=== PATIENT | female | born 1960 | race Two or more races ===

== ENCOUNTER 2021-04-11 18:38 | Inpatient (IN) | payer MEDICAID ==
[~2021-04-11] VITALS: Ht 30.5 cm; Wt 62.3 kg
[2021-04-11] MEDS: ETOMIDATE (2MG/ML) 20ML VIAL IV ONE ×2 (18:41→19:52)
[2021-04-11] MEDS ORDERED: SUCCINYLCHOLINE CHLORIDE 20 MG/ML 10ML VIAL IV ONE (18:41)
[2021-04-11] MEDS: SUCCINYLCHOLINE CHLORIDE 20 MG/ML 10ML VIAL IV ONE (18:42)
[2021-04-11 18:50] VITALS: BP 73/37
[2021-04-11] MEDS ORDERED: SODIUM CHLORIDE 0.9% 1,000 ML IVB ONE (19:00)
[2021-04-11] MEDS ORDERED: CEFEPIME 2 GM in SODIUM CHL 0.9% 50 ML IV ONE (19:00)
[2021-04-11] MEDS: MIDAZOLAM DRIP 50 mg/50mL 50 ML IV SCH (19:00)
[2021-04-11] MEDS ORDERED: VANCOMYCIN 1GM/250ML 250 ML IV ONE (19:00)
[2021-04-11] MEDS ORDERED: NOREPINEPHRINE 8 MG/250ML KIT 250 ML IV ONE (19:16)
[2021-04-11] MEDS ORDERED: MIDAZOLAM DRIP 50 mg/50mL 50 ML IV ONE (19:24)
[2021-04-11] MEDS ORDERED: HYDROCORTISONE SOD SUCC 100 MG/2ML INJ VIAL IV ONE (19:30)
[2021-04-11] MEDS ORDERED: SODIUM BICARBONATE 8.4% INJ 50ML SYRINGE ONE (19:30)
[2021-04-11 19:57] LABS: Basophils # (auto) 0.1 10 ^3/uL (0-0.2); Eosinophils # (auto) 0 10 ^3/uL (0-0.8); Lymphocytes % (auto) 15.7 % (10.0-50.0); Nucleated Red Blood Cells % 0.1 %
[2021-04-11 19:58] LABS: Basophils % (auto) 0.4 % (0.0-2.0); Eosinophils % (auto) 0.1 % (0.0-7.0); Hematocrit 43.1 % (36.0-46.0); Hemoglobin 11.1 g/dL (12.2-16.2); Lymphocytes # (auto) 2.6 10 ^3/uL (0.4-5.4); Mean Corpuscular Hemoglobin 25.5 pg (28.0-32.0); Mean Corpuscular Hgb Conc. 25.7 g/dL (32.0-36.0); Mean Corpuscular Volume 99.5 fL (80.0-100.0); Monocytes # (auto) 0.5 10 ^3/uL (0-1.3); Monocytes % (auto) 3.3 % (0.0-12.0); Neutrophils # (auto) 13.1 10 ^3/uL (1.6-8.6); Neutrophils % (auto) 80.5 % (37.0-80.0); Red Blood Cells 4.33 10^6/uL (4.0-5.20); White Blood Cell 16.3 10^3/uL (4.4-10.8)
[2021-04-11 20:00] LABS: Red Cell Distribution Width 20.7 % (11.8-14.3)
[2021-04-11] MEDS ORDERED: SODIUM BICARBONATE 8.4 % INJ 50ML VIAL IV ONE (20:00)
[2021-04-11 20:04] LABS: Urine Bacteria NONE SEEN /hpf (None Seen); Urine Blood 1+ /uL (Negative); Urine Specific Gravity 1.015 (1.001-1.035); Urine WBC <1 /hpf (0 - 5)
[2021-04-11 20:09] LABS: Alcohol, Urine < 3.0 mg/dL (0-10); Amphetamine Screen, Urine NEGATIVE (NEGATIVE); Barbiturate Scree,Urine NEGATIVE (NEGATIVE); Benzodiazephine Screen, Urine NEGATIVE (NEGATIVE); Cannabinoid Screen, Urine NEGATIVE (NEGATIVE); Opiate Scree,Urine NEGATIVE (NEGATIVE); Phencyclidine Screen, Urine NEGATIVE (NEGATIVE)
[2021-04-11 20:11] LABS: Chloride 113 mmol/L (98-107); Sodium 139 mmol/L (136-145)
[2021-04-11 20:17] LABS: Cocaine Screen, Urine NEGATIVE (NEGATIVE)
[2021-04-11 20:18] LABS: Alanine Aminotransferase 47 U/L (13-56); Albumin 2.8 g/dL (3.4-5.0); Alkaline Phosphatase 236 U/L (45-117); Anion Gap 22 (5-15); Aspartate Aminotransferase 142 U/L (15-37); BUN/Creatinine Ratio 21.2; Bilirubin, Total 0.5 mg/dL (0.2-1.0); Blood Alcohol < 3.0 mg/dL (0-5); Blood Urea Nitrogen 43 mg/dL (7-18); Calcium 7.4 mg/dL (8.5-10.1); GFR African American 32 mL/min; GFR Non-African American 26 mL/min; Total Protein 6.3 g/dL (6.4-8.2)
[2021-04-11 20:28] LABS: Carbon Dioxide 4 mmol/L (21-32); Glucose 745 mg/dL (74-106); Magnesium 4.1 mg/dL (1.6-2.6); Potassium 5.9 mmol/L (3.5-5.1)
[2021-04-11] MEDS: NOREPINEPHRINE 8 MG/250ML KIT 250 ML IV SCH (21:16)
[2021-04-11 21:45] VITALS: BP 122/73
[2021-04-11] MEDS ORDERED: DEXTROSE (50%) 50ML SYRG IV PRN (21:45)
[2021-04-11] MEDS ORDERED: InsuLIN R (HUMAN) 100 UNITS in SODIUM CHL 0.9% 99 ML IV SCH (21:45)
[2021-04-11 22:27] LABS: BUN/Creatinine Ratio 22.7; Calcium 7.8 mg/dL (8.5-10.1); Potassium 5.5 mmol/L (3.5-5.1)
[2021-04-11] MEDS: ACCU-CHEK COMFORT CURVE STRIP VI SCH (23:00)
[2021-04-11] MEDS ORDERED: InsuLIN REG 1unit/0.01ml Soln (100units/ml) ONE (23:51)
[2021-04-12] MEDS: HEPARIN SODIUM (PORCINE) 5000 UNITS/ML 1ML VIAL SC SCH ×2 (00:07→10:00)
[2021-04-12] MEDS: MIDAZOLAM DRIP 50 mg/50mL 50 ML IV SCH ×2 (01:45→19:30)
[2021-04-12] MEDS: ACCU-CHEK COMFORT CURVE STRIP VI SCH ×23 (01:45→20:29)
[2021-04-12] MEDS ORDERED: SODIUM CHLORIDE 0.9% 1,000 ML IV SCH (01:45)
[2021-04-12 02:09] VITALS: BP 118/77
[2021-04-12] MEDS ORDERED: NITROGLYCERIN 0.4 MG SL TAB SL PRN (04:00)
[2021-04-12] MEDS ORDERED: InsuLIN R (HUMAN) 100 UNITS in SODIUM CHL 0.9% 99 ML IV SCH (04:00)
[2021-04-12] MEDS ORDERED: DEXTROSE (50%) 50ML SYRG IV PRN ×2 (04:00→18:30)
[2021-04-12] MEDS ORDERED: ONDANSETRON HCL 4 MG/2 ML VIAL IV PRN (04:00)
[2021-04-12] MEDS ORDERED: MORPHINE SULFATE INJECTION 2 MG/ML SYRG IV PRN (04:00)
[2021-04-12 04:22] LABS: Calcium 7.4 mg/dL (8.5-10.1); Potassium 4.4 mmol/L (3.5-5.1)
[2021-04-12 04:31] LABS: BUN/Creatinine Ratio 23.6
[2021-04-12] MEDS: SODIUM BICARBONATE 50ML VIAL 150 ML in D5W 5% 1,000 ML IV SCH ×3 (04:45→18:30)
[2021-04-12] MEDS ORDERED: LACTULOSE 10g/15ml SOLN NG SCH (06:00)
[2021-04-12] MEDS ORDERED: LACTULOSE 10g/15ml SOLN PR SCH (06:00)
[2021-04-12] MEDS: PIPERACILLIN-TAZOB 2.25GM 50 ML IV SCH ×3 (06:02→18:30)
[2021-04-12 07:30] VITALS: BP 98/68
[2021-04-12] MEDS: ACETAMINOPHEN 325 MG TAB PO PRN (07:37)
[2021-04-12 08:54] LABS: Basophils # (auto) 0 10 ^3/uL (0-0.2); Eosinophils # (auto) 0 10 ^3/uL (0-0.8); Hemoglobin 11.1 g/dL (12.2-16.2); Lymphocytes # (auto) 0.5 10 ^3/uL (0.4-5.4); Mean Corpuscular Hemoglobin 25.1 pg (28.0-32.0); Monocytes # (auto) 0.3 10 ^3/uL (0-1.3); Red Blood Cells 4.41 10^6/uL (4.0-5.20); White Blood Cell 5.6 10^3/uL (4.4-10.8)
[2021-04-12 08:56] LABS: Basophils % (auto) 0.6 % (0.0-2.0); Eosinophils % (auto) 0.2 % (0.0-7.0); Hematocrit 36.3 % (36.0-46.0); Lymphocytes % (auto) 8.1 % (10.0-50.0); Mean Corpuscular Hgb Conc. 30.5 g/dL (32.0-36.0); Mean Corpuscular Volume 82.2 fL (80.0-100.0); Monocytes % (auto) 5.3 % (0.0-12.0); Neutrophils # (auto) 4.8 10 ^3/uL (1.6-8.6); Neutrophils % (auto) 85.8 % (37.0-80.0); Nucleated Red Blood Cells % 0.3 %; Red Cell Distribution Width 19.8 % (11.8-14.3)
[2021-04-12 09:40] LABS: BUN/Creatinine Ratio 20.5; Calcium 7.6 mg/dL (8.5-10.1); Magnesium 2.8 mg/dL (1.6-2.6)
[2021-04-12 09:43] LABS: Potassium 2.8 mmol/L (3.5-5.1)
[2021-04-12 09:44] LABS: Phosphorus 0.6 mg/dL (2.5-4.90)
[2021-04-12] MEDS ORDERED: LACTULOSE 20Gm/30ML SOLN NG SCH (10:00)
[2021-04-12 10:48] VITALS: BP 98/68
[2021-04-12] MEDS: ASPirin 300 MG RECTAL SUPP PR SCH (11:30)
[2021-04-12 12:27] LABS: BUN/Creatinine Ratio 19.3; Calcium 7.8 mg/dL (8.5-10.1)
[2021-04-12] MEDS ORDERED: POTASSIUM PHOSPHATE 22 MEQ in SODIUM CHL 0.9% 100 ML IV ONE (13:15)
[2021-04-12 13:16] LABS: Potassium 2.5 mmol/L (3.5-5.1)
[2021-04-12 14:09] VITALS: BP 97/66
[2021-04-12] MEDS ORDERED: D5W 5% 1,000 ML IV SCH (14:15)
[2021-04-12 16:58] LABS: Calcium 8.2 mg/dL (8.5-10.1)
[2021-04-12 17:01] LABS: BUN/Creatinine Ratio 20.1
[2021-04-12 17:24] LABS: Potassium 2.8 mmol/L (3.5-5.1)
[2021-04-12 18:29] VITALS: BP 140/79
[2021-04-12] MEDS: INSULIN LANTUS (GLARGINE) 1 /0.01ml (100units/ml) SC SCH (19:05)
[2021-04-12] MEDS: InsuLIN REG 1unit/0.01ml Soln (100units/ml) SC SCH (20:00)
[2021-04-12] MEDS ORDERED: POTASSIUM PHOSPHATE 26.4 MEQ in SODIUM CHL 0.9% 100 ML IV ONE (20:00)
[2021-04-12 21:56] VITALS: BP 143/85
[2021-04-12] MEDS: NOREPINEPHRINE 8 MG/250ML KIT 250 ML IV SCH (22:00)
[2021-04-12 23:19] LABS: Calcium 7.9 mg/dL (8.5-10.1)
[2021-04-12 23:21] LABS: BUN/Creatinine Ratio 20.8; Phosphorus 1.8 mg/dL (2.5-4.90)
[2021-04-12 23:30] LABS: Potassium 2.7 mmol/L (3.5-5.1)
[2021-04-13] VITALS (19 sets, daily range): BP systolic 82–139; BP diastolic 51–88
[2021-04-13] MEDS: ACCU-CHEK COMFORT CURVE STRIP VI SCH ×6 (00:09→20:29)
[2021-04-13] MEDS: InsuLIN REG 1unit/0.01ml Soln (100units/ml) SC SCH ×6 (00:23→20:00)
[2021-04-13] MEDS: PIPERACILLIN-TAZOB 2.25GM 50 ML IV SCH ×3 (00:25→14:04)
[2021-04-13 02:39] LABS: Calcium 7.6 mg/dL (8.5-10.1)
[2021-04-13 02:41] LABS: BUN/Creatinine Ratio 19.3
[2021-04-13 02:59] LABS: Potassium 2.8 mmol/L (3.5-5.1)
[2021-04-13] MEDS ORDERED: POTASSIUM EFFERVESENT TAB 25 MEQ NG ONE (05:00)
[2021-04-13] MEDS: SODIUM BICARBONATE 50ML VIAL 150 ML in D5W 5% 1,000 ML IV SCH ×5 (06:04→19:45)
[2021-04-13] MEDS: LACTULOSE 20Gm/30ML SOLN NG SCH ×3 (10:00→22:40)
[2021-04-13] MEDS: ASPirin 300 MG RECTAL SUPP PR SCH (10:00)
[2021-04-13] MEDS: HEPARIN SODIUM (PORCINE) 5000 UNITS/ML 1ML VIAL SC SCH ×2 (10:33→22:41)
[2021-04-13] MEDS: POTASSIUM CHL 20MEQ/50ML 50 ML IV SCH ×3 (10:54→15:25)
[2021-04-13] MEDS: INSULIN LANTUS (GLARGINE) 1 /0.01ml (100units/ml) SC SCH (18:34)
[2021-04-13] MEDS: NOREPINEPHRINE 8 MG/250ML KIT 250 ML IV SCH (21:00)
[2021-04-13 21:28] LABS: Basophils # (auto) 0 10 ^3/uL (0-0.2); Eosinophils # (auto) 0 10 ^3/uL (0-0.8); Eosinophils % (auto) 0.1 % (0.0-7.0); Hemoglobin 9.4 g/dL (12.2-16.2); Monocytes # (auto) 0.5 10 ^3/uL (0-1.3)
[2021-04-13 21:30] LABS: Basophils % (auto) 0.2 % (0.0-2.0); Hematocrit 29.1 % (36.0-46.0); Lymphocytes # (auto) 0.8 10 ^3/uL (0.4-5.4); Lymphocytes % (auto) 12.5 % (10.0-50.0); Mean Corpuscular Hemoglobin 25.2 pg (28.0-32.0); Mean Corpuscular Hgb Conc. 32.2 g/dL (32.0-36.0); Mean Corpuscular Volume 78.1 fL (80.0-100.0); Monocytes % (auto) 7.9 % (0.0-12.0); Neutrophils # (auto) 4.8 10 ^3/uL (1.6-8.6); Neutrophils % (auto) 79.3 % (37.0-80.0); Red Blood Cells 3.72 10^6/uL (4.0-5.20); White Blood Cell 6.1 10^3/uL (4.4-10.8)
[2021-04-13 21:47] LABS: Red Cell Distribution Width 20.6 % (11.8-14.3)
[2021-04-13 21:54] LABS: BUN/Creatinine Ratio 19.3; Calcium 7.4 mg/dL (8.5-10.1); Magnesium 2.1 mg/dL (1.6-2.6); Potassium 3.1 mmol/L (3.5-5.1)
[2021-04-14] VITALS (29 sets, daily range): BP systolic 87–135; BP diastolic 42–92
[2021-04-14] MEDS: InsuLIN REG 1unit/0.01ml Soln (100units/ml) SC SCH ×5 (00:09→17:27)
[2021-04-14] MEDS: ACCU-CHEK COMFORT CURVE STRIP VI SCH ×5 (00:10→17:27)
[2021-04-14] MEDS: SODIUM BICARBONATE 50ML VIAL 150 ML in D5W 5% 1,000 ML IV SCH ×2 (02:05→08:36)
[2021-04-14 03:28] LABS: Basophils # (auto) 0 10 ^3/uL (0-0.2); Basophils % (auto) 0.3 % (0.0-2.0); Eosinophils # (auto) 0 10 ^3/uL (0-0.8); Lymphocytes # (auto) 1.1 10 ^3/uL (0.4-5.4); Monocytes # (auto) 0.4 10 ^3/uL (0-1.3); Neutrophils # (auto) 5.9 10 ^3/uL (1.6-8.6); White Blood Cell 7.4 10^3/uL (4.4-10.8)
[2021-04-14 03:30] LABS: Eosinophils % (auto) 0.2 % (0.0-7.0); Hematocrit 28.7 % (36.0-46.0); Hemoglobin 9.5 g/dL (12.2-16.2); Lymphocytes % (auto) 14.4 % (10.0-50.0); Mean Corpuscular Hemoglobin 25.7 pg (28.0-32.0); Mean Corpuscular Volume 77.7 fL (80.0-100.0); Monocytes % (auto) 5.7 % (0.0-12.0); Neutrophils % (auto) 79.4 % (37.0-80.0); Nucleated Red Blood Cells % 0.1 %; Red Blood Cells 3.69 10^6/uL (4.0-5.20)
[2021-04-14 03:51] LABS: Red Cell Distribution Width 20.7 % (11.8-14.3)
[2021-04-14 03:59] LABS: Albumin 2.1 g/dL (3.4-5.0); Calcium 7.6 mg/dL (8.5-10.1)
[2021-04-14 04:01] LABS: BUN/Creatinine Ratio 20.3
[2021-04-14 04:03] LABS: Bilirubin, Total 0.2 mg/dL (0.2-1.0); Phosphorus 1.8 mg/dL (2.5-4.90); Total Protein 4.6 g/dL (6.4-8.2)
[2021-04-14 05:09] LABS: CRP High Sensitivity 11.6 mg/dL (< 0.3)
[2021-04-14] MEDS: NOREPINEPHRINE 8 MG/250ML KIT 250 ML IV SCH ×2 (06:07→22:31)
[2021-04-14] MEDS: MIDAZOLAM DRIP 50 mg/50mL 50 ML IV SCH ×3 (08:00→21:46)
[2021-04-14] MEDS: LACTULOSE 20Gm/30ML SOLN NG SCH ×2 (08:36→22:00)
[2021-04-14] MEDS: ASPirin 300 MG RECTAL SUPP PR SCH (08:36)
[2021-04-14] MEDS: HEPARIN SODIUM (PORCINE) 5000 UNITS/ML 1ML VIAL SC SCH ×2 (08:37→21:46)
[2021-04-14] MEDS: SOD CHL 0.45% 1,000 ML IV SCH ×2 (10:30→18:04)
[2021-04-14] MEDS: POTASSIUM CHL 20MEQ/50ML 50 ML IV SCH ×3 (10:30→13:01)
[2021-04-14] MEDS ORDERED: DEXTROSE (50%) 50ML SYRG IV PRN (14:15)
[2021-04-14] MEDS ORDERED: POTASSIUM PHOSPHATE 44 MEQ in D5W 5% 250 ML IV ONE (15:00)
[2021-04-14] MEDS: INSULIN LANTUS (GLARGINE) 1 /0.01ml (100units/ml) SC SCH (17:27)
[2021-04-15] VITALS (30 sets, daily range): BP systolic 89–144; BP diastolic 54–97
[2021-04-15] MEDS: InsuLIN REG 1unit/0.01ml Soln (100units/ml) SC SCH ×5 (00:53→23:09)
[2021-04-15] MEDS: ACCU-CHEK COMFORT CURVE STRIP VI SCH ×5 (00:54→23:10)
[2021-04-15] MEDS: SOD CHL 0.45% 1,000 ML IV SCH ×3 (02:26→17:30)
[2021-04-15 03:30] LABS: Basophils # (auto) 0 10 ^3/uL (0-0.2); Basophils % (auto) 0.4 % (0.0-2.0); Eosinophils # (auto) 0 10 ^3/uL (0-0.8); Eosinophils % (auto) 0.4 % (0.0-7.0); Hematocrit 32.9 % (36.0-46.0); Hemoglobin 10.3 g/dL (12.2-16.2); Lymphocytes # (auto) 1.2 10 ^3/uL (0.4-5.4); Lymphocytes % (auto) 26.8 % (10.0-50.0); Mean Corpuscular Hemoglobin 25.1 pg (28.0-32.0); Mean Corpuscular Hgb Conc. 31.5 g/dL (32.0-36.0); Mean Corpuscular Volume 79.6 fL (80.0-100.0); Monocytes # (auto) 0.3 10 ^3/uL (0-1.3); Monocytes % (auto) 7.9 % (0.0-12.0); Neutrophils # (auto) 2.8 10 ^3/uL (1.6-8.6); Neutrophils % (auto) 64.5 % (37.0-80.0); Nucleated Red Blood Cells % 0.1 %; Red Blood Cells 4.13 10^6/uL (4.0-5.20); Red Cell Distribution Width 20.8 % (11.8-14.3); White Blood Cell 4.3 10^3/uL (4.4-10.8)
[2021-04-15 03:48] LABS: Calcium 7.2 mg/dL (8.5-10.1); Potassium 3.7 mmol/L (3.5-5.1)
[2021-04-15 03:50] LABS: Magnesium 1.6 mg/dL (1.6-2.6)
[2021-04-15 03:53] LABS: Phosphorus 4.1 mg/dL (2.5-4.90)
[2021-04-15 03:57] LABS: BUN/Creatinine Ratio 17.9; CRP High Sensitivity 9.28 mg/dL (< 0.3)
[2021-04-15] MEDS: MIDAZOLAM DRIP 50 mg/50mL 50 ML IV SCH (04:22)
[2021-04-15] MEDS: HEPARIN SODIUM (PORCINE) 5000 UNITS/ML 1ML VIAL SC SCH ×2 (08:30→21:28)
[2021-04-15] MEDS: ASPirin 300 MG RECTAL SUPP PR SCH (09:49)
[2021-04-15] MEDS: LACTULOSE 20Gm/30ML SOLN NG SCH ×2 (09:49→21:25)
[2021-04-15] MEDS: INSULIN LANTUS (GLARGINE) 1 /0.01ml (100units/ml) SC SCH (18:57)
[2021-04-16] VITALS (23 sets, daily range): BP systolic 83–126; BP diastolic 50–76
[2021-04-16] MEDS: SOD CHL 0.45% 1,000 ML IV SCH ×2 (00:33→09:30)
[2021-04-16 03:46] LABS: BUN/Creatinine Ratio 17.8; Calcium 7.1 mg/dL (8.5-10.1); Potassium 3.5 mmol/L (3.5-5.1)
[2021-04-16] MEDS: InsuLIN REG 1unit/0.01ml Soln (100units/ml) SC SCH ×4 (05:44→23:47)
[2021-04-16] MEDS: ACCU-CHEK COMFORT CURVE STRIP VI SCH ×4 (05:44→23:54)
[2021-04-16 06:23] LABS: Basophils # (auto) 0 10 ^3/uL (0-0.2); Basophils % (auto) 0.6 % (0.0-2.0); Eosinophils # (auto) 0.1 10 ^3/uL (0-0.8); Eosinophils % (auto) 1.7 % (0.0-7.0); Hemoglobin 9.3 g/dL (12.2-16.2); Lymphocytes # (auto) 1.1 10 ^3/uL (0.4-5.4); Lymphocytes % (auto) 27.8 % (10.0-50.0); Mean Corpuscular Hemoglobin 24.9 pg (28.0-32.0); Mean Corpuscular Volume 80.4 fL (80.0-100.0); Monocytes # (auto) 0.3 10 ^3/uL (0-1.3); Monocytes % (auto) 7.6 % (0.0-12.0); Neutrophils # (auto) 2.5 10 ^3/uL (1.6-8.6); Neutrophils % (auto) 62.3 % (37.0-80.0); Nucleated Red Blood Cells % 0.3 %; Red Blood Cells 3.74 10^6/uL (4.0-5.20); Red Cell Distribution Width 20.7 % (11.8-14.3); White Blood Cell 4.1 10^3/uL (4.4-10.8)
[2021-04-16 06:57] LABS: CRP High Sensitivity 4.9 mg/dL (< 0.3)
[2021-04-16] MEDS: HEPARIN SODIUM (PORCINE) 5000 UNITS/ML 1ML VIAL SC SCH ×3 (10:00→22:52)
[2021-04-16] MEDS: ASPirin 300 MG RECTAL SUPP PR SCH (10:00)
[2021-04-16] MEDS: LACTULOSE 20Gm/30ML SOLN NG SCH ×2 (10:00→22:29)
[2021-04-16] MEDS: ACETYLCYSTEINE 10 %(100MG/ML) SOL 4ML NEB SCH ×2 (12:45→19:10)
[2021-04-16] MEDS: ALBUTEROL SULF 2.5 MG/0.5ML(0.5%) NEB SOLN NEB PRN ×2 (15:23→19:09)
[2021-04-16] MEDS: INSULIN LANTUS (GLARGINE) 1 /0.01ml (100units/ml) SC SCH (17:57)
[2021-04-17] MEDS: ACETYLCYSTEINE 10 %(100MG/ML) SOL 4ML NEB SCH ×4 (00:08→18:42)
[2021-04-17] MEDS: ALBUTEROL SULF 2.5 MG/0.5ML(0.5%) NEB SOLN NEB PRN ×4 (00:09→18:41)
[2021-04-17] MEDS: SOD CHL 0.45% 1,000 ML IV SCH ×5 (02:13→17:30)
[2021-04-17 05:00] VITALS: BP 132/76
[2021-04-17] MEDS: InsuLIN REG 1unit/0.01ml Soln (100units/ml) SC SCH ×3 (05:36→17:54)
[2021-04-17] MEDS: ACCU-CHEK COMFORT CURVE STRIP VI SCH ×3 (05:36→17:55)
[2021-04-17 06:01] LABS: Hemoglobin 10.2 g/dL (12.2-16.2)
[2021-04-17 06:02] LABS: Hematocrit 32.2 % (36.0-46.0); Mean Corpuscular Hemoglobin 25.3 pg (28.0-32.0); Mean Corpuscular Hgb Conc. 31.6 g/dL (32.0-36.0); Red Blood Cells 4.03 10^6/uL (4.0-5.20)
[2021-04-17 06:22] LABS: Potassium 3.2 mmol/L (3.5-5.1)
[2021-04-17 06:23] LABS: Red Cell Distribution Width 20.9 % (11.8-14.3)
[2021-04-17 06:25] LABS: Basophils % (manual) 0 (0.0-2.0); Blast Cells 0; Eosinophils % (manual) 0 (0-7); Metamyelocytes % 0; Myelocytes % 0; Promyelocytes % 0; Reactive Lymphocytes 0
[2021-04-17 06:37] LABS: BUN/Creatinine Ratio 14.1; CRP High Sensitivity 5.86 mg/dL (< 0.3); Calcium 7.9 mg/dL (8.5-10.1)
[2021-04-17 09:00] VITALS: BP 127/69
[2021-04-17] MEDS: HEPARIN SODIUM (PORCINE) 5000 UNITS/ML 1ML VIAL SC SCH ×2 (09:49→21:18)
[2021-04-17] MEDS: ASPirin 300 MG RECTAL SUPP PR SCH (10:03)
[2021-04-17 10:16] LABS: Band Neutrophils % (manual) 2; Lymphocytes % (manual) 26 (10.0-50.0); Monocytes % (manual) 15 (0-12)
[2021-04-17] MEDS: LACTULOSE 20Gm/30ML SOLN NG SCH ×2 (10:37→21:16)
[2021-04-17] MEDS ORDERED: POTASSIUM CHL 20 Meq TABLET PO ONE (12:45)
[2021-04-17 13:00] VITALS: BP 120/63
[2021-04-17] MEDS: ACETAMINOPHEN 325 MG TAB PO PRN (13:37)
[2021-04-17 17:19] VITALS: BP 123/69
[2021-04-17] MEDS: INSULIN LANTUS (GLARGINE) 1 /0.01ml (100units/ml) SC SCH (17:55)
[2021-04-17] MEDS: HYDROcodone-ACET 5/325MG TAB PO PRN (21:40)
[2021-04-18] MEDS: ALBUTEROL SULF 2.5 MG/0.5ML(0.5%) NEB SOLN NEB PRN ×3 (00:45→13:56)
[2021-04-18] MEDS: ACETYLCYSTEINE 10 %(100MG/ML) SOL 4ML NEB SCH ×4 (00:45→19:30)
[2021-04-18] MEDS: InsuLIN REG 1unit/0.01ml Soln (100units/ml) SC SCH ×4 (00:57→18:00)
[2021-04-18] MEDS: ACCU-CHEK COMFORT CURVE STRIP VI SCH ×4 (00:58→18:00)
[2021-04-18 06:02] LABS: Basophils # (auto) 0 10 ^3/uL (0-0.2); Eosinophils # (auto) 0.1 10 ^3/uL (0-0.8); Eosinophils % (auto) 2.2 % (0.0-7.0)
[2021-04-18 06:04] LABS: Basophils % (auto) 0.3 % (0.0-2.0); Hemoglobin 9.3 g/dL (12.2-16.2); Lymphocytes # (auto) 1.1 10 ^3/uL (0.4-5.4); Lymphocytes % (auto) 26.6 % (10.0-50.0); Mean Corpuscular Hemoglobin 25.7 pg (28.0-32.0); Mean Corpuscular Hgb Conc. 32.2 g/dL (32.0-36.0); Mean Corpuscular Volume 79.8 fL (80.0-100.0); Monocytes # (auto) 0.6 10 ^3/uL (0-1.3); Monocytes % (auto) 15.7 % (0.0-12.0); Neutrophils # (auto) 2.2 10 ^3/uL (1.6-8.6); Neutrophils % (auto) 55.2 % (37.0-80.0); Nucleated Red Blood Cells % 0.2 %; Red Blood Cells 3.63 10^6/uL (4.0-5.20)
[2021-04-18 06:13] LABS: Red Cell Distribution Width 20.5 % (11.8-14.3)
[2021-04-18 06:22] LABS: Calcium 7.9 mg/dL (8.5-10.1); Potassium 3.9 mmol/L (3.5-5.1)
[2021-04-18 06:24] LABS: BUN/Creatinine Ratio 10.9
[2021-04-18] MEDS: SOD CHL 0.45% 1,000 ML IV SCH ×3 (07:09→17:30)
[2021-04-18 09:00] VITALS: BP 119/70
[2021-04-18] MEDS: ACETAMINOPHEN 325 MG TAB PO PRN (09:30)
[2021-04-18] MEDS: HEPARIN SODIUM (PORCINE) 5000 UNITS/ML 1ML VIAL SC SCH ×2 (09:57→22:29)
[2021-04-18] MEDS: LACTULOSE 20Gm/30ML SOLN NG SCH ×2 (09:57→22:27)
[2021-04-18] MEDS: ASPirin 300 MG RECTAL SUPP PR SCH ×2 (09:57→10:00)
[2021-04-18 10:25] LABS: CRP High Sensitivity 3.4 mg/dL (< 0.3)
[2021-04-18 12:36] VITALS: BP 125/58
[2021-04-18 17:04] VITALS: BP 136/77
[2021-04-18] MEDS: INSULIN LANTUS (GLARGINE) 1 /0.01ml (100units/ml) SC SCH (18:30)
[2021-04-18 22:00] VITALS: BP 125/70
[2021-04-19] MEDS: InsuLIN REG 1unit/0.01ml Soln (100units/ml) SC SCH ×4 (01:17→18:07)
[2021-04-19] MEDS: HYDROcodone-ACET 5/325MG TAB PO PRN (01:18)
[2021-04-19] MEDS: ACCU-CHEK COMFORT CURVE STRIP VI SCH ×4 (01:18→18:05)
[2021-04-19] MEDS: ALBUTEROL SULF 2.5 MG/0.5ML(0.5%) NEB SOLN NEB PRN ×4 (01:29→19:23)
[2021-04-19] MEDS: ACETYLCYSTEINE 10 %(100MG/ML) SOL 4ML NEB SCH ×4 (01:29→19:22)
[2021-04-19 05:08] LABS: Basophils # (auto) 0 10 ^3/uL (0-0.2); Basophils % (auto) 0.4 % (0.0-2.0); Eosinophils # (auto) 0.1 10 ^3/uL (0-0.8); Hematocrit 28.4 % (36.0-46.0); Lymphocytes # (auto) 0.9 10 ^3/uL (0.4-5.4); Mean Corpuscular Hemoglobin 25.5 pg (28.0-32.0); Mean Corpuscular Hgb Conc. 31.7 g/dL (32.0-36.0); Mean Corpuscular Volume 80.3 fL (80.0-100.0); Monocytes # (auto) 0.5 10 ^3/uL (0-1.3); Monocytes % (auto) 12.8 % (0.0-12.0); Neutrophils # (auto) 2.4 10 ^3/uL (1.6-8.6); Neutrophils % (auto) 60.8 % (37.0-80.0); Nucleated Red Blood Cells % 0.1 %; Red Blood Cells 3.53 10^6/uL (4.0-5.20); Red Cell Distribution Width 20.4 % (11.8-14.3); White Blood Cell 3.9 10^3/uL (4.4-10.8)
[2021-04-19 05:16] VITALS: BP 102/60
[2021-04-19] MEDS: SOD CHL 0.45% 1,000 ML IV SCH ×3 (05:17→11:55)
[2021-04-19 05:24] LABS: BUN/Creatinine Ratio 9.6; Calcium 8.1 mg/dL (8.5-10.1); Potassium 3.1 mmol/L (3.5-5.1)
[2021-04-19 09:00] VITALS: BP 129/71
[2021-04-19] MEDS: HEPARIN SODIUM (PORCINE) 5000 UNITS/ML 1ML VIAL SC SCH ×2 (09:26→21:47)
[2021-04-19] MEDS: ASPirin 300 MG RECTAL SUPP PR SCH (09:27)
[2021-04-19] MEDS: LACTULOSE 20Gm/30ML SOLN NG SCH ×2 (09:28→21:46)
[2021-04-19 13:00] VITALS: BP 129/76
[2021-04-19] MEDS ORDERED: IOHEXOL 300 MG/ML 100ML BOTTLE IJ ONE ×2 (15:34→16:13)
[2021-04-19 17:00] VITALS: BP 125/73
[2021-04-19] MEDS: INSULIN LANTUS (GLARGINE) 1 /0.01ml (100units/ml) SC SCH (18:07)
[2021-04-19] MEDS: SULFACETAMIDE SOD 10% OPTH(EYE) SOL 15ML RIGHTEYE SCH ×2 (19:17→21:57)
[2021-04-19 22:00] VITALS: BP 116/64
[2021-04-20] MEDS: DOXYCYCLINE 100MG/250ML 250 ML IV SCH ×3 (00:01→21:56)
[2021-04-20] MEDS: SULFACETAMIDE SOD 10% OPTH(EYE) SOL 15ML RIGHTEYE SCH ×9 (00:01→21:57)
[2021-04-20] MEDS: ACCU-CHEK COMFORT CURVE STRIP VI SCH ×5 (00:02→23:32)
[2021-04-20] MEDS: ALBUTEROL SULF 2.5 MG/0.5ML(0.5%) NEB SOLN NEB PRN ×5 (00:07→22:53)
[2021-04-20] MEDS: ACETAMINOPHEN 325 MG TAB PO PRN ×2 (00:07→21:57)
[2021-04-20] MEDS: ACETYLCYSTEINE 10 %(100MG/ML) SOL 4ML NEB SCH ×5 (00:08→22:52)
[2021-04-20] MEDS: InsuLIN REG 1unit/0.01ml Soln (100units/ml) SC SCH ×5 (00:08→23:44)
[2021-04-20 05:00] VITALS: BP 109/69
[2021-04-20 05:10] LABS: Basophils # (auto) 0 10 ^3/uL (0-0.2); Eosinophils # (auto) 0.2 10 ^3/uL (0-0.8); Lymphocytes # (auto) 1.8 10 ^3/uL (0.4-5.4); Lymphocytes % (auto) 31.3 % (10.0-50.0); Monocytes # (auto) 0.7 10 ^3/uL (0-1.3); Neutrophils # (auto) 2.9 10 ^3/uL (1.6-8.6); Nucleated Red Blood Cells % 0.1 %
[2021-04-20 05:13] LABS: Basophils % (auto) 0.8 % (0.0-2.0); Hematocrit 27.2 % (36.0-46.0); Hemoglobin 8.8 g/dL (12.2-16.2); Mean Corpuscular Hemoglobin 25.7 pg (28.0-32.0); Mean Corpuscular Hgb Conc. 32.3 g/dL (32.0-36.0); Mean Corpuscular Volume 79.6 fL (80.0-100.0); Monocytes % (auto) 12.1 % (0.0-12.0); Neutrophils % (auto) 51.8 % (37.0-80.0); Red Blood Cells 3.42 10^6/uL (4.0-5.20); White Blood Cell 5.6 10^3/uL (4.4-10.8)
[2021-04-20 05:15] LABS: Red Cell Distribution Width 20.5 % (11.8-14.3)
[2021-04-20 05:40] LABS: Calcium 8.4 mg/dL (8.5-10.1); Potassium 3.3 mmol/L (3.5-5.1)
[2021-04-20 05:50] LABS: BUN/Creatinine Ratio 11.5; CRP High Sensitivity 1.76 mg/dL (< 0.3)
[2021-04-20 06:36] LABS: CRP High Sensitivity 2.46 mg/dL (< 0.3)
[2021-04-20 08:38] VITALS: BP 127/70
[2021-04-20] MEDS: LACTULOSE 20Gm/30ML SOLN NG SCH ×2 (10:00→21:56)
[2021-04-20] MEDS: HEPARIN SODIUM (PORCINE) 5000 UNITS/ML 1ML VIAL SC SCH ×2 (10:02→21:57)
[2021-04-20] MEDS: ASPirin 300 MG RECTAL SUPP PR SCH (10:05)
[2021-04-20] MEDS: SOD CHL 0.45% 1,000 ML IV SCH ×3 (10:58→18:49)
[2021-04-20 13:00] VITALS: BP 140/74
[2021-04-20 17:00] VITALS: BP 128/72
[2021-04-20] MEDS: INSULIN LANTUS (GLARGINE) 1 /0.01ml (100units/ml) SC SCH (17:47)
[2021-04-20 22:00] VITALS: BP 148/83
[2021-04-21] MEDS: SOD CHL 0.45% 1,000 ML IV SCH ×3 (01:35→17:30)
[2021-04-21] MEDS: SULFACETAMIDE SOD 10% OPTH(EYE) SOL 15ML RIGHTEYE SCH ×6 (02:29→17:43)
[2021-04-21] MEDS: ACCU-CHEK COMFORT CURVE STRIP VI SCH ×3 (04:39→17:44)
[2021-04-21] MEDS: ACETAMINOPHEN 325 MG TAB PO PRN (04:39)
[2021-04-21] MEDS: InsuLIN REG 1unit/0.01ml Soln (100units/ml) SC SCH ×3 (04:48→17:47)
[2021-04-21 05:00] VITALS: BP 125/71
[2021-04-21 05:06] LABS: Basophils # (auto) 0 10 ^3/uL (0-0.2); Eosinophils # (auto) 0.1 10 ^3/uL (0-0.8); Mean Corpuscular Hemoglobin 25.5 pg (28.0-32.0); Monocytes # (auto) 0.4 10 ^3/uL (0-1.3); Monocytes % (auto) 8.5 % (0.0-12.0); Neutrophils # (auto) 3.3 10 ^3/uL (1.6-8.6); Nucleated Red Blood Cells % 0.1 %; Red Blood Cells 3.51 10^6/uL (4.0-5.20); White Blood Cell 5.3 10^3/uL (4.4-10.8)
[2021-04-21 05:09] LABS: Basophils % (auto) 0.8 % (0.0-2.0); Eosinophils % (auto) 2.4 % (0.0-7.0); Lymphocytes # (auto) 1.3 10 ^3/uL (0.4-5.4); Lymphocytes % (auto) 25.1 % (10.0-50.0); Mean Corpuscular Volume 79.7 fL (80.0-100.0); Neutrophils % (auto) 63.2 % (37.0-80.0)
[2021-04-21 05:29] LABS: Calcium 8.6 mg/dL (8.5-10.1); Magnesium 2.3 mg/dL (1.6-2.6); Potassium 3.6 mmol/L (3.5-5.1)
[2021-04-21 06:33] LABS: Red Cell Distribution Width 20.4 % (11.8-14.3)
[2021-04-21] MEDS: ALBUTEROL SULF 2.5 MG/0.5ML(0.5%) NEB SOLN NEB PRN ×3 (07:27→18:15)
[2021-04-21] MEDS: ACETYLCYSTEINE 10 %(100MG/ML) SOL 4ML NEB SCH ×3 (07:27→18:15)
[2021-04-21 09:00] VITALS: BP 125/71
[2021-04-21] MEDS: ASPirin 300 MG RECTAL SUPP PR SCH (09:21)
[2021-04-21] MEDS: HEPARIN SODIUM (PORCINE) 5000 UNITS/ML 1ML VIAL SC SCH (09:22)
[2021-04-21] MEDS: LACTULOSE 20Gm/30ML SOLN NG SCH (09:22)
[2021-04-21] MEDS: DOXYCYCLINE 100MG/250ML 250 ML IV SCH (12:16)
[2021-04-21 13:00] VITALS: BP 135/78
[2021-04-21] MEDS ORDERED: DOXY-286 PO (13:01)
[2021-04-21 17:00] VITALS: BP 156/94
[2021-04-21] MEDS: INSULIN LANTUS (GLARGINE) 1 /0.01ml (100units/ml) SC SCH (17:44)
[2021-04-21 18:36] VITALS: BP 142/82
[2021-04-21] MEDS ORDERED: DOXYCYCLINE 100 MG TAB/CAP PO SCH (22:00)
== END 2021-04-21 19:55 | disposition home health service (06) | DRG 130 ==
LOC: EDBD 18:38 → ER 18:43 → TELE 04-12 03:50 → CATH ICU 04-13 08:13 → TELE-CENTR 04-16 17:45
PROVIDERS: ADMIT Hospitalist; ATTEND Hospitalist
PROC: 5A1955Z Respiratory Ventilation, Greater than 96 Consecutive Hours (ICD-10-PCS; principal; 2021-04-11)
PROC: 0BH17EZ Insertion of Endotracheal Airway into Trachea, Via Natural or Artificial Opening (ICD-10-PCS; 2021-04-11)
PROC: 02HV33Z Insertion of Infusion Device into Superior Vena Cava, Percutaneous Approach (ICD-10-PCS; 2021-04-12)
DX: J96.01 Acute respiratory failure with hypoxia (principal); N17.0 Acute kidney failure with tubular necrosis; I21.4 Non-ST elevation (NSTEMI) myocardial infarction; E11.10 Type 2 diabetes mellitus with ketoacidosis without coma; D61.818 Other pancytopenia; E72.20 Disorder of urea cycle metabolism, unspecified; G93.41 Metabolic encephalopathy; D63.1 Anemia in chronic kidney disease; E03.9 Hypothyroidism, unspecified; E87.6 Hypokalemia; E11.22 Type 2 diabetes mellitus with diabetic chronic kidney disease; E87.0 Hyperosmolality and hypernatremia; E88.09 Other disorders of plasma-protein metabolism, not elsewhere classified; J98.11 Atelectasis; Z60.2 Problems related to living alone; E83.39 Other disorders of phosphorus metabolism; A49.02 Methicillin resistant Staphylococcus aureus infection, unspecified site; N18.9 Chronic kidney disease, unspecified; N28.1 Cyst of kidney, acquired; Z20.822 Contact with and (suspected) exposure to COVID-19; Z79.4 Long term (current) use of insulin
CPT/HCPCS: 31500; 36415; 36556; 36600; 70450; 71045; 74176; 74178; 76705; 76775; 80048; 80053; 80307; 80320; 81001; 82010; 82140; 82306; 82728; 82805; 82962; 83036; 83605; 83735; 83930; 83970; 84100; 84484; 85007; 85025; 85027; 85379; 86141; 87040; 87070; 87077; 87081; 87186; 87205; 87426; 92610; 93005; 93306; 94002; 94003; 94640; 96365; 96367; 96375; 97110; 97116; 97163; 97530; 99152; 99153; 99291; G0378; J0330; J1815; J2250; J2543; J3490; J7060

== ENCOUNTER 2021-10-12 13:26 | Emergency (ER) | payer MEDICAID ==
[~2021-10-12] VITALS: Ht 157.5 cm; Wt 49.9 kg
[~2021-10-12 13:26] MED LIST: DOXY-286 PO
[2021-10-12 13:57] LABS: Basophils # (auto) 0 10 ^3/uL (0-0.2); Basophils % (auto) 0.6 % (0.0-2.0); Eosinophils # (auto) 0.1 10 ^3/uL (0-0.8); Eosinophils % (auto) 1.7 % (0.0-7.0); Hematocrit 41.7 % (36.0-46.0); Hemoglobin 13.8 g/dL (12.2-16.2); Lymphocytes # (auto) 1.7 10 ^3/uL (0.4-5.4); Lymphocytes % (auto) 29.7 % (10.0-50.0); Mean Corpuscular Hemoglobin 28.5 pg (28.0-32.0); Mean Corpuscular Hgb Conc. 33.1 g/dL (32.0-36.0); Mean Corpuscular Volume 86.2 fL (80.0-100.0); Monocytes # (auto) 0.4 10 ^3/uL (0-1.3); Monocytes % (auto) 7.6 % (0.0-12.0); Neutrophils # (auto) 3.4 10 ^3/uL (1.6-8.6); Neutrophils % (auto) 60.4 % (37.0-80.0); Red Blood Cells 4.83 10^6/uL (4.0-5.20); White Blood Cell 5.7 10^3/uL (4.4-10.8)
[2021-10-12 14:11] LABS: Albumin 3.7 g/dL (3.4-5.0); Calcium 9.6 mg/dL (8.5-10.1); Potassium 4.7 mmol/L (3.5-5.1)
[2021-10-12 14:15] LABS: BUN/Creatinine Ratio 18.6; Bilirubin, Total 0.3 mg/dL (0.2-1.0); Total Protein 7.4 g/dL (6.4-8.2)
[2021-10-12] MEDS ORDERED: KETOROLAC TROMETH 60MG/2ML VIAL IM ONE (18:00)
[2021-10-13] MEDS ORDERED: diphenhdrAMINE HCL 25 MG CAP PO ONE (11:30)
[2021-10-13 16:04] VITALS: BP 131/68
[2021-10-13] MEDS ORDERED: HYDROcodone-ACET 10/325MG TAB PO ONE (17:45)
[2021-10-13] MEDS ORDERED: InsuLIN REG 1unit/0.01ml Soln (100units/ml) SC ONE (17:45)
== END 2021-10-13 20:45 | disposition home or self-care (01) ==
LOC: EDBD 13:26 → ER 13:26
DX: M51.36 Other intervertebral disc degeneration, lumbar region (principal); E11.9 Type 2 diabetes mellitus without complications; E03.9 Hypothyroidism, unspecified; Z79.2 Long term (current) use of antibiotics
CPT/HCPCS: 36415; 72131; 80053; 84484; 85025; 93005; 96372; 99285; J1885

== ENCOUNTER 2021-10-14 00:48 | Emergency (ER) | payer MEDICAID ==
[~2021-10-14] VITALS: Ht 167.6 cm; Wt 68.0 kg
[2021-10-14 00:50] VITALS: BP 133/92
[2021-10-14] MEDS ORDERED: HYDROcodone-ACET 5/325MG TAB PO ONE (05:45)
== END 2021-10-14 09:00 | disposition home or self-care (01) ==
LOC: ER 00:48 → EDBD 00:48 → ER 09:00
DX: R10.2 Pelvic and perineal pain (principal); E11.9 Type 2 diabetes mellitus without complications; E03.9 Hypothyroidism, unspecified; Z79.2 Long term (current) use of antibiotics
CPT/HCPCS: 74176

== ENCOUNTER 2022-03-28 03:56 | Inpatient (IN) | payer MEDICAID ==
[~2022-03-28] VITALS: Ht 160 cm; Wt 53.5 kg
[2022-03-28 05:07] LABS: Basophils # (auto) 0 10 ^3/uL (0-0.2); Basophils % (auto) 0.5 % (0.0-2.0); Eosinophils # (auto) 0.1 10 ^3/uL (0-0.8); Eosinophils % (auto) 2.1 % (0.0-7.0); Hematocrit 39.7 % (36.0-46.0); Hemoglobin 12.7 g/dL (12.2-16.2); Lymphocytes # (auto) 1.2 10 ^3/uL (0.4-5.4); Lymphocytes % (auto) 27.8 % (10.0-50.0); Mean Corpuscular Hemoglobin 28.3 pg (28.0-32.0); Mean Corpuscular Hgb Conc. 31.9 g/dL (32.0-36.0); Mean Corpuscular Volume 88.9 fL (80.0-100.0); Monocytes # (auto) 0.5 10 ^3/uL (0-1.3); Monocytes % (auto) 10.9 % (0.0-12.0); Neutrophils # (auto) 2.5 10 ^3/uL (1.6-8.6); Neutrophils % (auto) 58.7 % (37.0-80.0); Nucleated Red Blood Cells % 0.1 %; Red Blood Cells 4.47 10^6/uL (4.0-5.20); Red Cell Distribution Width 15.2 % (11.8-14.3); White Blood Cell 4.3 10^3/uL (4.4-10.8)
[2022-03-28 05:21] LABS: INR 0.92 (0.9-1.15); Partial Thromboplastin Time 24.5 sec (24.6-33.4)
[2022-03-28 05:27] LABS: Magnesium 1.7 mg/dL (1.6-2.6); Potassium 4.5 mmol/L (3.5-5.1)
[2022-03-28 05:29] LABS: BUN/Creatinine Ratio 30.7
[2022-03-28 05:32] LABS: Bilirubin, Total 0.4 mg/dL (0.2-1.0); Total Protein 6.1 g/dL (6.4-8.2)
[2022-03-28 09:30] LABS: Urine Specific Gravity 1.018 (1.001-1.035)
[2022-03-28 09:31] LABS: Urine Blood Normal /uL (Negative)
[2022-03-28] MEDS ORDERED: cefTRIAXone 1GM/50ML D5W 50 ML IV ONE (09:45)
[2022-03-28] MEDS ORDERED: CYCLOBENZAPRINE HCL 10 MG TAB PO ONE (09:45)
[2022-03-28] MEDS ORDERED: KETOROLAC TROMETH 30 MG/ML 1ML VIAL IV ONE (09:45)
[2022-03-28] MEDS ORDERED: SODIUM CHLORIDE 0.9% 1,000 ML IV ONE (12:45)
[2022-03-28] MEDS ORDERED: InsuLIN REG 1unit/0.01ml Soln (100units/ml) IV ONE (12:45)
[2022-03-28] MEDS ORDERED: DEXTROSE (50%) 50ML SYRG IV PRN (14:00)
[2022-03-28] MEDS ORDERED: PANTOPRAZOLE 40 MG/10 ML VIAL INJ IV ONE (14:00)
[2022-03-28] MEDS ORDERED: ACETAMINOPHEN 325 MG TAB PO PRN (14:00)
[2022-03-28] MEDS ORDERED: GABA300C10 PO (14:08)
[2022-03-28] MEDS ORDERED: LEVO100T8 PO (14:08)
[2022-03-28] MEDS ORDERED: ATOR40TA52 PO (14:09)
[2022-03-28] MEDS: SODIUM CHLORIDE 0.9% 1,000 ML IV SCH (15:22)
[2022-03-28] MEDS: GABAPENTIN 300 MG CAP PO SCH ×2 (16:41→23:04)
[2022-03-28] MEDS: ACCU-CHEK COMFORT CURVE STRIP VI SCH ×2 (17:00→23:05)
[2022-03-28] MEDS: InsuLIN REG 1unit/0.01ml Soln (100units/ml) SC SCH ×2 (17:02→23:15)
[2022-03-28] MEDS ORDERED: LORazepam 2MG/ML-1ML VIAL IV PRN (19:45)
[2022-03-28 19:57] LABS: Cholesterol 219 mg/dL (< 200)
[2022-03-28 20:00] LABS: HDL Cholesterol 86 mg/dL (40-59); LDL Cholesterol 109 mg/dL (< 100); Triglycerides 158 mg/dL (< 150)
[2022-03-28 22:00] VITALS: BP 151/84
[2022-03-28] MEDS: BACLOFEN 10 MG TAB PO SCH (23:04)
[2022-03-28] MEDS: ASCORBIC ACID 500 MG TAB PO SCH (23:05)
[2022-03-29] MEDS: SODIUM CHLORIDE 0.9% 1,000 ML IV SCH ×2 (04:18→18:24)
[2022-03-29 05:00] VITALS: BP 149/84
[2022-03-29] MEDS: GABAPENTIN 300 MG CAP PO SCH ×3 (05:51→21:40)
[2022-03-29] MEDS: ACCU-CHEK COMFORT CURVE STRIP VI SCH ×4 (05:51→21:41)
[2022-03-29] MEDS: InsuLIN REG 1unit/0.01ml Soln (100units/ml) SC SCH ×4 (05:52→21:58)
[2022-03-29 06:33] LABS: Albumin 2.6 g/dL (3.4-5.0); Calcium 9.3 mg/dL (8.5-10.1); Potassium 4.4 mmol/L (3.5-5.1)
[2022-03-29 06:36] LABS: Bilirubin, Total 0.4 mg/dL (0.2-1.0); Total Protein 6.1 g/dL (6.4-8.2)
[2022-03-29 06:53] LABS: Basophils # (auto) 0 10 ^3/uL (0-0.2); Eosinophils # (auto) 0.1 10 ^3/uL (0-0.8); Eosinophils % (auto) 2.2 % (0.0-7.0); Hematocrit 38.3 % (36.0-46.0); Hemoglobin 12.1 g/dL (12.2-16.2); Lymphocytes # (auto) 1.7 10 ^3/uL (0.4-5.4); Lymphocytes % (auto) 43.5 % (10.0-50.0); Mean Corpuscular Hgb Conc. 31.6 g/dL (32.0-36.0); Mean Corpuscular Volume 88.6 fL (80.0-100.0); Monocytes # (auto) 0.4 10 ^3/uL (0-1.3); Monocytes % (auto) 10.4 % (0.0-12.0); Neutrophils # (auto) 1.7 10 ^3/uL (1.6-8.6); Neutrophils % (auto) 42.9 % (37.0-80.0); Red Blood Cells 4.32 10^6/uL (4.0-5.20); Red Cell Distribution Width 14.7 % (11.8-14.3); White Blood Cell 3.9 10^3/uL (4.4-10.8)
[2022-03-29 09:00] LABS: Free T4 (Free Thyroxine) 0.77 ng/dL (0.89-1.76)
[2022-03-29] MEDS ORDERED: cefTRIAXone 1GM/50ML D5W 50 ML IV SCH (09:00)
[2022-03-29 09:08] VITALS: BP 145/82
[2022-03-29] MEDS: ASCORBIC ACID 500 MG TAB PO SCH ×2 (09:26→21:40)
[2022-03-29] MEDS: PANTOPRAZOLE 40 MG/10 ML VIAL INJ IV SCH (09:26)
[2022-03-29] MEDS: MAGNESIUM OXIDE 400 MG TAB PO SCH ×2 (09:27→21:40)
[2022-03-29] MEDS: MULTIPLE VITAMIN TAB PO SCH (09:27)
[2022-03-29] MEDS: ZINC SULFATE 220mg CAP or TAB PO SCH (09:27)
[2022-03-29] MEDS: BACLOFEN 10 MG TAB PO SCH ×2 (09:27→21:39)
[2022-03-29] MEDS: ENOXAPARIN SOD 40 MG/0.4 ML SYRINGE SC SCH (09:28)
[2022-03-29] MEDS ORDERED: INSULIN LISPRO (HUMAN) 100 UNITS/ML ML SC ONE (12:15)
[2022-03-29 12:39] VITALS: BP 144/94
[2022-03-29] MEDS ORDERED: LEVO100T8 PO (12:45)
[2022-03-29] MEDS ORDERED: INSU1INJ26 SC (12:45)
[2022-03-29] MEDS ORDERED: CYANOCOBALAMIN (B-12) 1000 MCG/1 ML VIAL IM ONE ×2 (12:45→22:15)
[2022-03-29] MEDS ORDERED: LEVOTHYROXINE SODIUM 88 MCG TAB PO ONE (12:45)
[2022-03-29] MEDS ORDERED: ERGOCALCIFEROL 50,000 UNIT(1.25MG) CAP PO SCH (12:45)
[2022-03-29] MEDS ORDERED: CYAN1TAB14 PO (12:45)
[2022-03-29] MEDS ORDERED: ERGO1CAP23 PO (12:45)
[2022-03-29] MEDS ORDERED: INSULIN LANTUS (GLARGINE) 1 /0.01ml (100units/ml) SC ONE (13:00)
[2022-03-29 16:49] VITALS: BP 113/69
[2022-03-29 22:00] VITALS: BP 137/87
[2022-03-30] MEDS: GABAPENTIN 300 MG CAP PO SCH (06:38)
[2022-03-30] MEDS: ACCU-CHEK COMFORT CURVE STRIP VI SCH ×2 (06:39→11:30)
[2022-03-30] MEDS: InsuLIN REG 1unit/0.01ml Soln (100units/ml) SC SCH ×2 (06:43→11:30)
[2022-03-30] MEDS ORDERED: LEVOTHYROXINE SODIUM 88 MCG TAB PO SCH (07:00)
[2022-03-30 08:39] LABS: BUN/Creatinine Ratio 23.9; Calcium 9.1 mg/dL (8.5-10.1)
[2022-03-30] MEDS: SODIUM CHLORIDE 0.9% 1,000 ML IV SCH (08:54)
[2022-03-30 09:00] VITALS: BP 136/87
[2022-03-30] MEDS: ZINC SULFATE 220mg CAP or TAB PO SCH (09:18)
[2022-03-30] MEDS: MULTIPLE VITAMIN TAB PO SCH (09:18)
[2022-03-30] MEDS: BACLOFEN 10 MG TAB PO SCH (09:19)
[2022-03-30] MEDS: ASCORBIC ACID 500 MG TAB PO SCH (09:19)
[2022-03-30] MEDS: PANTOPRAZOLE 40 MG/10 ML VIAL INJ IV SCH (09:19)
[2022-03-30] MEDS: MAGNESIUM OXIDE 400 MG TAB PO SCH (09:20)
[2022-03-30] MEDS: ENOXAPARIN SOD 40 MG/0.4 ML SYRINGE SC SCH (09:20)
[2022-03-30] MEDS ORDERED: CYANOCOBALAMIN 500 MCG TAB PO SCH (10:00)
[2022-03-30] MEDS ORDERED: INSULIN LANTUS (GLARGINE) 1 /0.01ml (100units/ml) SC SCH (10:00)
[2022-03-30] MEDS ORDERED: INSULIN LISPRO (HUMAN) 100 UNITS/ML ML SC ONE (11:45)
[2022-03-30 12:43] VITALS: BP 113/73
[2022-03-30 12:46] LABS: Folate (Folic Acid) > 24.00 ng/mL (5.38-24)
== END 2022-03-30 15:19 | disposition home health service (06) | DRG 204 ==
LOC: EDUNIT# 03:56 → ER 03:56 → EDBD 03:56 → OVERFLOW 13:50 → WEST WING 21:55
PROVIDERS: ADMIT Nurse Practitioner Family; ATTEND Internal Medicine
DX: R55 Syncope and collapse (principal); E43 Unspecified severe protein-calorie malnutrition; I15.2 Hypertension secondary to endocrine disorders; I10 Essential (primary) hypertension; E11.65 Type 2 diabetes mellitus with hyperglycemia; E03.9 Hypothyroidism, unspecified; E55.9 Vitamin D deficiency, unspecified; G89.29 Other chronic pain; Z20.822 Contact with and (suspected) exposure to COVID-19; Z68.20 Body mass index [BMI] 20.0-20.9, adult; Z79.899 Other long term (current) drug therapy; Z91.119 Patient's noncompliance with dietary regimen due to unspecified reason
CPT/HCPCS: 36415; 70551; 71045; 80048; 80053; 80061; 81003; 82306; 82607; 82746; 82962; 83036; 83090; 83735; 83880; 84439; 84443; 84484; 85025; 85610; 85730; 87040; 87426; 87804; 93005; 93886; 96361; 96365; 96372; 96375; 97116; 97163; 97530; C9113; G0378; J0696; J1815; J1885

== ENCOUNTER 2022-05-25 00:36 | Inpatient (IN) | payer MEDICAID ==
[~2022-05-25] VITALS: Ht 157.5 cm; Wt 57.7 kg
[~2022-05-25 00:36] MED LIST changes: +ATOR40TA52 PO; +CYAN1TAB14 PO; -DOXY-286 PO; +ERGO1CAP23 PO; +GABA300C10 PO; +INSU1INJ26 SC; +LEVO100T8 PO
[2022-05-25] MEDS ORDERED: ACCU-CHEK COMFORT CURVE STRIP VI ONE ×2 (01:00→01:15)
[2022-05-25 01:11] LABS: Eosinophils # (auto) 0 10 ^3/uL (0-0.8); Eosinophils % (auto) 0.1 % (0.0-7.0); Hematocrit 53.8 % (36.0-46.0); Lymphocytes # (auto) 3.3 10 ^3/uL (0.4-5.4); Red Blood Cells 5.14 10^6/uL (4.0-5.20)
[2022-05-25 01:13] LABS: Basophils # (auto) 0.1 10 ^3/uL (0-0.2); Basophils % (auto) 0.3 % (0.0-2.0); Hemoglobin 14.1 g/dL (12.2-16.2); Lymphocytes % (auto) 13.8 % (10.0-50.0); Mean Corpuscular Hemoglobin 27.5 pg (28.0-32.0); Mean Corpuscular Hgb Conc. 26.2 g/dL (32.0-36.0); Mean Corpuscular Volume 104.6 fL (80.0-100.0); Monocytes # (auto) 1.5 10 ^3/uL (0-1.3); Monocytes % (auto) 6.5 % (0.0-12.0); Neutrophils # (auto) 18.7 10 ^3/uL (1.6-8.6); Neutrophils % (auto) 79.3 % (37.0-80.0); Nucleated Red Blood Cells % 0.1 %; Red Cell Distribution Width 17.2 % (11.8-14.3); White Blood Cell 23.6 10^3/uL (4.4-10.8)
[2022-05-25 01:19] LABS: Albumin 3.9 g/dL (3.4-5.0); Anion Gap 31 (5-15); BUN/Creatinine Ratio 21.2; Blood Urea Nitrogen 42 mg/dL (7-18); Calcium 9.6 mg/dL (8.5-10.1); Chloride 92 mmol/L (98-107); GFR African American 33 mL/min; GFR Non-African American 27 mL/min; Potassium 5.2 mmol/L (3.5-5.1); Sodium 129 mmol/L (136-145)
[2022-05-25 01:28] LABS: Alanine Aminotransferase 28 U/L (13-56); Alkaline Phosphatase 290 U/L (45-117); Aspartate Aminotransferase 17 U/L (15-37); Bilirubin, Total 0.4 mg/dL (0.2-1.0)
[2022-05-25] MEDS: SODIUM CHLORIDE 0.9% 1,000 ML IV SCH ×5 (01:30→08:19)
[2022-05-25] MEDS ORDERED: DEXTROSE (50%) 50ML SYRG IV PRN ×2 (01:30→21:15)
[2022-05-25] MEDS ORDERED: SODIUM CHLORIDE 0.9% 1,000 ML IV ONE (01:30)
[2022-05-25] MEDS: ACCU-CHEK COMFORT CURVE STRIP VI SCH ×14 (01:30→22:08)
[2022-05-25] MEDS ORDERED: INSULIN LANTUS (GLARGINE) 1 /0.01ml (100units/ml) SC ONE (01:30)
[2022-05-25 01:33] LABS: Carbon Dioxide 6 mmol/L (21-32); Glucose 908 mg/dL (74-106)
[2022-05-25] MEDS ORDERED: InsuLIN REG 1unit/0.01ml Soln (100units/ml) ONE (02:05)
[2022-05-25] MEDS: InsuLIN R (HUMAN) 100 UNITS in SODIUM CHL 0.9% 99 ML IV SCH ×2 (02:06→08:14)
[2022-05-25] MEDS ORDERED: cefTRIAXone 1GM/50ML D5W 50 ML IV ONE (02:15)
[2022-05-25] MEDS ORDERED: hydrALAZINE HCL 20 MG/ML VL IV PRN (02:15)
[2022-05-25] MEDS ORDERED: ACETAMINOPHEN 325 MG TAB PO PRN ×2 (02:15→03:45)
[2022-05-25] MEDS ORDERED: NITROGLYCERIN 0.4 MG SL TAB SL PRN ×2 (02:15→03:45)
[2022-05-25] MEDS ORDERED: ONDANSETRON HCL 4 MG/2 ML VIAL IV PRN ×2 (02:15→03:45)
[2022-05-25] MEDS ORDERED: HYDROcodone-ACET 5/325MG TAB PO PRN ×3 (02:15→23:00)
[2022-05-25] MEDS ORDERED: MORPHINE SULFATE INJ 2 MG/ml SYRG IV PRN ×3 (02:15→03:45)
[2022-05-25] MEDS ORDERED: SODIUM CHLORIDE 0.9% 1,000 ML IV SCH ×3 (02:15→07:30)
[2022-05-25] MEDS ORDERED: DOCUSATE SOD 100 MG CAP PO PRN ×2 (02:15→03:45)
[2022-05-25] MEDS: PIPERACILLIN-TAZOB 3.375GM 100 ML IV SCH ×3 (06:49→18:23)
[2022-05-25] MEDS ORDERED: LEVOTHYROXINE SODIUM 100 MCG TAB PO SCH (07:00)
[2022-05-25] MEDS: ENOXAPARIN SOD 30 MG/0.3 ML SYRINGE SC SCH (08:19)
[2022-05-25 08:33] LABS: Basophils # (auto) 0 10 ^3/uL (0-0.2); Basophils % (auto) 0.3 % (0.0-2.0); Eosinophils # (auto) 0 10 ^3/uL (0-0.8); Hematocrit 40.9 % (36.0-46.0); Hemoglobin 12.9 g/dL (12.2-16.2); Lymphocytes # (auto) 1.5 10 ^3/uL (0.4-5.4); Mean Corpuscular Hemoglobin 27.4 pg (28.0-32.0); Mean Corpuscular Hgb Conc. 31.4 g/dL (32.0-36.0); Mean Corpuscular Volume 87.4 fL (80.0-100.0); Monocytes % (auto) 6.5 % (0.0-12.0); Neutrophils # (auto) 12.8 10 ^3/uL (1.6-8.6); Neutrophils % (auto) 83.2 % (37.0-80.0); Nucleated Red Blood Cells % 0.1 %; Red Blood Cells 4.68 10^6/uL (4.0-5.20); Red Cell Distribution Width 15.5 % (11.8-14.3); White Blood Cell 15.3 10^3/uL (4.4-10.8)
[2022-05-25 08:44] LABS: Albumin 3.2 g/dL (3.4-5.0); Calcium 8.7 mg/dL (8.5-10.1); Potassium 4.4 mmol/L (3.5-5.1)
[2022-05-25 08:47] LABS: BUN/Creatinine Ratio 21.3; Bilirubin, Total 0.3 mg/dL (0.2-1.0); Total Protein 6.9 g/dL (6.4-8.2)
[2022-05-25] MEDS ORDERED: ASPirin 81 mg TAB PO SCH (10:00)
[2022-05-25] MEDS ORDERED: FAMOTIDINE (10MG/ML) 2ML VL IV SCH (10:00)
[2022-05-25] MEDS ORDERED: ENOXAPARIN SOD 40 MG/0.4 ML SYRINGE SC SCH (10:00)
[2022-05-25] MEDS: D5W/SOD CHL 0.45% 1,000 ML IV SCH ×2 (10:18→20:15)
[2022-05-25 13:08] LABS: Potassium 3.8 mmol/L (3.5-5.1)
[2022-05-25 13:13] LABS: Albumin 2.9 g/dL (3.4-5.0); BUN/Creatinine Ratio 20.6; Bilirubin, Total 1.4 mg/dL (0.2-1.0); Calcium 8.4 mg/dL (8.5-10.1); Total Protein 6.7 g/dL (6.4-8.2)
[2022-05-25 18:02] LABS: Urine Bacteria NONE SEEN /hpf (None Seen); Urine Blood 1+ /uL (Negative); Urine Specific Gravity 1.017 (1.001-1.035); Urine WBC 1 /hpf (0 - 5)
[2022-05-25 18:13] LABS: Protein, Urine 81.3 mg/dL (0.0-11.9)
[2022-05-25] MEDS: CALCIUM ACETATE 667 MG CAP PO SCH (18:22)
[2022-05-25 18:38] LABS: Potassium 3.5 mmol/L (3.5-5.1)
[2022-05-25 18:42] LABS: Magnesium 1.7 mg/dL (1.6-2.6); Phosphorus 2.3 mg/dL (2.5-4.90)
[2022-05-25 18:58] LABS: Bilirubin, Total 0.3 mg/dL (0.2-1.0); Total Protein 6.9 g/dL (6.4-8.2)
[2022-05-25] MEDS ORDERED: cefTRIAXone 1GM/50ML D5W 50 ML IV SCH (22:00)
[2022-05-25] MEDS ORDERED: ATORVASTATIN 20 MG TAB PO SCH (22:00)
[2022-05-26] MEDS: InsuLIN REG 1unit/0.01ml Soln (100units/ml) SC SCH ×6 (00:12→20:00)
[2022-05-26] MEDS: PIPERACILLIN-TAZOB 3.375GM 100 ML IV SCH ×4 (00:23→21:14)
[2022-05-26 00:54] LABS: Albumin 2.7 g/dL (3.4-5.0); Calcium 8.7 mg/dL (8.5-10.1); Potassium 3.3 mmol/L (3.5-5.1)
[2022-05-26 00:57] LABS: Bilirubin, Total 0.3 mg/dL (0.2-1.0); Total Protein 6.1 g/dL (6.4-8.2)
[2022-05-26] MEDS ORDERED: POTASSIUM CHL 20 Meq TABLET PO ONE ×2 (03:30→22:00)
[2022-05-26] MEDS: ACETAMINOPHEN 325 MG TAB PO PRN ×2 (03:45→20:30)
[2022-05-26] MEDS: ACCU-CHEK COMFORT CURVE STRIP VI SCH ×6 (03:57→23:57)
[2022-05-26 05:05] LABS: Basophils # (auto) 0 10 ^3/uL (0-0.2); Basophils % (auto) 0.3 % (0.0-2.0); Eosinophils # (auto) 0 10 ^3/uL (0-0.8); Eosinophils % (auto) 0.7 % (0.0-7.0); Hematocrit 34.5 % (36.0-46.0); Hemoglobin 11.5 g/dL (12.2-16.2); Lymphocytes # (auto) 1.2 10 ^3/uL (0.4-5.4); Lymphocytes % (auto) 18.8 % (10.0-50.0); Mean Corpuscular Hemoglobin 28.1 pg (28.0-32.0); Mean Corpuscular Hgb Conc. 33.3 g/dL (32.0-36.0); Mean Corpuscular Volume 84.4 fL (80.0-100.0); Monocytes # (auto) 0.4 10 ^3/uL (0-1.3); Monocytes % (auto) 6.2 % (0.0-12.0); Neutrophils # (auto) 4.8 10 ^3/uL (1.6-8.6); Nucleated Red Blood Cells % 0.1 %; Red Blood Cells 4.09 10^6/uL (4.0-5.20); Red Cell Distribution Width 15.4 % (11.8-14.3); White Blood Cell 6.5 10^3/uL (4.4-10.8)
[2022-05-26 05:23] LABS: Albumin 2.6 g/dL (3.4-5.0); BUN/Creatinine Ratio 13.8; Calcium 8.7 mg/dL (8.5-10.1); Potassium 3.3 mmol/L (3.5-5.1)
[2022-05-26 05:26] LABS: Bilirubin, Total 0.3 mg/dL (0.2-1.0); Total Protein 6.1 g/dL (6.4-8.2)
[2022-05-26] MEDS: D5W/SOD CHL 0.45% 1,000 ML IV SCH (07:52)
[2022-05-26] MEDS: CALCIUM ACETATE 667 MG CAP PO SCH (09:15)
[2022-05-26] MEDS ORDERED: INSULIN LANTUS (GLARGINE) 1 /0.01ml (100units/ml) SC SCH (10:00)
[2022-05-26] MEDS: ENOXAPARIN SOD 30 MG/0.3 ML SYRINGE SC SCH (10:00)
[2022-05-26] MEDS ORDERED: LEVOTHYROXINE SODIUM 100 MCG TAB PO ONE (11:45)
[2022-05-26 12:40] LABS: Calcium 8.3 mg/dL (8.5-10.1); Potassium 3.3 mmol/L (3.5-5.1)
[2022-05-26 12:47] LABS: Albumin 2.6 g/dL (3.4-5.0); BUN/Creatinine Ratio 10.8; Bilirubin, Total 0.6 mg/dL (0.2-1.0); Total Protein 6.1 g/dL (6.4-8.2)
[2022-05-26] MEDS: POTASSIUM CHL 20MEQ/100ML 100 ML IV SCH ×2 (13:56→20:31)
[2022-05-26 18:32] LABS: Albumin 2.4 g/dL (3.4-5.0); BUN/Creatinine Ratio 11.1; Calcium 8.1 mg/dL (8.5-10.1); Potassium 3.6 mmol/L (3.5-5.1)
[2022-05-26 18:33] VITALS: BP 168/99
[2022-05-26 18:35] LABS: Bilirubin, Total 0.3 mg/dL (0.2-1.0); Total Protein 5.8 g/dL (6.4-8.2)
[2022-05-26] MEDS ORDERED: POTASSIUM CHL 20MEQ/100ML 100 ML IV SCH (20:30)
[2022-05-26 22:00] VITALS: BP 148/38
[2022-05-27] MEDS: InsuLIN REG 1unit/0.01ml Soln (100units/ml) SC SCH ×6 (00:03→21:56)
[2022-05-27] MEDS: D5W/SOD CHL 0.45% 1,000 ML IV SCH ×4 (01:18→22:15)
[2022-05-27] MEDS: PIPERACILLIN-TAZOB 3.375GM 100 ML IV SCH ×4 (03:17→20:36)
[2022-05-27] MEDS: ACCU-CHEK COMFORT CURVE STRIP VI SCH ×4 (04:11→21:46)
[2022-05-27 05:00] VITALS: BP 147/72
[2022-05-27] MEDS: LEVOTHYROXINE SODIUM 100 MCG TAB PO SCH (07:32)
[2022-05-27 08:00] VITALS: BP 149/98
[2022-05-27 09:00] VITALS: BP 149/98
[2022-05-27] MEDS: ACETAMINOPHEN 325 MG TAB PO PRN (09:24)
[2022-05-27] MEDS: ENOXAPARIN SOD 30 MG/0.3 ML SYRINGE SC SCH (09:24)
[2022-05-27] MEDS: ENOXAPARIN SOD 40 MG/0.4 ML SYRINGE SC SCH (09:40)
[2022-05-27] MEDS ORDERED: DEXTROSE (50%) 50ML SYRG IV PRN (12:45)
[2022-05-27 13:00] VITALS: BP 144/90
[2022-05-27] MEDS: GABAPENTIN 300 MG CAP PO SCH ×2 (13:46→21:38)
[2022-05-27] MEDS ORDERED: InsuLIN REG 1unit/0.01ml Soln (100units/ml) SC SCH (16:00)
[2022-05-27] MEDS ORDERED: ACCU-CHEK COMFORT CURVE STRIP VI SCH (16:00)
[2022-05-27 16:52] VITALS: BP 133/78
[2022-05-27 22:00] VITALS: BP 155/98
[2022-05-27] MEDS ORDERED: guaiFENesin-DM 100/10mg/5ml SYR PO PRN (22:00)
[2022-05-28] MEDS: PIPERACILLIN-TAZOB 3.375GM 100 ML IV SCH ×3 (02:06→14:09)
[2022-05-28 05:00] VITALS: BP 120/65
[2022-05-28] MEDS: GABAPENTIN 300 MG CAP PO SCH ×2 (05:06→13:23)
[2022-05-28] MEDS: LEVOTHYROXINE SODIUM 100 MCG TAB PO SCH (06:18)
[2022-05-28] MEDS: InsuLIN REG 1unit/0.01ml Soln (100units/ml) SC SCH ×3 (06:23→18:07)
[2022-05-28] MEDS: ACCU-CHEK COMFORT CURVE STRIP VI SCH ×3 (06:24→18:07)
[2022-05-28 08:45] VITALS: BP 146/86
[2022-05-28] MEDS: D5W/SOD CHL 0.45% 1,000 ML IV SCH ×2 (09:04→11:13)
[2022-05-28] MEDS: ENOXAPARIN SOD 40 MG/0.4 ML SYRINGE SC SCH (09:06)
[2022-05-28 13:05] VITALS: BP 143/80
[2022-05-28 16:10] VITALS: BP 128/75
== END 2022-05-28 20:26 | DRG 420 ==
LOC: ER 00:36 → EDBD 00:36 → OVERFLOW 03:39 → TELE 10:37 → TELE-WESTW 05-26 18:36
PROVIDERS: ADMIT Internal Medicine; ATTEND Internal Medicine
DX: E11.10 Type 2 diabetes mellitus with ketoacidosis without coma (principal); N17.0 Acute kidney failure with tubular necrosis; G93.41 Metabolic encephalopathy; E03.9 Hypothyroidism, unspecified; E83.39 Other disorders of phosphorus metabolism; I12.9 Hypertensive chronic kidney disease with stage 1 through stage 4 chronic kidney disease, or unspecified chronic kidney disease; N18.9 Chronic kidney disease, unspecified; E87.6 Hypokalemia; Z79.899 Other long term (current) drug therapy; Z20.822 Contact with and (suspected) exposure to COVID-19
CPT/HCPCS: 36415; 36600; 76775; 80053; 81001; 82010; 82306; 82570; 82805; 82962; 83735; 83930; 83970; 84100; 84156; 84300; 84443; 85025; 87081; 87426; 93005; 93306; 96361; 96365; 96367; 96372; 96375; 97110; 97116; 97163; 97530; 99291; G0378; J0696; J1815; J2543; J3480

== ENCOUNTER 2022-08-08 18:25 | Inpatient (IN) | payer MEDICAID ==
[~2022-08-08] VITALS: Ht 154.9 cm; Wt 63.0 kg
[2022-08-08 19:53] LABS: Hematocrit 46.1 % (36.0-46.0); Hemoglobin 14.8 g/dL (12.2-16.2); Mean Corpuscular Hemoglobin 27.2 pg (28.0-32.0); Mean Corpuscular Hgb Conc. 32.1 g/dL (32.0-36.0); Mean Corpuscular Volume 84.9 fL (80.0-100.0); Red Blood Cells 5.43 10^6/uL (4.0-5.20); White Blood Cell 8.1 10^3/uL (4.4-10.8)
[2022-08-08 20:01] LABS: Band Neutrophils % (manual) 0; Basophils % (manual) 0 (0.0-2.0); Eosinophils % (manual) 0 (0-7)
[2022-08-08 20:02] LABS: Blast Cells 0; Metamyelocytes % 0; Myelocytes % 0; Promyelocytes % 0; Reactive Lymphocytes 0
[2022-08-08 20:10] LABS: Calcium 9.6 mg/dL (8.5-10.1); Potassium 4.3 mmol/L (3.5-5.1)
[2022-08-08 20:17] LABS: Albumin 3.6 g/dL (3.4-5.0); BUN/Creatinine Ratio 26.7 (10.0-20.0); Bilirubin, Total 0.3 mg/dL (0.2-1.0); Total Protein 7.2 g/dL (6.4-8.2)
[2022-08-08 20:29] LABS: Lymphocytes % (manual) 34 (10.0-50.0); Monocytes % (manual) 4 (0-12)
[2022-08-09] MEDS ORDERED: OXYCODONE W/ ACETAMINOPHEN 5/325MG TABLET PO ONE (05:45)
[2022-08-09] MEDS ORDERED: SODIUM CHLORIDE 0.9% 500 ML IV ONE (08:15)
[2022-08-09] MEDS ORDERED: ASPirin 81 mg TAB PO ONE (08:15)
[2022-08-09] MEDS ORDERED: InsuLIN REG 1unit/0.01ml Soln (100units/ml) IV ONE (08:15)
[2022-08-09] MEDS ORDERED: ALOG1TAB2 PO (09:34)
[2022-08-09] MEDS ORDERED: DAPA1TAB4 PO (09:34)
[2022-08-09] MEDS ORDERED: BACL10TA PO (09:34)
[2022-08-09] MEDS ORDERED: DEXTROSE (50%) 50ML SYRG IV PRN (09:45)
[2022-08-09] MEDS ORDERED: ONDANSETRON HCL 4 MG/2 ML VIAL IV PRN (09:45)
[2022-08-09] MEDS ORDERED: MORPHINE SULFATE 4 MG/ML SYR/VIAL IV PRN (09:45)
[2022-08-09] MEDS ORDERED: ERGOCALCIFEROL 50,000 UNIT(1.25MG) CAP PO SCH (09:45)
[2022-08-09] MEDS ORDERED: NITROGLYCERIN 0.4 MG SL TAB SL PRN (09:45)
[2022-08-09] MEDS: DOCUSATE SOD 100 MG CAP PO SCH (10:00)
[2022-08-09] MEDS: ASPirin 81 mg TAB PO SCH (10:00)
[2022-08-09] MEDS ORDERED: ATORVASTATIN CALCIUM PO SCH (10:00)
[2022-08-09] MEDS: CYANOCOBALAMIN 500 MCG TAB PO SCH (10:21)
[2022-08-09] MEDS: SODIUM CHLORIDE 0.9% 1,000 ML IV SCH ×2 (10:23→19:45)
[2022-08-09] MEDS: LISINOPRIL 5 MG TAB PO SCH (10:23)
[2022-08-09] MEDS: ENOXAPARIN SOD 30 MG/0.3 ML SYRINGE SC SCH (10:24)
[2022-08-09] MEDS ORDERED: LEVOTHYROXINE SODIUM 100 MCG TAB PO ONE (10:30)
[2022-08-09 10:34] LABS: Magnesium 2.2 mg/dL (1.6-2.6)
[2022-08-09] MEDS: InsuLIN REG 1unit/0.01ml Soln (100units/ml) SC SCH ×3 (11:51→23:08)
[2022-08-09] MEDS: ACCU-CHEK COMFORT CURVE STRIP VI SCH ×3 (11:51→22:00)
[2022-08-09] MEDS: GABAPENTIN 300 MG CAP PO SCH ×2 (14:02→22:53)
[2022-08-09] MEDS: ACETAMINOPHEN 325 MG TAB PO PRN ×2 (14:23→22:54)
[2022-08-09] MEDS ORDERED: SODIUM CHLORIDE 0.9% 1,000 ML IV ONE (18:30)
[2022-08-09 22:38] VITALS: BP 109/67
[2022-08-09] MEDS: ATORVASTATIN 20 MG TAB PO SCH (22:53)
[2022-08-10] VITALS (7 sets, daily range): BP systolic 99–150; BP diastolic 72–97
[2022-08-10] MEDS: HYDROcodone-ACET 5/325MG TAB PO PRN ×2 (04:03→20:31)
[2022-08-10] MEDS ORDERED: LEVO100T8 PO (04:36)
[2022-08-10] MEDS ORDERED: SENN1TAB14 PO (04:40)
[2022-08-10] MEDS ORDERED: PERCOT PO (04:40)
[2022-08-10 06:06] LABS: Basophils # (auto) 0 10 ^3/uL (0-0.2); Basophils % (auto) 0.5 % (0.0-2.0); Eosinophils # (auto) 0.1 10 ^3/uL (0-0.8); Eosinophils % (auto) 2.5 % (0.0-7.0); Hematocrit 38.2 % (36.0-46.0); Hemoglobin 12.1 g/dL (12.2-16.2); Lymphocytes # (auto) 1.5 10 ^3/uL (0.4-5.4); Mean Corpuscular Hemoglobin 27.8 pg (28.0-32.0); Mean Corpuscular Hgb Conc. 31.8 g/dL (32.0-36.0); Mean Corpuscular Volume 87.4 fL (80.0-100.0); Monocytes # (auto) 0.4 10 ^3/uL (0-1.3); Monocytes % (auto) 8.3 % (0.0-12.0); Neutrophils # (auto) 2.4 10 ^3/uL (1.6-8.6); Neutrophils % (auto) 54.7 % (37.0-80.0); Nucleated Red Blood Cells % 0.3 %; Red Blood Cells 4.37 10^6/uL (4.0-5.20); Red Cell Distribution Width 16.6 % (11.8-14.3); White Blood Cell 4.4 10^3/uL (4.4-10.8)
[2022-08-10 06:32] LABS: Potassium 4.4 mmol/L (3.5-5.1)
[2022-08-10 06:38] LABS: Albumin 2.6 g/dL (3.4-5.0); BUN/Creatinine Ratio 26.1 (10.0-20.0); Bilirubin, Total 0.3 mg/dL (0.2-1.0); Calcium 8.4 mg/dL (8.5-10.1); Total Protein 5.7 g/dL (6.4-8.2)
[2022-08-10] MEDS: LEVOTHYROXINE SODIUM 100 MCG TAB PO SCH (06:43)
[2022-08-10] MEDS: GABAPENTIN 300 MG CAP PO SCH ×3 (06:43→21:28)
[2022-08-10] MEDS: ACCU-CHEK COMFORT CURVE STRIP VI SCH ×4 (06:44→21:36)
[2022-08-10] MEDS: SODIUM CHLORIDE 0.9% 1,000 ML IV SCH ×2 (06:45→15:45)
[2022-08-10] MEDS: InsuLIN REG 1unit/0.01ml Soln (100units/ml) SC SCH ×4 (06:53→21:36)
[2022-08-10] MEDS ORDERED: ADENOSINE 50 MG in GIVE UN-DILUTED 0 ML IV ONE (08:15)
[2022-08-10] MEDS: ENOXAPARIN SOD 30 MG/0.3 ML SYRINGE SC SCH (10:00)
[2022-08-10] MEDS: DOCUSATE SOD 100 MG CAP PO SCH (10:00)
[2022-08-10] MEDS: ASPirin 81 mg TAB PO SCH (10:00)
[2022-08-10] MEDS: CYANOCOBALAMIN 500 MCG TAB PO SCH (10:00)
[2022-08-10] MEDS: LISINOPRIL 5 MG TAB PO SCH (10:00)
[2022-08-10] MEDS ORDERED: BACLOFEN 10 MG TAB PO ONE (12:00)
[2022-08-10] MEDS ORDERED: DOCUSATE SOD 100 MG CAP PO ONE (20:30)
[2022-08-10] MEDS: ATORVASTATIN 20 MG TAB PO SCH (21:28)
[2022-08-10] MEDS: BACLOFEN 10 MG TAB PO SCH (21:29)
[2022-08-11] MEDS: SODIUM CHLORIDE 0.9% 1,000 ML IV SCH (00:52)
[2022-08-11 05:00] VITALS: BP 130/78
[2022-08-11] MEDS: GABAPENTIN 300 MG CAP PO SCH (05:58)
[2022-08-11] MEDS: LEVOTHYROXINE SODIUM 100 MCG TAB PO SCH (06:00)
[2022-08-11] MEDS: ACCU-CHEK COMFORT CURVE STRIP VI SCH (06:11)
[2022-08-11] MEDS: InsuLIN REG 1unit/0.01ml Soln (100units/ml) SC SCH (06:11)
[2022-08-11] MEDS: HYDROcodone-ACET 5/325MG TAB PO PRN (06:15)
[2022-08-11 08:00] VITALS: BP 140/83
[2022-08-11 08:38] VITALS: BP 140/83
[2022-08-11 09:56] VITALS: BP 126/79
[2022-08-11] MEDS ORDERED: ENOXAPARIN SOD 40 MG/0.4 ML SYRINGE SC SCH (10:00)
[2022-08-11] MEDS: CYANOCOBALAMIN 500 MCG TAB PO SCH (10:00)
[2022-08-11] MEDS: BACLOFEN 10 MG TAB PO SCH (10:00)
[2022-08-11] MEDS: ASPirin 81 mg TAB PO SCH (10:00)
[2022-08-11] MEDS: DOCUSATE SOD 100 MG CAP PO SCH (10:00)
[2022-08-11] MEDS: LISINOPRIL 5 MG TAB PO SCH (10:01)
== END 2022-08-11 11:45 | disposition home or self-care (01) | DRG 203 ==
LOC: ER 18:25 → EDBD 18:25 → TELE 08-09 09:40 → TELE-WESTW 08-09 22:35
PROVIDERS: ADMIT Nurse Practitioner Family; ATTEND Family Medicine
DX: R07.89 Other chest pain (principal); E03.9 Hypothyroidism, unspecified; I10 Essential (primary) hypertension; E11.65 Type 2 diabetes mellitus with hyperglycemia; E78.00 Pure hypercholesterolemia, unspecified; E78.5 Hyperlipidemia, unspecified; Z91.199 Patient's noncompliance with other medical treatment and regimen due to unspecified reason; Z90.710 Acquired absence of both cervix and uterus; Z79.4 Long term (current) use of insulin; Z72.0 Tobacco use; Z71.6 Tobacco abuse counseling
CPT/HCPCS: 36415; 71045; 78452; 80053; 80061; 82010; 82962; 83036; 83735; 84443; 84484; 85007; 85025; 85027; 93017; 93306; 96361; 96372; 96374; G0378; J0153; J1815

== ENCOUNTER 2022-09-10 16:40 | Inpatient (IN) | payer MEDICAID ==
[~2022-09-10] VITALS: Ht 160 cm; Wt 56.8 kg
[~2022-09-10 16:40] MED LIST changes: +ALOG1TAB2 PO; -ATOR40TA52 PO; +BACL10TA PO; -CYAN1TAB14 PO; +DAPA1TAB4 PO; -ERGO1CAP23 PO; +GABA-1250 PO; -GABA300C10 PO; +PERCOT PO; +SENN1TAB14 PO
[2022-09-10] MEDS ORDERED: SODIUM CHLORIDE 0.9% 500 ML IVB ONE (20:00)
[2022-09-10 20:23] LABS: Albumin 3.3 g/dL (3.4-5.0); Calcium 9.1 mg/dL (8.5-10.1); Magnesium 2.5 mg/dL (1.6-2.6); Potassium 4.6 mmol/L (3.5-5.1)
[2022-09-10 20:27] LABS: BUN/Creatinine Ratio 18.1 (10.0-20.0); Bilirubin, Total 0.2 mg/dL (0.2-1.0); Total Protein 7.2 g/dL (6.4-8.2)
[2022-09-10 21:13] LABS: Basophils # (auto) 0 10 ^3/uL (0-0.2); Basophils % (auto) 0.9 % (0.0-2.0); Eosinophils # (auto) 0.1 10 ^3/uL (0-0.8); Eosinophils % (auto) 1.4 % (0.0-7.0); Hematocrit 40.1 % (36.0-46.0); Hemoglobin 13.2 g/dL (12.2-16.2); Lymphocytes # (auto) 1.4 10 ^3/uL (0.4-5.4); Lymphocytes % (auto) 26.8 % (10.0-50.0); Mean Corpuscular Hemoglobin 28.2 pg (28.0-32.0); Mean Corpuscular Volume 85.5 fL (80.0-100.0); Monocytes # (auto) 0.3 10 ^3/uL (0-1.3); Monocytes % (auto) 6.6 % (0.0-12.0); Neutrophils # (auto) 3.4 10 ^3/uL (1.6-8.6); Neutrophils % (auto) 64.3 % (37.0-80.0); Nucleated Red Blood Cells % 0.1 %; Red Blood Cells 4.69 10^6/uL (4.0-5.20); Red Cell Distribution Width 16.5 % (11.8-14.3); White Blood Cell 5.3 10^3/uL (4.4-10.8)
[2022-09-10] MEDS ORDERED: NITR-87 PO (21:37)
[2022-09-11 00:37] LABS: Urine Bacteria NONE SEEN /hpf (None Seen); Urine Blood Negative /uL (Negative); Urine Specific Gravity 1.024 (1.001-1.035); Urine WBC 1 /hpf (0 - 5)
[2022-09-11] MEDS ORDERED: TEMAZEPAM 15 MG CAP PO ONE (02:15)
[2022-09-11] MEDS ORDERED: BACLOFEN 10 MG TAB PO ONE (10:15)
[2022-09-11] MEDS ORDERED: LORazepam 2MG/ML-1ML VIAL IV ONE (12:30)
[2022-09-11] MEDS ORDERED: DEXTROSE (50%) 50ML SYRG IV ONE (12:30)
[2022-09-11] MEDS ORDERED: KETOROLAC TROMETH 30 MG/ML 1ML VIAL IV ONE (12:30)
[2022-09-11] MEDS ORDERED: InsuLIN REG 1unit/0.01ml Soln (100units/ml) SC ONE (17:00)
[2022-09-11] MEDS ORDERED: ACCU-CHEK COMFORT CURVE STRIP VI ONE (17:00)
[2022-09-12] MEDS ORDERED: MORPHINE SULFATE 4 MG/ML SYR/VIAL IV ONE (02:00)
[2022-09-12] MEDS ORDERED: LORazepam 2MG/ML-1ML VIAL IV ONE (02:00)
[2022-09-12] MEDS ORDERED: diphenhdrAMINE HCL 50 MG/1 ML VL IV ONE ×2 (04:30→17:45)
[2022-09-12] MEDS ORDERED: HALOPERIDOL LACTATE 5 MG/ML INJ VIAL IM ONE (08:00)
[2022-09-12] MEDS: FLEET ENEMA(ADULT) 135 ML PR ONE ×2 (10:00→22:22)
[2022-09-12] MEDS ORDERED: CARISOPRODOL 350 MG TAB PO ONE (11:30)
[2022-09-12] MEDS ORDERED: SODIUM CHLORIDE 0.9% 1,000 ML IV ONE ×2 (11:45→17:00)
[2022-09-12 12:18] LABS: Basophils # (auto) 0 10 ^3/uL (0-0.2); Eosinophils # (auto) 0 10 ^3/uL (0-0.8)
[2022-09-12 12:21] LABS: Basophils % (auto) 0.2 % (0.0-2.0); Hematocrit 39.2 % (36.0-46.0); Hemoglobin 12.3 g/dL (12.2-16.2); Lymphocytes # (auto) 1.1 10 ^3/uL (0.4-5.4); Lymphocytes % (auto) 9.7 % (10.0-50.0); Mean Corpuscular Hemoglobin 27.5 pg (28.0-32.0); Mean Corpuscular Hgb Conc. 31.3 g/dL (32.0-36.0); Mean Corpuscular Volume 87.8 fL (80.0-100.0); Monocytes # (auto) 0.9 10 ^3/uL (0-1.3); Monocytes % (auto) 8.2 % (0.0-12.0); Neutrophils # (auto) 9.4 10 ^3/uL (1.6-8.6); Neutrophils % (auto) 81.9 % (37.0-80.0); Nucleated Red Blood Cells % 0.1 %; Red Blood Cells 4.47 10^6/uL (4.0-5.20); Red Cell Distribution Width 17.1 % (11.8-14.3); White Blood Cell 11.4 10^3/uL (4.4-10.8)
[2022-09-12 12:34] LABS: Albumin 3.8 g/dL (3.4-5.0); Calcium 9.7 mg/dL (8.5-10.1); Potassium 5.2 mmol/L (3.5-5.1)
[2022-09-12 12:37] LABS: Bilirubin, Total 0.8 mg/dL (0.2-1.0); Total Protein 7.1 g/dL (6.4-8.2)
[2022-09-12] MEDS ORDERED: SODIUM CHLORIDE 0.9% 1,000 ML IV SCH ×2 (12:45→19:00)
[2022-09-12] MEDS ORDERED: MORPHINE SULFATE INJ 2 MG/ml SYRG IV PRN ×2 (12:45→13:00)
[2022-09-12] MEDS ORDERED: NITROGLYCERIN 0.4 MG SL TAB SL PRN ×2 (12:45→13:00)
[2022-09-12] MEDS ORDERED: DEXTROSE (50%) 50ML SYRG IV PRN ×3 (12:45→22:00)
[2022-09-12] MEDS ORDERED: LACTULOSE 20Gm/30ML SOLN PO ONE (12:45)
[2022-09-12] MEDS ORDERED: PANTOPRAZOLE 40 MG/10 ML VIAL INJ IV ONE (13:00)
[2022-09-12] MEDS ORDERED: InsuLIN R (HUMAN) 100 UNITS in SODIUM CHL 0.9% 99 ML IV SCH (13:00)
[2022-09-12 13:21] LABS: Magnesium 2.4 mg/dL (1.6-2.6); Phosphorus 5.3 mg/dL (2.5-4.90)
[2022-09-12] MEDS ORDERED: ACCU-CHEK COMFORT CURVE STRIP VI SCH ×2 (13:30→17:00)
[2022-09-12] MEDS: GABAPENTIN 300 MG CAP PO SCH ×3 (14:00→22:21)
[2022-09-12 14:57] LABS: BUN/Creatinine Ratio 25.4 (10.0-20.0); Calcium 8.2 mg/dL (8.5-10.1)
[2022-09-12] MEDS ORDERED: SODIUM CHLORIDE 0.9% 2,000 ML IV ONE (15:45)
[2022-09-12] MEDS: ACCU-CHEK COMFORT CURVE STRIP VI SCH ×4 (16:06→21:16)
[2022-09-12] MEDS ORDERED: InsuLIN REG 1unit/0.01ml Soln (100units/ml) SC SCH (17:00)
[2022-09-12] MEDS ORDERED: D5W/SOD CHLO 0.9% 1,000 ML IV ONE (17:45)
[2022-09-12] MEDS ORDERED: D5W/SOD CHL 0.45% 1,000 ML IV ONE (17:45)
[2022-09-12 19:14] LABS: Albumin 3.1 g/dL (3.4-5.0); Calcium 7.3 mg/dL (8.5-10.1); Potassium 4.6 mmol/L (3.5-5.1)
[2022-09-12 19:17] LABS: BUN/Creatinine Ratio 25.2 (10.0-20.0); Bilirubin, Total 0.5 mg/dL (0.2-1.0); Total Protein 6.2 g/dL (6.4-8.2)
[2022-09-12] MEDS: BACLOFEN 10 MG TAB PO SCH ×2 (22:00→22:21)
[2022-09-12] MEDS ORDERED: SODIUM BICARBONATE 50ML VIAL 100 ML in SOD CHL 0.45% 1,000 ML IV SCH (22:00)
[2022-09-12] MEDS ORDERED: SODIUM BICARBONATE 8.4 % INJ 50ML VIAL IV ONE (22:00)
[2022-09-12] MEDS ORDERED: CALCIUM GLUC 1,000mg/50ml-NS 50 ML IV ONE (22:00)
[2022-09-12] MEDS: LACTULOSE 20Gm/30ML SOLN PO SCH ×2 (22:21→22:39)
[2022-09-12] MEDS ORDERED: ETOMIDATE (2MG/ML) 20ML VIAL IV ONE ×2 (23:14→23:15)
[2022-09-12] MEDS ORDERED: SUCCINYLCHOLINE CHLORIDE 20 MG/ML 10ML VIAL IV ONE ×2 (23:14→23:15)
[2022-09-12 23:32] VITALS: BP 103/52
[2022-09-12 23:37] VITALS: BP 103/52
[2022-09-12] MEDS ORDERED: MIDAZOLAM DRIP 50 mg/50mL 50 ML IV ONE (23:38)
[2022-09-12] MEDS: MIDAZOLAM DRIP 50 mg/50mL 50 ML IV SCH (23:55)
[2022-09-13] VITALS (98 sets, daily range): BP systolic 74–146; BP diastolic 33–69
[2022-09-13 00:16] LABS: Alcohol, Urine < 3.0 mg/dL (0-10); Amphetamine Screen, Urine NEGATIVE (NEGATIVE); Barbiturate Scree,Urine NEGATIVE (NEGATIVE); Benzodiazephine Screen, Urine NEGATIVE (NEGATIVE); Cannabinoid Screen, Urine NEGATIVE (NEGATIVE); Cocaine Screen, Urine NEGATIVE (NEGATIVE); Opiate Scree,Urine NEGATIVE (NEGATIVE); Phencyclidine Screen, Urine NEGATIVE (NEGATIVE)
[2022-09-13 00:23] LABS: Urine Bacteria NONE SEEN /hpf (None Seen); Urine Blood 3+ /uL (Negative); Urine Mucus FEW (None Seen); Urine Specific Gravity 1.014 (1.001-1.035); Urine WBC 14 /hpf (0 - 5)
[2022-09-13] MEDS: InsuLIN REG 1unit/0.01ml Soln (100units/ml) SC SCH ×3 (01:47→09:02)
[2022-09-13] MEDS: ACCU-CHEK COMFORT CURVE STRIP VI SCH ×11 (01:48→22:38)
[2022-09-13 02:34] LABS: Anion Gap 22 (5-15); BUN/Creatinine Ratio 25.2 (10.0-20.0); Blood Urea Nitrogen 32 mg/dL (7-18); Calcium 7.8 mg/dL (8.5-10.1); Carbon Dioxide 10 mmol/L (21-32); Chloride 113 mmol/L (98-107); GFR African American 55 mL/min; GFR Non-African American 45 mL/min; Glucose 269 mg/dL (74-106); Potassium 4.9 mmol/L (3.5-5.1); Sodium 145 mmol/L (136-145)
[2022-09-13] MEDS: MIDAZOLAM DRIP 50 mg/50mL 50 ML IV SCH ×3 (02:45→17:14)
[2022-09-13] MEDS ORDERED: fentaNYL Drip 2500mCg/250mlNS 250 ML IV ONE (02:58)
[2022-09-13] MEDS: fentaNYL Drip 2500mCg/250mlNS 250 ML IV SCH (03:19)
[2022-09-13 04:25] LABS: Basophils # (auto) 0 10 ^3/uL (0-0.2); Basophils % (auto) 0.2 % (0.0-2.0); Eosinophils # (auto) 0 10 ^3/uL (0-0.8); Hemoglobin 10.9 g/dL (12.2-16.2); Monocytes # (auto) 0.8 10 ^3/uL (0-1.3)
[2022-09-13 04:27] LABS: Hematocrit 36.5 % (36.0-46.0); Lymphocytes # (auto) 1.1 10 ^3/uL (0.4-5.4); Lymphocytes % (auto) 9.4 % (10.0-50.0); Mean Corpuscular Hgb Conc. 29.9 g/dL (32.0-36.0); Mean Corpuscular Volume 93.6 fL (80.0-100.0); Monocytes % (auto) 6.8 % (0.0-12.0); Neutrophils % (auto) 83.6 % (37.0-80.0); Red Blood Cells 3.89 10^6/uL (4.0-5.20); Red Cell Distribution Width 17.5 % (11.8-14.3); White Blood Cell 11.9 10^3/uL (4.4-10.8)
[2022-09-13 04:39] LABS: BUN/Creatinine Ratio 24.2 (10.0-20.0); Calcium 7.8 mg/dL (8.5-10.1); Potassium 4.6 mmol/L (3.5-5.1)
[2022-09-13] MEDS: PHENYLEPHRINE IV 250 ML IV SCH ×5 (05:58→23:32)
[2022-09-13] MEDS: GABAPENTIN 300 MG CAP PO SCH (06:00)
[2022-09-13] MEDS: LEVOTHYROXINE SODIUM 100 MCG TAB PO SCH (09:06)
[2022-09-13] MEDS ORDERED: INSULIN LANTUS (GLARGINE) 1 /0.01ml (100units/ml) SC ONE (10:30)
[2022-09-13] MEDS ORDERED: InsuLIN R (HUMAN) 100 UNITS in SODIUM CHL 0.9% 99 ML IV SCH (10:30)
[2022-09-13] MEDS ORDERED: DEXTROSE (50%) 50ML SYRG IV PRN (10:30)
[2022-09-13] MEDS: BACLOFEN 10 MG TAB PO SCH ×2 (10:35→22:16)
[2022-09-13] MEDS: PANTOPRAZOLE 40 MG/10 ML VIAL INJ IV SCH (10:35)
[2022-09-13] MEDS: LACTULOSE 20Gm/30ML SOLN PO SCH (10:35)
[2022-09-13] MEDS: ENOXAPARIN SOD 40 MG/0.4 ML SYRINGE SC SCH (10:36)
[2022-09-13 11:08] LABS: Magnesium 2.6 mg/dL (1.6-2.6); Phosphorus 4.6 mg/dL (2.5-4.90)
[2022-09-13] MEDS: D5W/SOD CHLO 0.9% 1,000 ML IV SCH ×3 (12:39→22:34)
[2022-09-13 14:21] LABS: INR 0.97 (0.9-1.15)
[2022-09-13] MEDS ORDERED: LIDOCAINE 1% (LOCAL ANESTH.) PF 5ml SDV ID ONE (17:00)
[2022-09-13] MEDS: SODIUM CHLOR 0.9% PF (SALINE LOCK) 10ML VIAL/SYR IV SCH (22:16)
[2022-09-14] VITALS (108 sets, daily range): BP systolic 85–187; BP diastolic 52–111
[2022-09-14] MEDS: ACCU-CHEK COMFORT CURVE STRIP VI SCH ×11 (00:10→23:31)
[2022-09-14] MEDS: fentaNYL Drip 2500mCg/250mlNS 250 ML IV SCH ×2 (03:00→09:19)
[2022-09-14] MEDS: PHENYLEPHRINE IV 250 ML IV SCH (03:38)
[2022-09-14 04:31] LABS: Albumin 2.4 g/dL (3.4-5.0); BUN/Creatinine Ratio 16.8 (10.0-20.0); Bilirubin, Total 0.3 mg/dL (0.2-1.0); Calcium 7.4 mg/dL (8.5-10.1); Total Protein 5.2 g/dL (6.4-8.2)
[2022-09-14 04:44] LABS: Basophils # (auto) 0 10 ^3/uL (0-0.2); Basophils % (auto) 0.2 % (0.0-2.0); Eosinophils # (auto) 0.1 10 ^3/uL (0-0.8); Eosinophils % (auto) 1.1 % (0.0-7.0); Hematocrit 30.8 % (36.0-46.0); Hemoglobin 9.9 g/dL (12.2-16.2); Lymphocytes # (auto) 1.3 10 ^3/uL (0.4-5.4); Lymphocytes % (auto) 16.1 % (10.0-50.0); Mean Corpuscular Hemoglobin 27.8 pg (28.0-32.0); Mean Corpuscular Hgb Conc. 32.1 g/dL (32.0-36.0); Mean Corpuscular Volume 86.5 fL (80.0-100.0); Monocytes # (auto) 0.8 10 ^3/uL (0-1.3); Monocytes % (auto) 9.9 % (0.0-12.0); Neutrophils # (auto) 5.9 10 ^3/uL (1.6-8.6); Neutrophils % (auto) 72.7 % (37.0-80.0); Red Blood Cells 3.56 10^6/uL (4.0-5.20); Red Cell Distribution Width 16.9 % (11.8-14.3); White Blood Cell 8.1 10^3/uL (4.4-10.8)
[2022-09-14] MEDS: LEVOTHYROXINE SODIUM 100 MCG TAB PO SCH (06:30)
[2022-09-14] MEDS: cefTRIAXone 1GM/50ML D5W 50 ML IV SCH (09:05)
[2022-09-14] MEDS: D5W/SOD CHLO 0.9% 1,000 ML IV SCH (09:06)
[2022-09-14] MEDS ORDERED: DEXTROSE (50%) 50ML SYRG IV PRN (09:15)
[2022-09-14] MEDS ORDERED: POTASSIUM EFFERVESENT TAB 25 MEQ PO ONE (09:15)
[2022-09-14] MEDS: NOREPINEPHRINE 8 MG/250ML KIT 250 ML IV SCH (10:01)
[2022-09-14] MEDS: POTASSIUM CHL 20MEQ/100ML 100 ML IV SCH ×4 (10:01→23:03)
[2022-09-14] MEDS: SOD CHL 0.45% 1,000 ML IV SCH ×2 (10:02→20:16)
[2022-09-14] MEDS: ENOXAPARIN SOD 40 MG/0.4 ML SYRINGE SC SCH (10:03)
[2022-09-14] MEDS: PANTOPRAZOLE 40 MG/10 ML VIAL INJ IV SCH (10:10)
[2022-09-14] MEDS: BACLOFEN 10 MG TAB PO SCH ×2 (10:10→21:10)
[2022-09-14] MEDS: SODIUM CHLOR 0.9% PF (SALINE LOCK) 10ML VIAL/SYR IV SCH ×2 (10:28→21:10)
[2022-09-14] MEDS: FREE WATER GT SCH ×4 (10:28→21:10)
[2022-09-14] MEDS: INSULIN LANTUS (GLARGINE) 1 /0.01ml (100units/ml) SC SCH (10:39)
[2022-09-14] MEDS: InsuLIN REG 1unit/0.01ml Soln (100units/ml) SC SCH ×4 (13:08→23:31)
[2022-09-14 15:59] LABS: BUN/Creatinine Ratio 13.4 (10.0-20.0); Calcium 6.2 mg/dL (8.5-10.1); Potassium 3.3 mmol/L (3.5-5.1)
[2022-09-14] MEDS: MIDAZOLAM DRIP 50 mg/50mL 50 ML IV SCH (18:34)
[2022-09-15] VITALS (100 sets, daily range): BP systolic 79–189; BP diastolic 40–90
[2022-09-15] MEDS: FREE WATER GT SCH ×4 (02:02→21:44)
[2022-09-15] MEDS: MIDAZOLAM DRIP 50 mg/50mL 50 ML IV SCH ×3 (02:25→21:58)
[2022-09-15] MEDS: InsuLIN REG 1unit/0.01ml Soln (100units/ml) SC SCH ×4 (03:20→23:39)
[2022-09-15] MEDS: ACCU-CHEK COMFORT CURVE STRIP VI SCH ×5 (03:20→23:37)
[2022-09-15 03:39] LABS: Basophils # (auto) 0 10 ^3/uL (0-0.2); Basophils % (auto) 0.7 % (0.0-2.0); Eosinophils # (auto) 0.1 10 ^3/uL (0-0.8); Eosinophils % (auto) 2.8 % (0.0-7.0); Hematocrit 29.4 % (36.0-46.0); Hemoglobin 9.4 g/dL (12.2-16.2); Lymphocytes # (auto) 1.6 10 ^3/uL (0.4-5.4); Lymphocytes % (auto) 30.3 % (10.0-50.0); Mean Corpuscular Hemoglobin 27.4 pg (28.0-32.0); Mean Corpuscular Hgb Conc. 31.9 g/dL (32.0-36.0); Mean Corpuscular Volume 85.8 fL (80.0-100.0); Monocytes # (auto) 0.4 10 ^3/uL (0-1.3); Monocytes % (auto) 8.3 % (0.0-12.0); Neutrophils # (auto) 3.1 10 ^3/uL (1.6-8.6); Neutrophils % (auto) 57.9 % (37.0-80.0); Red Blood Cells 3.43 10^6/uL (4.0-5.20); Red Cell Distribution Width 16.5 % (11.8-14.3); White Blood Cell 5.3 10^3/uL (4.4-10.8)
[2022-09-15 03:47] LABS: BUN/Creatinine Ratio 12.1 (10.0-20.0); Calcium 7.6 mg/dL (8.5-10.1); Potassium 3.5 mmol/L (3.5-5.1)
[2022-09-15] MEDS: SOD CHL 0.45% 1,000 ML IV SCH ×2 (05:15→06:09)
[2022-09-15] MEDS: LEVOTHYROXINE SODIUM 100 MCG TAB PO SCH (05:50)
[2022-09-15] MEDS: ENOXAPARIN SOD 40 MG/0.4 ML SYRINGE SC SCH (10:27)
[2022-09-15] MEDS: PANTOPRAZOLE 40 MG/10 ML VIAL INJ IV SCH (10:27)
[2022-09-15] MEDS: cefTRIAXone 1GM/50ML D5W 50 ML IV SCH (10:27)
[2022-09-15] MEDS: fentaNYL Drip 2500mCg/250mlNS 250 ML IV SCH (10:31)
[2022-09-15] MEDS: BACLOFEN 10 MG TAB PO SCH ×2 (10:32→21:43)
[2022-09-15] MEDS: SODIUM CHLOR 0.9% PF (SALINE LOCK) 10ML VIAL/SYR IV SCH ×2 (10:32→21:44)
[2022-09-15] MEDS: INSULIN LANTUS (GLARGINE) 1 /0.01ml (100units/ml) SC SCH (10:43)
[2022-09-15] MEDS ORDERED: HYDROCORTISONE SOD SUCC 100 MG/2ML INJ VIAL IV ONE (11:00)
[2022-09-15] MEDS: NOREPINEPHRINE 8 MG/250ML KIT 250 ML IV SCH (20:33)
[2022-09-15] MEDS: HYDROCORTISONE SOD SUCC 100 MG/2ML INJ VIAL IV SCH (21:44)
[2022-09-16] VITALS (101 sets, daily range): BP systolic 31–211; BP diastolic 13–128
[2022-09-16] MEDS: MIDAZOLAM DRIP 50 mg/50mL 50 ML IV SCH ×3 (02:18→21:26)
[2022-09-16] MEDS: FREE WATER GT SCH ×5 (02:20→21:20)
[2022-09-16] MEDS: SOD CHL 0.45% 1,000 ML IV SCH ×3 (02:21→22:53)
[2022-09-16 04:14] LABS: Basophils # (auto) 0 10 ^3/uL (0-0.2); Basophils % (auto) 0.2 % (0.0-2.0); Eosinophils # (auto) 0 10 ^3/uL (0-0.8); Eosinophils % (auto) 0.1 % (0.0-7.0); Hematocrit 32.6 % (36.0-46.0); Hemoglobin 10.5 g/dL (12.2-16.2); Lymphocytes # (auto) 0.3 10 ^3/uL (0.4-5.4); Lymphocytes % (auto) 10.7 % (10.0-50.0); Mean Corpuscular Hemoglobin 27.6 pg (28.0-32.0); Mean Corpuscular Hgb Conc. 32.2 g/dL (32.0-36.0); Mean Corpuscular Volume 85.6 fL (80.0-100.0); Monocytes # (auto) 0.1 10 ^3/uL (0-1.3); Monocytes % (auto) 2.2 % (0.0-12.0); Neutrophils # (auto) 2.7 10 ^3/uL (1.6-8.6); Neutrophils % (auto) 86.8 % (37.0-80.0); Nucleated Red Blood Cells % 0.1 %; Red Blood Cells 3.81 10^6/uL (4.0-5.20); Red Cell Distribution Width 16.6 % (11.8-14.3); White Blood Cell 3.1 10^3/uL (4.4-10.8)
[2022-09-16 04:27] LABS: Potassium 3.8 mmol/L (3.5-5.1)
[2022-09-16 04:30] LABS: BUN/Creatinine Ratio 11.8 (10.0-20.0); Calcium 7.9 mg/dL (8.5-10.1); Magnesium 1.9 mg/dL (1.6-2.6)
[2022-09-16] MEDS: ACCU-CHEK COMFORT CURVE STRIP VI SCH ×3 (05:48→23:47)
[2022-09-16] MEDS: InsuLIN REG 1unit/0.01ml Soln (100units/ml) SC SCH ×2 (05:54→12:45)
[2022-09-16] MEDS: LEVOTHYROXINE SODIUM 100 MCG TAB PO SCH (05:55)
[2022-09-16] MEDS: HYDROCORTISONE SOD SUCC 100 MG/2ML INJ VIAL IV SCH ×3 (05:55→21:18)
[2022-09-16] MEDS: fentaNYL Drip 2500mCg/250mlNS 250 ML IV SCH (07:25)
[2022-09-16] MEDS: cefTRIAXone 1GM/50ML D5W 50 ML IV SCH (08:26)
[2022-09-16] MEDS: NOREPINEPHRINE 8 MG/250ML KIT 250 ML IV SCH (09:15)
[2022-09-16] MEDS: PANTOPRAZOLE 40 MG/10 ML VIAL INJ IV SCH (10:11)
[2022-09-16] MEDS: BACLOFEN 10 MG TAB PO SCH ×2 (10:11→21:19)
[2022-09-16] MEDS: SODIUM CHLOR 0.9% PF (SALINE LOCK) 10ML VIAL/SYR IV SCH ×2 (10:11→21:19)
[2022-09-16] MEDS: INSULIN LANTUS (GLARGINE) 1 /0.01ml (100units/ml) SC SCH (10:12)
[2022-09-16] MEDS: ENOXAPARIN SOD 40 MG/0.4 ML SYRINGE SC SCH (10:12)
[2022-09-16] MEDS ORDERED: Glucerna 1.2 Cal 1Liter BOTTLE GT SCH (12:45)
[2022-09-16] MEDS ORDERED: PROPOFOL 100 ML IV SCH (13:00)
[2022-09-16] MEDS ORDERED: PROPOFOL 100 ML IV ONE (13:06)
[2022-09-16] MEDS: PROPOFOL 100 ML IV SCH (19:45)
[2022-09-17] VITALS (107 sets, daily range): BP systolic 78–205; BP diastolic 36–114
[2022-09-17] MEDS: InsuLIN REG 1unit/0.01ml Soln (100units/ml) SC SCH ×5 (00:01→23:47)
[2022-09-17] MEDS: fentaNYL Drip 2500mCg/250mlNS 250 ML IV SCH (00:02)
[2022-09-17] MEDS: PROPOFOL 100 ML IV SCH ×3 (01:24→23:48)
[2022-09-17] MEDS: FREE WATER GT SCH ×6 (04:17→21:20)
[2022-09-17 04:37] LABS: Basophils # (auto) 0 10 ^3/uL (0-0.2); Basophils % (auto) 0.1 % (0.0-2.0); Eosinophils # (auto) 0 10 ^3/uL (0-0.8); Eosinophils % (auto) 0.1 % (0.0-7.0); Hematocrit 33.6 % (36.0-46.0); Hemoglobin 10.7 g/dL (12.2-16.2); Lymphocytes # (auto) 0.6 10 ^3/uL (0.4-5.4); Lymphocytes % (auto) 10.6 % (10.0-50.0); Mean Corpuscular Hemoglobin 27.9 pg (28.0-32.0); Mean Corpuscular Volume 87.1 fL (80.0-100.0); Monocytes # (auto) 0.3 10 ^3/uL (0-1.3); Monocytes % (auto) 5.3 % (0.0-12.0); Neutrophils # (auto) 4.8 10 ^3/uL (1.6-8.6); Neutrophils % (auto) 83.9 % (37.0-80.0); Nucleated Red Blood Cells % 0.1 %; Red Blood Cells 3.86 10^6/uL (4.0-5.20); Red Cell Distribution Width 16.9 % (11.8-14.3); White Blood Cell 5.7 10^3/uL (4.4-10.8)
[2022-09-17 04:44] LABS: Calcium 7.8 mg/dL (8.5-10.1); Potassium 3.9 mmol/L (3.5-5.1)
[2022-09-17 04:48] LABS: BUN/Creatinine Ratio 14.1 (10.0-20.0); Bilirubin, Total 0.2 mg/dL (0.2-1.0)
[2022-09-17] MEDS: ACCU-CHEK COMFORT CURVE STRIP VI SCH ×4 (05:34→23:43)
[2022-09-17] MEDS: LEVOTHYROXINE SODIUM 100 MCG TAB PO SCH (05:38)
[2022-09-17] MEDS: MIDAZOLAM DRIP 50 mg/50mL 50 ML IV SCH (06:16)
[2022-09-17] MEDS: HYDROCORTISONE SOD SUCC 100 MG/2ML INJ VIAL IV SCH (06:51)
[2022-09-17] MEDS: cefTRIAXone 1GM/50ML D5W 50 ML IV SCH (08:57)
[2022-09-17] MEDS ORDERED: FUROSEMIDE 20 MG/2 ML VIAL IV ONE (09:00)
[2022-09-17] MEDS: NOREPINEPHRINE 8 MG/250ML KIT 250 ML IV SCH (09:15)
[2022-09-17] MEDS: PANTOPRAZOLE 40 MG/10 ML VIAL INJ IV SCH (09:29)
[2022-09-17] MEDS: ENOXAPARIN SOD 40 MG/0.4 ML SYRINGE SC SCH (09:30)
[2022-09-17] MEDS: BACLOFEN 10 MG TAB PO SCH ×2 (09:30→21:20)
[2022-09-17] MEDS: INSULIN LANTUS (GLARGINE) 1 /0.01ml (100units/ml) SC SCH (09:34)
[2022-09-17] MEDS: SODIUM CHLOR 0.9% PF (SALINE LOCK) 10ML VIAL/SYR IV SCH ×2 (09:35→21:19)
[2022-09-18] VITALS (105 sets, daily range): BP systolic 99–174; BP diastolic 44–123
[2022-09-18] MEDS: FREE WATER GT SCH ×6 (02:30→22:24)
[2022-09-18] MEDS: fentaNYL Drip 2500mCg/250mlNS 250 ML IV SCH ×2 (02:34→20:42)
[2022-09-18 04:27] LABS: Basophils # (auto) 0 10 ^3/uL (0-0.2); Basophils % (auto) 0.4 % (0.0-2.0); Eosinophils # (auto) 0 10 ^3/uL (0-0.8); Eosinophils % (auto) 0.7 % (0.0-7.0); Hematocrit 30.8 % (36.0-46.0); Hemoglobin 10.2 g/dL (12.2-16.2); Lymphocytes # (auto) 1.5 10 ^3/uL (0.4-5.4); Lymphocytes % (auto) 31.1 % (10.0-50.0); Mean Corpuscular Hemoglobin 28.1 pg (28.0-32.0); Mean Corpuscular Volume 84.9 fL (80.0-100.0); Monocytes # (auto) 0.5 10 ^3/uL (0-1.3); Monocytes % (auto) 9.2 % (0.0-12.0); Neutrophils # (auto) 2.9 10 ^3/uL (1.6-8.6); Neutrophils % (auto) 58.6 % (37.0-80.0); Nucleated Red Blood Cells % 0.1 %; Red Blood Cells 3.63 10^6/uL (4.0-5.20); Red Cell Distribution Width 16.4 % (11.8-14.3); White Blood Cell 4.9 10^3/uL (4.4-10.8)
[2022-09-18] MEDS: PROPOFOL 100 ML IV SCH ×4 (04:32→23:33)
[2022-09-18 04:36] LABS: Albumin 1.9 g/dL (3.4-5.0); BUN/Creatinine Ratio 11.9 (10.0-20.0); Calcium 7.8 mg/dL (8.5-10.1)
[2022-09-18 04:39] LABS: Bilirubin, Total 0.2 mg/dL (0.2-1.0); Total Protein 4.8 g/dL (6.4-8.2)
[2022-09-18 05:14] LABS: Potassium 2.6 mmol/L (3.5-5.1)
[2022-09-18] MEDS: ACCU-CHEK COMFORT CURVE STRIP VI SCH ×3 (05:28→17:11)
[2022-09-18] MEDS: LEVOTHYROXINE SODIUM 100 MCG TAB PO SCH (05:28)
[2022-09-18] MEDS: InsuLIN REG 1unit/0.01ml Soln (100units/ml) SC SCH ×3 (05:45→17:16)
[2022-09-18] MEDS: POTASSIUM CHL 20MEQ/100ML 100 ML IV SCH ×2 (06:09→08:12)
[2022-09-18] MEDS: ACETAMINOPHEN 325 MG TAB PO PRN (08:11)
[2022-09-18] MEDS: NOREPINEPHRINE 8 MG/250ML KIT 250 ML IV SCH (09:15)
[2022-09-18] MEDS: cefTRIAXone 1GM/50ML D5W 50 ML IV SCH (09:15)
[2022-09-18] MEDS: BACLOFEN 10 MG TAB PO SCH ×2 (10:12→23:36)
[2022-09-18] MEDS: PANTOPRAZOLE 40 MG/10 ML VIAL INJ IV SCH (10:13)
[2022-09-18] MEDS: SODIUM CHLOR 0.9% PF (SALINE LOCK) 10ML VIAL/SYR IV SCH ×2 (10:13→22:24)
[2022-09-18] MEDS ORDERED: POTASSIUM EFFERVESENT TAB 25 MEQ PO ONE (10:15)
[2022-09-18] MEDS ORDERED: MAGNESIUM SULFATE 1GM/100ML 100 ML IV ONE (10:15)
[2022-09-18] MEDS: INSULIN LANTUS (GLARGINE) 1 /0.01ml (100units/ml) SC SCH (10:19)
[2022-09-18] MEDS: ENOXAPARIN SOD 40 MG/0.4 ML SYRINGE SC SCH (10:20)
[2022-09-18] MEDS: methylPREDNISolone SOD SUCC 40 MG/ML VL IV SCH ×2 (10:38→22:28)
[2022-09-18] MEDS: DOXYCYCLINE 100 MG TAB/CAP PO SCH ×2 (10:38→22:28)
[2022-09-18] MEDS: PIPERACILLIN-TAZOB 3.375GM 100 ML IV SCH ×2 (14:01→22:28)
[2022-09-18 20:27] LABS: Magnesium 2.1 mg/dL (1.6-2.6); Potassium 3.5 mmol/L (3.5-5.1)
[2022-09-19] VITALS (86 sets, daily range): BP systolic 105–185; BP diastolic 59–114
[2022-09-19] MEDS: ACCU-CHEK COMFORT CURVE STRIP VI SCH ×5 (00:15→23:37)
[2022-09-19] MEDS: InsuLIN REG 1unit/0.01ml Soln (100units/ml) SC SCH ×5 (00:17→23:38)
[2022-09-19] MEDS: FREE WATER GT SCH ×6 (01:30→22:09)
[2022-09-19] MEDS: PROPOFOL 100 ML IV SCH ×3 (04:50→20:27)
[2022-09-19] MEDS: PIPERACILLIN-TAZOB 3.375GM 100 ML IV SCH ×3 (05:39→22:12)
[2022-09-19] MEDS: LEVOTHYROXINE SODIUM 100 MCG TAB PO SCH (05:55)
[2022-09-19 05:56] LABS: Basophils # (auto) 0 10 ^3/uL (0-0.2); Basophils % (auto) 0.1 % (0.0-2.0); Eosinophils # (auto) 0 10 ^3/uL (0-0.8); Hematocrit 32.6 % (36.0-46.0); Hemoglobin 10.8 g/dL (12.2-16.2); Lymphocytes # (auto) 0.7 10 ^3/uL (0.4-5.4); Lymphocytes % (auto) 13.6 % (10.0-50.0); Mean Corpuscular Hemoglobin 27.8 pg (28.0-32.0); Mean Corpuscular Hgb Conc. 33.1 g/dL (32.0-36.0); Mean Corpuscular Volume 84.1 fL (80.0-100.0); Monocytes # (auto) 0.3 10 ^3/uL (0-1.3); Monocytes % (auto) 5.6 % (0.0-12.0); Neutrophils # (auto) 4.4 10 ^3/uL (1.6-8.6); Neutrophils % (auto) 80.7 % (37.0-80.0); Red Blood Cells 3.88 10^6/uL (4.0-5.20); Red Cell Distribution Width 16.3 % (11.8-14.3); White Blood Cell 5.5 10^3/uL (4.4-10.8)
[2022-09-19 06:10] LABS: Potassium 3.4 mmol/L (3.5-5.1)
[2022-09-19 06:28] LABS: Albumin 2.6 g/dL (3.4-5.0); BUN/Creatinine Ratio 10.9 (10.0-20.0); Bilirubin, Total 0.4 mg/dL (0.2-1.0); Phosphorus 2.4 mg/dL (2.5-4.90); Total Protein 5.7 g/dL (6.4-8.2)
[2022-09-19] MEDS: NOREPINEPHRINE 8 MG/250ML KIT 250 ML IV SCH (09:15)
[2022-09-19] MEDS: PANTOPRAZOLE 40 MG/10 ML VIAL INJ IV SCH (09:22)
[2022-09-19] MEDS: DOXYCYCLINE 100 MG TAB/CAP PO SCH ×2 (09:22→22:14)
[2022-09-19] MEDS: BACLOFEN 10 MG TAB PO SCH ×2 (09:22→22:14)
[2022-09-19] MEDS: methylPREDNISolone SOD SUCC 40 MG/ML VL IV SCH ×2 (09:23→22:10)
[2022-09-19] MEDS: SODIUM CHLOR 0.9% PF (SALINE LOCK) 10ML VIAL/SYR IV SCH ×2 (09:23→22:10)
[2022-09-19] MEDS: ENOXAPARIN SOD 40 MG/0.4 ML SYRINGE SC SCH (09:24)
[2022-09-19] MEDS: FUROSEMIDE 20 MG/2 ML VIAL IV SCH (09:26)
[2022-09-19] MEDS: POTASSIUM CHL 20MEQ/100ML 100 ML IV SCH ×2 (09:27→11:21)
[2022-09-19] MEDS: INSULIN LANTUS (GLARGINE) 1 /0.01ml (100units/ml) SC SCH (09:33)
[2022-09-19] MEDS: hydrALAZINE HCL 20 MG/ML VL IV PRN ×2 (11:21→22:21)
[2022-09-20] VITALS (100 sets, daily range): BP systolic 114–172; BP diastolic 61–102
[2022-09-20] MEDS: PROPOFOL 100 ML IV SCH ×2 (01:59→06:11)
[2022-09-20] MEDS: FREE WATER GT SCH ×6 (02:00→21:54)
[2022-09-20] MEDS: ACCU-CHEK COMFORT CURVE STRIP VI SCH ×4 (05:25→23:53)
[2022-09-20] MEDS: PIPERACILLIN-TAZOB 3.375GM 100 ML IV SCH ×3 (05:26→21:53)
[2022-09-20] MEDS: InsuLIN REG 1unit/0.01ml Soln (100units/ml) SC SCH ×4 (05:26→23:56)
[2022-09-20] MEDS: fentaNYL Drip 2500mCg/250mlNS 250 ML IV SCH (05:32)
[2022-09-20 05:53] LABS: BUN/Creatinine Ratio 13.3 (10.0-20.0); Basophils # (auto) 0 10 ^3/uL (0-0.2); Basophils % (auto) 0.1 % (0.0-2.0); Calcium 8.7 mg/dL (8.5-10.1); Eosinophils # (auto) 0 10 ^3/uL (0-0.8); Eosinophils % (auto) 0.1 % (0.0-7.0); Hematocrit 35.2 % (36.0-46.0); Hemoglobin 11.4 g/dL (12.2-16.2); Lymphocytes # (auto) 0.9 10 ^3/uL (0.4-5.4); Lymphocytes % (auto) 12.7 % (10.0-50.0); Mean Corpuscular Hemoglobin 27.4 pg (28.0-32.0); Mean Corpuscular Hgb Conc. 32.5 g/dL (32.0-36.0); Mean Corpuscular Volume 84.2 fL (80.0-100.0); Monocytes # (auto) 0.4 10 ^3/uL (0-1.3); Monocytes % (auto) 5.2 % (0.0-12.0); Neutrophils # (auto) 5.7 10 ^3/uL (1.6-8.6); Neutrophils % (auto) 81.9 % (37.0-80.0); Nucleated Red Blood Cells % 0.1 %; Potassium 3.4 mmol/L (3.5-5.1); Red Blood Cells 4.18 10^6/uL (4.0-5.20); Red Cell Distribution Width 17.2 % (11.8-14.3)
[2022-09-20] MEDS: LEVOTHYROXINE SODIUM 100 MCG TAB PO SCH (06:22)
[2022-09-20] MEDS ORDERED: POTASSIUM CHL 20MEQ/100ML 100 ML IV ONE ×2 (06:45→08:45)
[2022-09-20] MEDS ORDERED: FUROSEMIDE 20 MG/2 ML VIAL IV ONE (08:45)
[2022-09-20] MEDS: DOXYCYCLINE 100 MG TAB/CAP PO SCH ×2 (08:49→21:54)
[2022-09-20] MEDS: BACLOFEN 10 MG TAB PO SCH ×2 (08:49→21:54)
[2022-09-20] MEDS: PANTOPRAZOLE 40 MG/10 ML VIAL INJ IV SCH (08:50)
[2022-09-20] MEDS: SODIUM CHLOR 0.9% PF (SALINE LOCK) 10ML VIAL/SYR IV SCH ×2 (08:50→21:53)
[2022-09-20] MEDS: FUROSEMIDE 20 MG/2 ML VIAL IV SCH (08:54)
[2022-09-20] MEDS: hydrALAZINE HCL 20 MG/ML VL IV PRN ×2 (08:54→17:43)
[2022-09-20] MEDS: ENOXAPARIN SOD 40 MG/0.4 ML SYRINGE SC SCH (08:55)
[2022-09-20] MEDS: INSULIN LANTUS (GLARGINE) 1 /0.01ml (100units/ml) SC SCH (09:15)
[2022-09-20] MEDS: NOREPINEPHRINE 8 MG/250ML KIT 250 ML IV SCH (09:15)
[2022-09-20] MEDS ORDERED: methylPREDNISolone SOD SUCC 40 MG/ML VL IV SCH (10:00)
[2022-09-20] MEDS ORDERED: HALOPERIDOL LACTATE 5 MG/ML INJ VIAL IM PRN (21:30)
[2022-09-21] VITALS (49 sets, daily range): BP systolic 92–169; BP diastolic 51–102
[2022-09-21] MEDS: ACETAMINOPHEN 325 MG TAB PO PRN (01:30)
[2022-09-21] MEDS: FREE WATER GT SCH ×2 (01:46→05:32)
[2022-09-21] MEDS: fentaNYL Drip 2500mCg/250mlNS 250 ML IV SCH (02:37)
[2022-09-21 03:51] LABS: Basophils # (auto) 0.1 10 ^3/uL (0-0.2); Basophils % (auto) 0.9 % (0.0-2.0); Eosinophils # (auto) 0.1 10 ^3/uL (0-0.8); Hematocrit 39.9 % (36.0-46.0); Hemoglobin 12.9 g/dL (12.2-16.2); Lymphocytes # (auto) 1.7 10 ^3/uL (0.4-5.4); Lymphocytes % (auto) 25.2 % (10.0-50.0); Mean Corpuscular Hemoglobin 27.5 pg (28.0-32.0); Mean Corpuscular Hgb Conc. 32.5 g/dL (32.0-36.0); Mean Corpuscular Volume 84.7 fL (80.0-100.0); Monocytes % (auto) 14.6 % (0.0-12.0); Neutrophils % (auto) 58.3 % (37.0-80.0); Red Blood Cells 4.71 10^6/uL (4.0-5.20); Red Cell Distribution Width 17.1 % (11.8-14.3); White Blood Cell 6.9 10^3/uL (4.4-10.8)
[2022-09-21] MEDS: PIPERACILLIN-TAZOB 3.375GM 100 ML IV SCH (05:32)
[2022-09-21] MEDS: ACCU-CHEK COMFORT CURVE STRIP VI SCH ×3 (05:32→17:38)
[2022-09-21] MEDS: InsuLIN REG 1unit/0.01ml Soln (100units/ml) SC SCH ×3 (05:38→17:40)
[2022-09-21] MEDS: hydrALAZINE HCL 20 MG/ML VL IV PRN (06:06)
[2022-09-21] MEDS: LEVOTHYROXINE SODIUM 100 MCG TAB PO SCH (06:46)
[2022-09-21] MEDS: POTASSIUM CHL 20MEQ/100ML 100 ML IV SCH ×2 (07:31→08:58)
[2022-09-21] MEDS: ENOXAPARIN SOD 40 MG/0.4 ML SYRINGE SC SCH (08:56)
[2022-09-21] MEDS: amLODIPine BESYLATE 5 MG TAB PO SCH (08:56)
[2022-09-21] MEDS: HYDROcodone-ACET 5/325MG TAB PO PRN (08:56)
[2022-09-21] MEDS: PANTOPRAZOLE 40 MG/10 ML VIAL INJ IV SCH (08:56)
[2022-09-21] MEDS: DOXYCYCLINE 100 MG TAB/CAP PO SCH ×2 (08:57→21:39)
[2022-09-21] MEDS: FUROSEMIDE 20 MG/2 ML VIAL IV SCH (08:57)
[2022-09-21] MEDS: SODIUM CHLOR 0.9% PF (SALINE LOCK) 10ML VIAL/SYR IV SCH ×2 (08:58→21:39)
[2022-09-21] MEDS: INSULIN LANTUS (GLARGINE) 1 /0.01ml (100units/ml) SC SCH (09:22)
[2022-09-21] MEDS: BACLOFEN 10 MG TAB PO SCH ×2 (09:39→21:40)
[2022-09-22] MEDS: ACCU-CHEK COMFORT CURVE STRIP VI SCH ×4 (00:08→18:00)
[2022-09-22] MEDS: InsuLIN REG 1unit/0.01ml Soln (100units/ml) SC SCH ×4 (00:09→18:00)
[2022-09-22 05:13] VITALS: BP 122/72
[2022-09-22 06:26] LABS: Potassium 3.1 mmol/L (3.5-5.1)
[2022-09-22 06:30] LABS: BUN/Creatinine Ratio 18.1 (10.0-20.0); Calcium 8.8 mg/dL (8.5-10.1)
[2022-09-22] MEDS: LEVOTHYROXINE SODIUM 100 MCG TAB PO SCH (06:31)
[2022-09-22] MEDS: EMPAGLIFLOZIN 10 MG TAB PO SCH (06:32)
[2022-09-22 06:47] LABS: Basophils # (auto) 0.1 10 ^3/uL (0-0.2); Basophils % (auto) 0.7 % (0.0-2.0); Eosinophils # (auto) 0.2 10 ^3/uL (0-0.8); Eosinophils % (auto) 2.3 % (0.0-7.0); Hematocrit 43.5 % (36.0-46.0); Hemoglobin 13.9 g/dL (12.2-16.2); Lymphocytes # (auto) 2.2 10 ^3/uL (0.4-5.4); Lymphocytes % (auto) 28.2 % (10.0-50.0); Mean Corpuscular Hemoglobin 27.4 pg (28.0-32.0); Mean Corpuscular Volume 85.7 fL (80.0-100.0); Monocytes # (auto) 0.9 10 ^3/uL (0-1.3); Monocytes % (auto) 12.2 % (0.0-12.0); Neutrophils # (auto) 4.4 10 ^3/uL (1.6-8.6); Neutrophils % (auto) 56.6 % (37.0-80.0); Red Blood Cells 5.08 10^6/uL (4.0-5.20); Red Cell Distribution Width 17.1 % (11.8-14.3); White Blood Cell 7.7 10^3/uL (4.4-10.8)
[2022-09-22 09:00] VITALS: BP 106/78
[2022-09-22] MEDS: DOXYCYCLINE 100 MG TAB/CAP PO SCH (10:00)
[2022-09-22] MEDS: FUROSEMIDE 20 MG/2 ML VIAL IV SCH (10:00)
[2022-09-22] MEDS: PANTOPRAZOLE 40 MG/10 ML VIAL INJ IV SCH (10:00)
[2022-09-22] MEDS: SODIUM CHLOR 0.9% PF (SALINE LOCK) 10ML VIAL/SYR IV SCH ×2 (10:00→21:32)
[2022-09-22] MEDS: ENOXAPARIN SOD 40 MG/0.4 ML SYRINGE SC SCH (10:00)
[2022-09-22] MEDS: amLODIPine BESYLATE 5 MG TAB PO SCH (10:01)
[2022-09-22] MEDS: BACLOFEN 10 MG TAB PO SCH ×2 (10:05→21:31)
[2022-09-22] MEDS: INSULIN LANTUS (GLARGINE) 1 /0.01ml (100units/ml) SC SCH (10:09)
[2022-09-22] MEDS ORDERED: POTASSIUM EFFERVESENT TAB 25 MEQ PO ONE (10:15)
[2022-09-22 13:00] VITALS: BP 99/64
[2022-09-22 17:00] VITALS: BP 117/68
[2022-09-22 22:00] VITALS: BP 121/77
[2022-09-23] MEDS: InsuLIN REG 1unit/0.01ml Soln (100units/ml) SC SCH ×5 (01:01→22:39)
[2022-09-23 05:00] VITALS: BP 120/73
[2022-09-23] MEDS: ACCU-CHEK COMFORT CURVE STRIP VI SCH ×4 (06:10→17:52)
[2022-09-23 06:31] LABS: Potassium 3.2 mmol/L (3.5-5.1)
[2022-09-23 06:46] LABS: BUN/Creatinine Ratio 21.3 (10.0-20.0); Calcium 9.1 mg/dL (8.5-10.1); Magnesium 2.2 mg/dL (1.6-2.6)
[2022-09-23 07:08] LABS: Basophils # (auto) 0.1 10 ^3/uL (0-0.2); Eosinophils # (auto) 0.1 10 ^3/uL (0-0.8); Hemoglobin 13.7 g/dL (12.2-16.2); Lymphocytes # (auto) 2.3 10 ^3/uL (0.4-5.4); Monocytes # (auto) 0.8 10 ^3/uL (0-1.3); Neutrophils # (auto) 4.2 10 ^3/uL (1.6-8.6); Neutrophils % (auto) 56.7 % (37.0-80.0)
[2022-09-23] MEDS: LEVOTHYROXINE SODIUM 100 MCG TAB PO SCH (07:11)
[2022-09-23] MEDS: EMPAGLIFLOZIN 10 MG TAB PO SCH (07:11)
[2022-09-23 07:14] LABS: Basophils % (auto) 0.8 % (0.0-2.0); Eosinophils % (auto) 1.8 % (0.0-7.0); Hematocrit 42.9 % (36.0-46.0); Mean Corpuscular Hemoglobin 27.1 pg (28.0-32.0); Mean Corpuscular Hgb Conc. 31.9 g/dL (32.0-36.0); Mean Corpuscular Volume 84.8 fL (80.0-100.0); Monocytes % (auto) 10.7 % (0.0-12.0); Nucleated Red Blood Cells % 0.1 %; Red Blood Cells 5.06 10^6/uL (4.0-5.20); Red Cell Distribution Width 16.9 % (11.8-14.3); White Blood Cell 7.5 10^3/uL (4.4-10.8)
[2022-09-23] MEDS: ENOXAPARIN SOD 40 MG/0.4 ML SYRINGE SC SCH (09:22)
[2022-09-23] MEDS: PANTOPRAZOLE 40 MG/10 ML VIAL INJ IV SCH (09:22)
[2022-09-23] MEDS: SODIUM CHLOR 0.9% PF (SALINE LOCK) 10ML VIAL/SYR IV SCH ×2 (09:23→22:52)
[2022-09-23] MEDS: FUROSEMIDE 20 MG/2 ML VIAL IV SCH (09:23)
[2022-09-23] MEDS: BACLOFEN 10 MG TAB PO SCH ×2 (09:23→22:43)
[2022-09-23] MEDS: amLODIPine BESYLATE 5 MG TAB PO SCH (09:23)
[2022-09-23 09:28] VITALS: BP 121/83
[2022-09-23] MEDS: INSULIN LANTUS (GLARGINE) 1 /0.01ml (100units/ml) SC SCH (09:34)
[2022-09-23] MEDS ORDERED: DIPHENOXYLATE W/ATROPINE 2.5 MG TAB PO PRN (11:30)
[2022-09-23] MEDS: POTASSIUM EFFERVESENT TAB 25 MEQ PO SCH (12:02)
[2022-09-23 12:30] VITALS: BP 96/65
[2022-09-23 17:00] VITALS: BP 123/81
[2022-09-23 22:00] VITALS: BP 130/74
[2022-09-24] MEDS: ACCU-CHEK COMFORT CURVE STRIP VI SCH ×4 (03:19→17:48)
[2022-09-24 05:00] VITALS: BP 110/68
[2022-09-24] MEDS: EMPAGLIFLOZIN 10 MG TAB PO SCH (06:34)
[2022-09-24] MEDS: LEVOTHYROXINE SODIUM 100 MCG TAB PO SCH (06:34)
[2022-09-24] MEDS: InsuLIN REG 1unit/0.01ml Soln (100units/ml) SC SCH ×4 (07:05→22:14)
[2022-09-24 09:00] VITALS: BP 116/67
[2022-09-24] MEDS ORDERED: INSULIN LANTUS (GLARGINE) 1 /0.01ml (100units/ml) SC SCH (10:00)
[2022-09-24] MEDS: POTASSIUM EFFERVESENT TAB 25 MEQ PO SCH (10:19)
[2022-09-24] MEDS: FUROSEMIDE 20 MG/2 ML VIAL IV SCH (10:19)
[2022-09-24] MEDS: SODIUM CHLOR 0.9% PF (SALINE LOCK) 10ML VIAL/SYR IV SCH ×2 (10:19→23:41)
[2022-09-24] MEDS: PANTOPRAZOLE 40 MG/10 ML VIAL INJ IV SCH (10:19)
[2022-09-24] MEDS: amLODIPine BESYLATE 5 MG TAB PO SCH (10:20)
[2022-09-24] MEDS: ENOXAPARIN SOD 40 MG/0.4 ML SYRINGE SC SCH (10:20)
[2022-09-24] MEDS ORDERED: POTASSIUM EFFERVESENT TAB 25 MEQ PO ONE (11:45)
[2022-09-24] MEDS: BACLOFEN 10 MG TAB PO SCH ×2 (12:28→22:17)
[2022-09-24 12:30] VITALS: BP 113/63
[2022-09-24 16:51] VITALS: BP 99/72
[2022-09-24] MEDS: HYDROcodone-ACET 5/325MG TAB PO PRN (20:24)
[2022-09-25] MEDS: InsuLIN REG 1unit/0.01ml Soln (100units/ml) SC SCH ×3 (06:33→18:11)
[2022-09-25] MEDS: LEVOTHYROXINE SODIUM 100 MCG TAB PO SCH (06:36)
[2022-09-25] MEDS: EMPAGLIFLOZIN 10 MG TAB PO SCH (06:36)
[2022-09-25] MEDS: ACCU-CHEK COMFORT CURVE STRIP VI SCH ×4 (06:39→17:27)
[2022-09-25 09:00] VITALS: BP 146/96
[2022-09-25] MEDS: POTASSIUM EFFERVESENT TAB 25 MEQ PO SCH (10:23)
[2022-09-25] MEDS: SODIUM CHLOR 0.9% PF (SALINE LOCK) 10ML VIAL/SYR IV SCH ×2 (10:24→21:59)
[2022-09-25] MEDS: ENOXAPARIN SOD 40 MG/0.4 ML SYRINGE SC SCH (10:24)
[2022-09-25] MEDS: amLODIPine BESYLATE 5 MG TAB PO SCH (10:24)
[2022-09-25] MEDS: FUROSEMIDE 20 MG/2 ML VIAL IV SCH (10:24)
[2022-09-25] MEDS: PANTOPRAZOLE 40 MG/10 ML VIAL INJ IV SCH (10:25)
[2022-09-25] MEDS: HYDROcodone-ACET 5/325MG TAB PO PRN ×2 (10:28→20:19)
[2022-09-25] MEDS: BACLOFEN 10 MG TAB PO SCH ×2 (10:29→21:57)
[2022-09-25] MEDS: INSULIN LANTUS (GLARGINE) 1 /0.01ml (100units/ml) SC SCH (10:36)
[2022-09-25 13:00] VITALS: BP 115/84
[2022-09-25 17:00] VITALS: BP 121/69
[2022-09-25] MEDS: QUEtiapine FUMARATE 25 MG TAB PO SCH (21:57)
[2022-09-25 22:00] VITALS: BP 117/71
[2022-09-26] MEDS: InsuLIN REG 1unit/0.01ml Soln (100units/ml) SC SCH ×5 (00:21→23:54)
[2022-09-26] MEDS: ACCU-CHEK COMFORT CURVE STRIP VI SCH ×5 (00:21→23:54)
[2022-09-26 05:00] VITALS: BP 116/69
[2022-09-26] MEDS: EMPAGLIFLOZIN 10 MG TAB PO SCH (06:33)
[2022-09-26] MEDS: HYDROcodone-ACET 5/325MG TAB PO PRN ×2 (06:33→17:39)
[2022-09-26] MEDS: LEVOTHYROXINE SODIUM 100 MCG TAB PO SCH (06:33)
[2022-09-26 06:45] LABS: BUN/Creatinine Ratio 15.4 (10.0-20.0); Calcium 9.3 mg/dL (8.5-10.1)
[2022-09-26 09:00] VITALS: BP 112/76
[2022-09-26] MEDS: POTASSIUM EFFERVESENT TAB 25 MEQ PO SCH (09:57)
[2022-09-26] MEDS: PANTOPRAZOLE 40 MG/10 ML VIAL INJ IV SCH (09:57)
[2022-09-26] MEDS: amLODIPine BESYLATE 5 MG TAB PO SCH (09:57)
[2022-09-26] MEDS: SODIUM CHLOR 0.9% PF (SALINE LOCK) 10ML VIAL/SYR IV SCH ×2 (09:57→21:24)
[2022-09-26] MEDS: QUEtiapine FUMARATE 25 MG TAB PO SCH ×2 (09:57→21:24)
[2022-09-26] MEDS: BACLOFEN 10 MG TAB PO SCH ×2 (09:57→21:24)
[2022-09-26] MEDS: FUROSEMIDE 20 MG/2 ML VIAL IV SCH (09:58)
[2022-09-26] MEDS: INSULIN LANTUS (GLARGINE) 1 /0.01ml (100units/ml) SC SCH (10:00)
[2022-09-26] MEDS: ENOXAPARIN SOD 40 MG/0.4 ML SYRINGE SC SCH (10:01)
[2022-09-26 13:00] VITALS: BP 108/71
[2022-09-26 22:00] VITALS: BP 104/65
[2022-09-27] MEDS: HYDROcodone-ACET 5/325MG TAB PO PRN ×2 (02:49→20:08)
[2022-09-27] MEDS: InsuLIN REG 1unit/0.01ml Soln (100units/ml) SC SCH ×3 (05:45→18:00)
[2022-09-27] MEDS: ACCU-CHEK COMFORT CURVE STRIP VI SCH ×3 (05:45→18:16)
[2022-09-27] MEDS: LEVOTHYROXINE SODIUM 100 MCG TAB PO SCH (06:21)
[2022-09-27] MEDS: EMPAGLIFLOZIN 10 MG TAB PO SCH (06:21)
[2022-09-27 09:00] VITALS: BP 122/67
[2022-09-27] MEDS: SODIUM CHLOR 0.9% PF (SALINE LOCK) 10ML VIAL/SYR IV SCH ×2 (10:00→21:47)
[2022-09-27] MEDS: ENOXAPARIN SOD 40 MG/0.4 ML SYRINGE SC SCH (10:02)
[2022-09-27] MEDS: PANTOPRAZOLE 40 MG/10 ML VIAL INJ IV SCH (10:02)
[2022-09-27] MEDS: POTASSIUM EFFERVESENT TAB 25 MEQ PO SCH (10:02)
[2022-09-27] MEDS: BACLOFEN 10 MG TAB PO SCH ×2 (10:02→21:42)
[2022-09-27] MEDS: QUEtiapine FUMARATE 25 MG TAB PO SCH ×2 (10:03→21:40)
[2022-09-27] MEDS: amLODIPine BESYLATE 5 MG TAB PO SCH (10:03)
[2022-09-27] MEDS: FUROSEMIDE 20 MG/2 ML VIAL IV SCH (10:07)
[2022-09-27] MEDS: INSULIN LANTUS (GLARGINE) 1 /0.01ml (100units/ml) SC SCH (10:14)
[2022-09-27 13:00] VITALS: BP 99/59
[2022-09-27 20:00] VITALS: BP 110/62
[2022-09-28] MEDS: ACCU-CHEK COMFORT CURVE STRIP VI SCH ×4 (00:13→17:43)
[2022-09-28] MEDS: HYDROcodone-ACET 5/325MG TAB PO PRN ×3 (03:19→21:22)
[2022-09-28 05:00] VITALS: BP 91/55
[2022-09-28] MEDS: LEVOTHYROXINE SODIUM 100 MCG TAB PO SCH (06:22)
[2022-09-28] MEDS: EMPAGLIFLOZIN 10 MG TAB PO SCH (06:22)
[2022-09-28] MEDS: ACETAMINOPHEN 325 MG TAB PO PRN (06:28)
[2022-09-28] MEDS: InsuLIN REG 1unit/0.01ml Soln (100units/ml) SC SCH ×4 (06:35→17:43)
[2022-09-28] MEDS: QUEtiapine FUMARATE 25 MG TAB PO SCH ×2 (09:18→21:22)
[2022-09-28] MEDS: BACLOFEN 10 MG TAB PO SCH ×2 (09:18→21:21)
[2022-09-28] MEDS: PANTOPRAZOLE 40 MG/10 ML VIAL INJ IV SCH (09:18)
[2022-09-28] MEDS: ENOXAPARIN SOD 40 MG/0.4 ML SYRINGE SC SCH (09:19)
[2022-09-28] MEDS: SODIUM CHLOR 0.9% PF (SALINE LOCK) 10ML VIAL/SYR IV SCH ×2 (09:20→21:33)
[2022-09-28] MEDS: FUROSEMIDE 20 MG/2 ML VIAL IV SCH (09:20)
[2022-09-28] MEDS: POTASSIUM EFFERVESENT TAB 25 MEQ PO SCH (09:21)
[2022-09-28] MEDS: amLODIPine BESYLATE 5 MG TAB PO SCH (09:21)
[2022-09-28] MEDS: INSULIN LANTUS (GLARGINE) 1 /0.01ml (100units/ml) SC SCH (09:32)
[2022-09-28 13:00] VITALS: BP_SYST 121; BP_SYST 95; BP_DIAS 50; BP_DIAS 81
[2022-09-28 17:00] VITALS: BP 121/71
[2022-09-28 22:00] VITALS: BP 107/62
[2022-09-29] MEDS: ACCU-CHEK COMFORT CURVE STRIP VI SCH ×4 (01:42→17:28)
[2022-09-29] MEDS: InsuLIN REG 1unit/0.01ml Soln (100units/ml) SC SCH ×4 (01:45→17:27)
[2022-09-29 05:00] VITALS: BP 95/70
[2022-09-29] MEDS: EMPAGLIFLOZIN 10 MG TAB PO SCH (06:07)
[2022-09-29] MEDS: HYDROcodone-ACET 5/325MG TAB PO PRN ×2 (06:07→15:49)
[2022-09-29] MEDS: LEVOTHYROXINE SODIUM 100 MCG TAB PO SCH (06:08)
[2022-09-29 07:52] LABS: Basophils # (auto) 0.1 10 ^3/uL (0-0.2); Basophils % (auto) 1.8 % (0.0-2.0); Eosinophils # (auto) 0.1 10 ^3/uL (0-0.8); Hematocrit 38.7 % (36.0-46.0); Hemoglobin 12.7 g/dL (12.2-16.2); Lymphocytes # (auto) 1.7 10 ^3/uL (0.4-5.4); Lymphocytes % (auto) 35.9 % (10.0-50.0); Mean Corpuscular Hemoglobin 27.5 pg (28.0-32.0); Mean Corpuscular Hgb Conc. 32.8 g/dL (32.0-36.0); Mean Corpuscular Volume 83.9 fL (80.0-100.0); Monocytes # (auto) 0.4 10 ^3/uL (0-1.3); Monocytes % (auto) 8.7 % (0.0-12.0); Neutrophils # (auto) 2.5 10 ^3/uL (1.6-8.6); Neutrophils % (auto) 51.6 % (37.0-80.0); Red Blood Cells 4.61 10^6/uL (4.0-5.20); Red Cell Distribution Width 16.8 % (11.8-14.3); White Blood Cell 4.9 10^3/uL (4.4-10.8)
[2022-09-29 08:21] LABS: Potassium 3.4 mmol/L (3.5-5.1)
[2022-09-29 09:00] VITALS: BP 125/54
[2022-09-29] MEDS: POTASSIUM EFFERVESENT TAB 25 MEQ PO SCH (10:34)
[2022-09-29] MEDS: PANTOPRAZOLE 40 MG/10 ML VIAL INJ IV SCH (10:34)
[2022-09-29] MEDS: SODIUM CHLOR 0.9% PF (SALINE LOCK) 10ML VIAL/SYR IV SCH ×2 (10:35→21:08)
[2022-09-29] MEDS: BACLOFEN 10 MG TAB PO SCH ×2 (10:35→21:06)
[2022-09-29] MEDS: FUROSEMIDE 20 MG/2 ML VIAL IV SCH (10:35)
[2022-09-29] MEDS: amLODIPine BESYLATE 5 MG TAB PO SCH (10:37)
[2022-09-29] MEDS: QUEtiapine FUMARATE 25 MG TAB PO SCH ×2 (10:37→21:06)
[2022-09-29] MEDS: ENOXAPARIN SOD 40 MG/0.4 ML SYRINGE SC SCH (10:38)
[2022-09-29] MEDS: INSULIN LANTUS (GLARGINE) 1 /0.01ml (100units/ml) SC SCH (10:48)
[2022-09-29] MEDS: ACETAMINOPHEN 325 MG TAB PO PRN (11:04)
[2022-09-29 13:00] VITALS: BP 85/55
[2022-09-29 17:00] VITALS: BP 112/68
[2022-09-29 22:00] VITALS: BP 137/72
[2022-09-30 05:00] VITALS: BP 124/75
[2022-09-30] MEDS: InsuLIN REG 1unit/0.01ml Soln (100units/ml) SC SCH ×4 (06:24→17:39)
[2022-09-30] MEDS: LEVOTHYROXINE SODIUM 100 MCG TAB PO SCH (06:31)
[2022-09-30] MEDS: EMPAGLIFLOZIN 10 MG TAB PO SCH (06:31)
[2022-09-30] MEDS: ACCU-CHEK COMFORT CURVE STRIP VI SCH ×4 (06:31→17:39)
[2022-09-30] MEDS: HYDROcodone-ACET 5/325MG TAB PO PRN ×2 (06:34→20:17)
[2022-09-30] MEDS: POTASSIUM EFFERVESENT TAB 25 MEQ PO SCH (10:48)
[2022-09-30] MEDS: PANTOPRAZOLE 40 MG/10 ML VIAL INJ IV SCH (10:52)
[2022-09-30] MEDS: BACLOFEN 10 MG TAB PO SCH ×2 (10:52→21:54)
[2022-09-30] MEDS: QUEtiapine FUMARATE 25 MG TAB PO SCH ×2 (10:52→21:54)
[2022-09-30] MEDS: SODIUM CHLOR 0.9% PF (SALINE LOCK) 10ML VIAL/SYR IV SCH ×2 (10:53→21:54)
[2022-09-30] MEDS: amLODIPine BESYLATE 5 MG TAB PO SCH (10:54)
[2022-09-30] MEDS: FUROSEMIDE 20 MG/2 ML VIAL IV SCH (10:55)
[2022-09-30] MEDS: ENOXAPARIN SOD 40 MG/0.4 ML SYRINGE SC SCH (10:56)
[2022-09-30] MEDS: INSULIN LANTUS (GLARGINE) 1 /0.01ml (100units/ml) SC SCH (11:38)
[2022-09-30 17:07] VITALS: BP 115/67
[2022-09-30 22:00] VITALS: BP 121/70
[2022-10-01] MEDS: ACCU-CHEK COMFORT CURVE STRIP VI SCH ×5 (00:19→21:18)
[2022-10-01] MEDS: InsuLIN REG 1unit/0.01ml Soln (100units/ml) SC SCH ×3 (00:19→11:49)
[2022-10-01 05:00] VITALS: BP 106/64
[2022-10-01] MEDS: EMPAGLIFLOZIN 10 MG TAB PO SCH (06:27)
[2022-10-01] MEDS: LEVOTHYROXINE SODIUM 100 MCG TAB PO SCH (06:27)
[2022-10-01 09:00] VITALS: BP 165/123
[2022-10-01] MEDS: HYDROcodone-ACET 5/325MG TAB PO PRN ×2 (09:35→15:53)
[2022-10-01] MEDS: FUROSEMIDE 20 MG/2 ML VIAL IV SCH (09:37)
[2022-10-01] MEDS: SODIUM CHLOR 0.9% PF (SALINE LOCK) 10ML VIAL/SYR IV SCH ×2 (09:38→21:19)
[2022-10-01] MEDS: POTASSIUM EFFERVESENT TAB 25 MEQ PO SCH (09:39)
[2022-10-01] MEDS: BACLOFEN 10 MG TAB PO SCH ×2 (09:39→21:17)
[2022-10-01] MEDS: amLODIPine BESYLATE 5 MG TAB PO SCH (09:39)
[2022-10-01] MEDS: QUEtiapine FUMARATE 25 MG TAB PO SCH ×2 (09:40→21:17)
[2022-10-01] MEDS: ENOXAPARIN SOD 40 MG/0.4 ML SYRINGE SC SCH (09:41)
[2022-10-01] MEDS: PANTOPRAZOLE 40 MG/10 ML VIAL INJ IV SCH (10:02)
[2022-10-01] MEDS: INSULIN LANTUS (GLARGINE) 1 /0.01ml (100units/ml) SC SCH (10:22)
[2022-10-01] MEDS ORDERED: InsuLIN REG 1unit/0.01ml Soln (100units/ml) IV ONE (10:30)
[2022-10-01 13:00] VITALS: BP 101/70
[2022-10-01] MEDS ORDERED: DEXTROSE 10% 250 ML IV ONE ×2 (16:57→18:10)
[2022-10-01 17:00] VITALS: BP 109/86
[2022-10-01] MEDS ORDERED: InsuLIN REG 1unit/0.01ml Soln (100units/ml) SC SCH ×3 (17:00→22:00)
[2022-10-01] MEDS: DEXTROSE (50%) 50ML SYRG IV PRN ×2 (17:01→17:58)
[2022-10-01] MEDS ORDERED: DEXTROSE 10% 1,000 ML IV SCH (18:00)
[2022-10-01] MEDS ORDERED: D5W/SOD CHLO 0.9% 1,000 ML IV ONE (18:30)
[2022-10-01 19:00] VITALS: BP 124/50
[2022-10-01 19:35] LABS: Basophils # (auto) 0.1 10 ^3/uL (0-0.2); Eosinophils # (auto) 0 10 ^3/uL (0-0.8); Hemoglobin 11.7 g/dL (12.2-16.2)
[2022-10-01 19:37] LABS: Basophils % (auto) 0.5 % (0.0-2.0); Hematocrit 37.5 % (36.0-46.0); Lymphocytes % (auto) 5.6 % (10.0-50.0); Mean Corpuscular Hemoglobin 26.7 pg (28.0-32.0); Mean Corpuscular Hgb Conc. 31.2 g/dL (32.0-36.0); Mean Corpuscular Volume 85.6 fL (80.0-100.0); Neutrophils % (auto) 87.9 % (37.0-80.0); Nucleated Red Blood Cells % 0.1 %; Red Blood Cells 4.38 10^6/uL (4.0-5.20); Red Cell Distribution Width 17.4 % (11.8-14.3); White Blood Cell 17.1 10^3/uL (4.4-10.8)
[2022-10-01 19:55] LABS: Albumin 3.2 g/dL (3.4-5.0); Calcium 8.6 mg/dL (8.5-10.1); Potassium 4.6 mmol/L (3.5-5.1)
[2022-10-01 19:58] LABS: Bilirubin, Total 0.3 mg/dL (0.2-1.0); Total Protein 6.7 g/dL (6.4-8.2)
[2022-10-01 20:13] LABS: Lactic Acid w/Reflex 6.6 mmol/L (0.4-2.0)
[2022-10-01 20:43] LABS: BUN/Creatinine Ratio 16.4 (10.0-20.0)
[2022-10-01] MEDS ORDERED: SODIUM CHLORIDE 0.9% 1,000 ML IV ONE (21:00)
[2022-10-02 05:09] VITALS: BP 107/54
[2022-10-02 05:14] VITALS: BP 108/43
[2022-10-02] MEDS: EMPAGLIFLOZIN 10 MG TAB PO SCH (06:26)
[2022-10-02] MEDS: LEVOTHYROXINE SODIUM 100 MCG TAB PO SCH (06:30)
[2022-10-02] MEDS: ACCU-CHEK COMFORT CURVE STRIP VI SCH ×5 (06:30→21:46)
[2022-10-02 08:49] VITALS: BP 122/66
[2022-10-02] MEDS: ENOXAPARIN SOD 40 MG/0.4 ML SYRINGE SC SCH (09:03)
[2022-10-02] MEDS: QUEtiapine FUMARATE 25 MG TAB PO SCH ×2 (09:03→21:43)
[2022-10-02] MEDS: POTASSIUM EFFERVESENT TAB 25 MEQ PO SCH (09:04)
[2022-10-02] MEDS: BACLOFEN 10 MG TAB PO SCH ×2 (09:04→21:43)
[2022-10-02] MEDS: PANTOPRAZOLE 40 MG/10 ML VIAL INJ IV SCH (09:04)
[2022-10-02] MEDS: amLODIPine BESYLATE 5 MG TAB PO SCH (09:05)
[2022-10-02] MEDS: FUROSEMIDE 20 MG/2 ML VIAL IV SCH (09:05)
[2022-10-02] MEDS: SODIUM CHLOR 0.9% PF (SALINE LOCK) 10ML VIAL/SYR IV SCH ×2 (09:05→21:46)
[2022-10-02 12:31] VITALS: BP 97/57
[2022-10-02] MEDS: HYDROcodone-ACET 5/325MG TAB PO PRN ×2 (13:36→21:43)
[2022-10-02 15:55] VITALS: BP 90/68
[2022-10-02] MEDS ORDERED: DEXTROSE (50%) 50ML SYRG IV PRN (16:00)
[2022-10-02] MEDS: ACETAMINOPHEN 325 MG TAB PO PRN (17:55)
[2022-10-02] MEDS: InsuLIN REG 1unit/0.01ml Soln (100units/ml) SC SCH ×2 (17:58→21:46)
[2022-10-02 22:00] VITALS: BP 122/71
[2022-10-03 05:00] VITALS: BP 113/69
[2022-10-03] MEDS: LEVOTHYROXINE SODIUM 100 MCG TAB PO SCH (06:09)
[2022-10-03] MEDS: ACCU-CHEK COMFORT CURVE STRIP VI SCH ×4 (06:09→22:00)
[2022-10-03] MEDS: HYDROcodone-ACET 5/325MG TAB PO PRN (06:09)
[2022-10-03] MEDS: InsuLIN REG 1unit/0.01ml Soln (100units/ml) SC SCH ×4 (06:36→23:33)
[2022-10-03 08:06] LABS: RPR Non Reactive (Non Reactive)
[2022-10-03 08:41] LABS: Basophils # (auto) 0.1 10 ^3/uL (0-0.2); Basophils % (auto) 2.1 % (0.0-2.0); Eosinophils # (auto) 0.2 10 ^3/uL (0-0.8); Eosinophils % (auto) 4.1 % (0.0-7.0); Hematocrit 36.3 % (36.0-46.0); Hemoglobin 11.5 g/dL (12.2-16.2); Lymphocytes # (auto) 1.6 10 ^3/uL (0.4-5.4); Lymphocytes % (auto) 37.1 % (10.0-50.0); Mean Corpuscular Hemoglobin 27.2 pg (28.0-32.0); Mean Corpuscular Hgb Conc. 31.7 g/dL (32.0-36.0); Mean Corpuscular Volume 85.7 fL (80.0-100.0); Monocytes # (auto) 0.4 10 ^3/uL (0-1.3); Monocytes % (auto) 8.6 % (0.0-12.0); Neutrophils # (auto) 2.1 10 ^3/uL (1.6-8.6); Neutrophils % (auto) 48.1 % (37.0-80.0); Red Blood Cells 4.24 10^6/uL (4.0-5.20); Red Cell Distribution Width 17.1 % (11.8-14.3); White Blood Cell 4.3 10^3/uL (4.4-10.8)
[2022-10-03 09:00] VITALS: BP 130/83
[2022-10-03] MEDS: PANTOPRAZOLE 40 MG/10 ML VIAL INJ IV SCH (09:05)
[2022-10-03] MEDS: BACLOFEN 10 MG TAB PO SCH ×2 (09:06→22:41)
[2022-10-03] MEDS: amLODIPine BESYLATE 5 MG TAB PO SCH (09:07)
[2022-10-03] MEDS: QUEtiapine FUMARATE 25 MG TAB PO SCH (09:07)
[2022-10-03] MEDS: ENOXAPARIN SOD 40 MG/0.4 ML SYRINGE SC SCH (09:08)
[2022-10-03] MEDS: FUROSEMIDE 20 MG/2 ML VIAL IV SCH (09:09)
[2022-10-03] MEDS: SODIUM CHLOR 0.9% PF (SALINE LOCK) 10ML VIAL/SYR IV SCH ×2 (09:09→22:42)
[2022-10-03] MEDS: POTASSIUM EFFERVESENT TAB 25 MEQ PO SCH (09:09)
[2022-10-03 09:11] LABS: Potassium 4.2 mmol/L (3.5-5.1)
[2022-10-03 09:14] LABS: Calcium 8.8 mg/dL (8.5-10.1)
[2022-10-03 13:00] VITALS: BP 130/74
[2022-10-03 17:00] VITALS: BP 124/75
[2022-10-03 22:00] VITALS: BP 142/74
[2022-10-03] MEDS: QUEtiapine FUMARATE 100 MG TAB PO SCH (22:42)
[2022-10-04 05:00] VITALS: BP 107/62
[2022-10-04] MEDS: ACCU-CHEK COMFORT CURVE STRIP VI SCH ×4 (06:36→21:56)
[2022-10-04] MEDS: ACETAMINOPHEN 325 MG TAB PO PRN (06:36)
[2022-10-04] MEDS: LEVOTHYROXINE SODIUM 100 MCG TAB PO SCH (06:36)
[2022-10-04] MEDS: InsuLIN REG 1unit/0.01ml Soln (100units/ml) SC SCH ×4 (06:44→22:16)
[2022-10-04 09:00] VITALS: BP 125/74
[2022-10-04] MEDS: amLODIPine BESYLATE 5 MG TAB PO SCH (09:26)
[2022-10-04] MEDS: QUEtiapine FUMARATE 100 MG TAB PO SCH ×2 (09:26→21:52)
[2022-10-04] MEDS: PANTOPRAZOLE 40 MG/10 ML VIAL INJ IV SCH (09:27)
[2022-10-04] MEDS: ENOXAPARIN SOD 40 MG/0.4 ML SYRINGE SC SCH (09:27)
[2022-10-04] MEDS: BACLOFEN 10 MG TAB PO SCH ×3 (09:32→21:52)
[2022-10-04] MEDS: SODIUM CHLOR 0.9% PF (SALINE LOCK) 10ML VIAL/SYR IV SCH ×2 (10:00→21:52)
[2022-10-04] MEDS ORDERED: OLANZapine 5 MG TAB PO SCH (10:45)
[2022-10-04 17:00] VITALS: BP 138/85
[2022-10-04] MEDS: HYDROcodone-ACET 5/325MG TAB PO PRN (17:07)
[2022-10-04 22:00] VITALS: BP 114/62
[2022-10-04] MEDS: INSULIN LANTUS (GLARGINE) 1 /0.01ml (100units/ml) SC SCH (22:17)
[2022-10-05 05:00] VITALS: BP 138/75
[2022-10-05] MEDS: LEVOTHYROXINE SODIUM 100 MCG TAB PO SCH (06:34)
[2022-10-05] MEDS: ACCU-CHEK COMFORT CURVE STRIP VI SCH ×4 (06:34→21:54)
[2022-10-05] MEDS: BACLOFEN 10 MG TAB PO SCH ×3 (06:34→21:49)
[2022-10-05] MEDS: InsuLIN REG 1unit/0.01ml Soln (100units/ml) SC SCH ×4 (06:40→22:04)
[2022-10-05] MEDS: QUEtiapine FUMARATE 100 MG TAB PO SCH (10:00)
[2022-10-05] MEDS: PANTOPRAZOLE 40 MG/10 ML VIAL INJ IV SCH (10:01)
[2022-10-05] MEDS: ENOXAPARIN SOD 40 MG/0.4 ML SYRINGE SC SCH (10:01)
[2022-10-05] MEDS: amLODIPine BESYLATE 5 MG TAB PO SCH (10:01)
[2022-10-05] MEDS: HYDROcodone-ACET 5/325MG TAB PO PRN ×2 (10:02→22:46)
[2022-10-05] MEDS: SODIUM CHLOR 0.9% PF (SALINE LOCK) 10ML VIAL/SYR IV SCH ×2 (10:05→21:50)
[2022-10-05 13:32] VITALS: BP 101/58
[2022-10-05 16:34] VITALS: BP 131/87
[2022-10-05] MEDS: risperiDONE 1 MG TAB PO SCH (21:49)
[2022-10-05 22:00] VITALS: BP 142/87
[2022-10-05] MEDS: INSULIN LANTUS (GLARGINE) 1 /0.01ml (100units/ml) SC SCH (22:05)
[2022-10-06 05:00] VITALS: BP 113/61
[2022-10-06] MEDS: ACCU-CHEK COMFORT CURVE STRIP VI SCH ×4 (06:07→21:34)
[2022-10-06] MEDS: BACLOFEN 10 MG TAB PO SCH ×3 (06:07→21:34)
[2022-10-06] MEDS: LEVOTHYROXINE SODIUM 100 MCG TAB PO SCH (06:07)
[2022-10-06] MEDS: HYDROcodone-ACET 5/325MG TAB PO PRN ×2 (06:18→17:13)
[2022-10-06] MEDS: InsuLIN REG 1unit/0.01ml Soln (100units/ml) SC SCH ×4 (06:19→21:39)
[2022-10-06] MEDS: PANTOPRAZOLE 40 MG/10 ML VIAL INJ IV SCH (08:32)
[2022-10-06] MEDS: amLODIPine BESYLATE 5 MG TAB PO SCH (08:32)
[2022-10-06] MEDS: ENOXAPARIN SOD 40 MG/0.4 ML SYRINGE SC SCH (08:32)
[2022-10-06] MEDS: risperiDONE 1 MG TAB PO SCH (08:32)
[2022-10-06 08:33] VITALS: BP 103/68
[2022-10-06] MEDS: SODIUM CHLOR 0.9% PF (SALINE LOCK) 10ML VIAL/SYR IV SCH ×2 (10:19→22:00)
[2022-10-06 13:00] VITALS: BP 104/67
[2022-10-06 17:00] VITALS: BP 119/70
[2022-10-06] MEDS: INSULIN LANTUS (GLARGINE) 1 /0.01ml (100units/ml) SC SCH (21:38)
[2022-10-06 22:00] VITALS: BP 121/75
[2022-10-07] MEDS: HYDROcodone-ACET 5/325MG TAB PO PRN ×3 (01:00→20:36)
[2022-10-07] MEDS: ACETAMINOPHEN 325 MG TAB PO PRN (03:56)
[2022-10-07 05:00] VITALS: BP 117/71
[2022-10-07] MEDS: BACLOFEN 10 MG TAB PO SCH ×3 (05:51→21:25)
[2022-10-07] MEDS: LEVOTHYROXINE SODIUM 100 MCG TAB PO SCH (05:51)
[2022-10-07] MEDS: ACCU-CHEK COMFORT CURVE STRIP VI SCH ×4 (06:40→21:26)
[2022-10-07] MEDS: InsuLIN REG 1unit/0.01ml Soln (100units/ml) SC SCH ×4 (06:41→21:30)
[2022-10-07 06:47] LABS: Calcium 8.9 mg/dL (8.5-10.1); Potassium 4.2 mmol/L (3.5-5.1)
[2022-10-07 06:50] LABS: BUN/Creatinine Ratio 19.2 (10.0-20.0)
[2022-10-07 07:36] LABS: Basophils # (auto) 0 10 ^3/uL (0-0.2); Basophils % (auto) 1.1 % (0.0-2.0); Eosinophils # (auto) 0.2 10 ^3/uL (0-0.8); Eosinophils % (auto) 6.6 % (0.0-7.0); Hematocrit 37.8 % (36.0-46.0); Lymphocytes % (auto) 26.1 % (10.0-50.0); Mean Corpuscular Hgb Conc. 31.7 g/dL (32.0-36.0); Mean Corpuscular Volume 85.2 fL (80.0-100.0); Monocytes # (auto) 0.3 10 ^3/uL (0-1.3); Monocytes % (auto) 8.5 % (0.0-12.0); Neutrophils # (auto) 2.1 10 ^3/uL (1.6-8.6); Neutrophils % (auto) 57.7 % (37.0-80.0); Nucleated Red Blood Cells % 0.2 %; Red Blood Cells 4.44 10^6/uL (4.0-5.20); Red Cell Distribution Width 16.6 % (11.8-14.3); White Blood Cell 3.7 10^3/uL (4.4-10.8)
[2022-10-07 09:00] VITALS: BP 124/74
[2022-10-07] MEDS: PANTOPRAZOLE 40 MG/10 ML VIAL INJ IV SCH (10:29)
[2022-10-07] MEDS: SODIUM CHLOR 0.9% PF (SALINE LOCK) 10ML VIAL/SYR IV SCH ×2 (10:29→21:24)
[2022-10-07] MEDS: amLODIPine BESYLATE 5 MG TAB PO SCH (10:32)
[2022-10-07] MEDS: risperiDONE 1 MG TAB PO SCH (10:33)
[2022-10-07] MEDS: ENOXAPARIN SOD 40 MG/0.4 ML SYRINGE SC SCH (10:34)
[2022-10-07 13:00] VITALS: BP 128/77
[2022-10-07 16:53] VITALS: BP 105/67
[2022-10-07] MEDS: INSULIN LANTUS (GLARGINE) 1 /0.01ml (100units/ml) SC SCH (21:30)
[2022-10-07 22:00] VITALS: BP 104/74
[2022-10-08] MEDS: HYDROcodone-ACET 5/325MG TAB PO PRN ×3 (03:15→21:56)
[2022-10-08 05:00] VITALS: BP 120/77
[2022-10-08] MEDS: BACLOFEN 10 MG TAB PO SCH ×3 (06:21→21:50)
[2022-10-08] MEDS: LEVOTHYROXINE SODIUM 100 MCG TAB PO SCH (06:21)
[2022-10-08] MEDS: ACCU-CHEK COMFORT CURVE STRIP VI SCH ×4 (06:22→21:50)
[2022-10-08] MEDS: InsuLIN REG 1unit/0.01ml Soln (100units/ml) SC SCH ×4 (06:24→21:49)
[2022-10-08 09:00] VITALS: BP 137/81
[2022-10-08] MEDS: PANTOPRAZOLE 40 MG/10 ML VIAL INJ IV SCH (10:19)
[2022-10-08] MEDS: ENOXAPARIN SOD 40 MG/0.4 ML SYRINGE SC SCH (10:19)
[2022-10-08] MEDS: risperiDONE 1 MG TAB PO SCH (10:23)
[2022-10-08] MEDS: amLODIPine BESYLATE 5 MG TAB PO SCH (10:23)
[2022-10-08] MEDS: SODIUM CHLOR 0.9% PF (SALINE LOCK) 10ML VIAL/SYR IV SCH ×2 (10:24→21:50)
[2022-10-08 13:00] VITALS: BP 117/66
[2022-10-08 17:00] VITALS: BP 99/62
[2022-10-08 22:00] VITALS: BP 121/75
[2022-10-08] MEDS ORDERED: AMITRIPTYLINE HCL 10 MG TAB PO SCH (22:00)
[2022-10-08] MEDS ORDERED: INSULIN LANTUS (GLARGINE) 1 /0.01ml (100units/ml) SC SCH (22:00)
[2022-10-09 05:00] VITALS: BP 120/78
[2022-10-09] MEDS: BACLOFEN 10 MG TAB PO SCH ×2 (06:02→14:00)
[2022-10-09] MEDS: HYDROcodone-ACET 5/325MG TAB PO PRN (06:03)
[2022-10-09] MEDS: LEVOTHYROXINE SODIUM 100 MCG TAB PO SCH (06:03)
[2022-10-09] MEDS: InsuLIN REG 1unit/0.01ml Soln (100units/ml) SC SCH ×2 (06:07→11:30)
[2022-10-09] MEDS: ACCU-CHEK COMFORT CURVE STRIP VI SCH ×3 (06:09→11:58)
[2022-10-09 08:40] VITALS: BP 127/71
[2022-10-09] MEDS: PANTOPRAZOLE 40 MG/10 ML VIAL INJ IV SCH (11:00)
[2022-10-09] MEDS: ENOXAPARIN SOD 40 MG/0.4 ML SYRINGE SC SCH (11:00)
[2022-10-09] MEDS: SODIUM CHLOR 0.9% PF (SALINE LOCK) 10ML VIAL/SYR IV SCH (11:02)
[2022-10-09] MEDS: amLODIPine BESYLATE 5 MG TAB PO SCH (11:03)
[2022-10-09] MEDS: risperiDONE 1 MG TAB PO SCH (11:04)
[2022-10-09 12:45] VITALS: BP 102/69
== END 2022-10-09 15:30 | disposition home health service (06) | DRG 130 ==
LOC: EDBD 16:40 → ER 16:40 → TELE 09-12 12:47 → ICU WEST 09-12 23:48 → TELE-EAST 09-21 14:39 → EAST 09-24 11:47 → TELE-EAST 10-02 08:47 → EAST 10-03 17:35 → TELE-EAST 10-03 19:03 → EAST 10-05 16:23
PROVIDERS: ADMIT Nurse Practitioner Family; ATTEND Nurse Practitioner Acute Care
PROC: 5A1955Z Respiratory Ventilation, Greater than 96 Consecutive Hours (ICD-10-PCS; principal; 2022-09-13)
PROC: 0BH17EZ Insertion of Endotracheal Airway into Trachea, Via Natural or Artificial Opening (ICD-10-PCS; 2022-09-13)
PROC: 02H633Z Insertion of Infusion Device into Right Atrium, Percutaneous Approach (ICD-10-PCS; 2022-09-13)
PROC: B548ZZA Ultrasonography of Superior Vena Cava, Guidance (ICD-10-PCS; 2022-09-13)
DX: J96.00 Acute respiratory failure, unspecified whether with hypoxia or hypercapnia (principal); R57.1 Hypovolemic shock; G93.41 Metabolic encephalopathy; E11.10 Type 2 diabetes mellitus with ketoacidosis without coma; E46 Unspecified protein-calorie malnutrition; D64.9 Anemia, unspecified; N39.0 Urinary tract infection, site not specified; K56.41 Fecal impaction; I10 Essential (primary) hypertension; M62.82 Rhabdomyolysis; F17.210 Nicotine dependence, cigarettes, uncomplicated; R79.89 Other specified abnormal findings of blood chemistry; M62.838 Other muscle spasm; Z90.710 Acquired absence of both cervix and uterus; Z68.24 Body mass index [BMI] 24.0-24.9, adult
CPT/HCPCS: 36415; 36569; 36600; 70450; 71045; 74176; 80048; 80053; 80307; 81001; 82010; 82024; 82140; 82533; 82550; 82805; 82962; 83036; 83605; 83690; 83735; 83930; 83970; 84100; 84132; 85025; 85610; 86592; 87040; 87070; 87077; 87081; 87186; 87205; 94002; 94003; 94640; 95819; 96361; 96372; 96374; 96375; 97110; 97116; 97163; 97530; C9113; G0378; J0330; J0696; J1815; J1885; J2250; J2543; J2704; J3480; J7042; J7060

== ENCOUNTER 2022-11-11 19:18 | Emergency (ER) | payer MEDICAID ==
[~2022-11-11] VITALS: Ht 154.9 cm; Wt 50.0 kg
[2022-11-11] MEDS ORDERED: ACETAMINOPHEN 325 MG TAB PO ONE (20:00)
[2022-11-11] MEDS ORDERED: SODIUM CHLORIDE 0.9% 1,500 ML IV ONE (20:00)
[2022-11-11] MEDS ORDERED: LORazepam 2MG/ML-1ML VIAL IV PRN (20:00)
[2022-11-11] MEDS ORDERED: ONDANSETRON HCL 4 MG/2 ML VIAL IV ONE (20:00)
[2022-11-11] MEDS ORDERED: HYDROmorphone HCL 2 MG/ML VL/or syr IV ONE (20:00)
[2022-11-11] MEDS ORDERED: InsuLIN REG 1unit/0.01ml Soln (100units/ml) IV ONE (20:00)
[2022-11-11] MEDS ORDERED: SODIUM CHLORIDE 0.9% 1,000 ML IV ONE (20:00)
[2022-11-11 20:26] LABS: Basophils # (auto) 0 10 ^3/uL (0-0.2); Basophils % (auto) 0.9 % (0.0-2.0); Eosinophils # (auto) 0.1 10 ^3/uL (0-0.8); Eosinophils % (auto) 2.4 % (0.0-7.0); Monocytes # (auto) 0.3 10 ^3/uL (0-1.3); Neutrophils # (auto) 2.7 10 ^3/uL (1.6-8.6); White Blood Cell 5.1 10^3/uL (4.4-10.8)
[2022-11-11 20:28] LABS: Hematocrit 39.6 % (36.0-46.0); Hemoglobin 12.4 g/dL (12.2-16.2); Lymphocytes % (auto) 38.6 % (10.0-50.0); Mean Corpuscular Hemoglobin 25.9 pg (28.0-32.0); Mean Corpuscular Hgb Conc. 31.3 g/dL (32.0-36.0); Mean Corpuscular Volume 82.7 fL (80.0-100.0); Monocytes % (auto) 6.3 % (0.0-12.0); Neutrophils % (auto) 51.8 % (37.0-80.0); Nucleated Red Blood Cells % 0.1 %; Red Blood Cells 4.78 10^6/uL (4.0-5.20); Red Cell Distribution Width 17.1 % (11.8-14.3)
[2022-11-11 20:41] LABS: INR 0.93 (0.9-1.15); Partial Thromboplastin Time 24.9 SEC (24.5-34.5); Prothrombin Time 9.8 sec (9.3-11.8)
[2022-11-11 20:44] LABS: Alanine Aminotransferase 39 U/L (13-56); Albumin 3.3 g/dL (3.4-5.0); Anion Gap 9 (5-15); Aspartate Aminotransferase 25 U/L (15-37); Blood Urea Nitrogen 21 mg/dL (7-18); Calcium 8.6 mg/dL (8.5-10.1); Carbon Dioxide 20 mmol/L (21-32); Chloride 109 mmol/L (98-107); GFR African American 88 mL/min; GFR Non-African American 73 mL/min; Glucose 344 mg/dL (74-106); Lactic Acid w/Reflex 2.3 mmol/L (0.4-2.0); Magnesium 2.3 mg/dL (1.6-2.6); Potassium 4.3 mmol/L (3.5-5.1); Sodium 138 mmol/L (136-145)
[2022-11-11 20:47] LABS: Alkaline Phosphatase 157 U/L (45-117); Bilirubin, Total < 0.1 mg/dL (0.2-1.0)
[2022-11-11 20:49] LABS: Blood Alcohol < 3.0 mg/dL (<10)
[2022-11-11] MEDS ORDERED: IBUPROFEN 600 MG TAB PO ONE ×2 (23:15)
[2022-11-11 23:16] VITALS: BP 99/65; PULSE 67; RESP 16; TEMP 97.4; O2SAT 94
[2022-11-12 10:52] LABS: Base Excess -5.4 mmol/L (-2.0-2.0)
[2022-11-13] MEDS ORDERED: GABA600T PO (04:24)
[2022-11-13] MEDS ORDERED: ACET-6 PO (04:24)
[2022-11-13] MEDS ORDERED: TOPI100T29 PO (04:24)
[2022-11-13] MEDS ORDERED: IBUP-1456 PO (04:24)
== END 2022-11-12 01:33 | disposition home or self-care (01) ==
LOC: ER 19:18 → EDBD 19:18 → ER 11-12 01:15
DX: E11.65 Type 2 diabetes mellitus with hyperglycemia (principal); E11.40 Type 2 diabetes mellitus with diabetic neuropathy, unspecified; M79.605 Pain in left leg; M79.604 Pain in right leg; M54.50 Low back pain, unspecified; E03.9 Hypothyroidism, unspecified; I10 Essential (primary) hypertension; Z79.4 Long term (current) use of insulin; Z79.1 Long term (current) use of non-steroidal anti-inflammatories (NSAID); Z79.899 Other long term (current) drug therapy
CPT/HCPCS: 36415; 36600; 70450; 71045; 74176; 80053; 80320; 82010; 82553; 82805; 82962; 83605; 83735; 83880; 84484; 85025; 85610; 85730; 86850; 86900; 86901; 87040; 93005; 96360; 99285; J7030

== ENCOUNTER 2022-11-12 10:50 | Inpatient (IN) | payer MEDICAID ==
[~2022-11-12] VITALS: Ht 157.5 cm; Wt 55.3 kg
[2022-11-12 12:08] LABS: Basophils # (auto) 0 10 ^3/uL (0-0.2); Eosinophils # (auto) 0.1 10 ^3/uL (0-0.8); Hemoglobin 12.7 g/dL (12.2-16.2); Lymphocytes # (auto) 1.7 10 ^3/uL (0.4-5.4); Monocytes # (auto) 0.4 10 ^3/uL (0-1.3); Nucleated Red Blood Cells % 0.1 %
[2022-11-12 12:10] LABS: Basophils % (auto) 0.8 % (0.0-2.0); Eosinophils % (auto) 1.3 % (0.0-7.0); Hematocrit 39.9 % (36.0-46.0); Lymphocytes % (auto) 28.5 % (10.0-50.0); Mean Corpuscular Hemoglobin 26.2 pg (28.0-32.0); Mean Corpuscular Hgb Conc. 31.8 g/dL (32.0-36.0); Mean Corpuscular Volume 82.6 fL (80.0-100.0); Monocytes % (auto) 6.7 % (0.0-12.0); Neutrophils # (auto) 3.7 10 ^3/uL (1.6-8.6); Neutrophils % (auto) 62.7 % (37.0-80.0); Red Blood Cells 4.83 10^6/uL (4.0-5.20)
[2022-11-12 12:23] LABS: Albumin 3.4 g/dL (3.4-5.0); Magnesium 2.4 mg/dL (1.6-2.6); Potassium 4.4 mmol/L (3.5-5.1)
[2022-11-12 12:27] LABS: BUN/Creatinine Ratio 23.2 (10.0-20.0); Bilirubin, Total 0.2 mg/dL (0.2-1.0); Total Protein 6.9 g/dL (6.4-8.2)
[2022-11-12] MEDS ORDERED: SODIUM CHLORIDE 0.9% 1,000 ML IV ONE ×2 (14:00→15:00)
[2022-11-12] MEDS ORDERED: DEXTROSE (50%) 50ML SYRG IV PRN (15:00)
[2022-11-12] MEDS ORDERED: ACETAMINOPHEN 325 MG TAB PO PRN (15:00)
[2022-11-12] MEDS ORDERED: SENNA 8.6 MG TAB PO PRN (15:00)
[2022-11-12] MEDS ORDERED: MORPHINE SULFATE INJ 2 MG/ml SYRG IV PRN (15:00)
[2022-11-12 17:01] VITALS: RESP 24; O2SAT 99
[2022-11-12] MEDS: ACCU-CHEK COMFORT CURVE STRIP VI SCH ×2 (20:10→22:00)
[2022-11-12] MEDS: InsuLIN REG 1unit/0.01ml Soln (100units/ml) SC SCH ×2 (20:15→22:47)
[2022-11-12] MEDS: INSULIN ASPART PROTAMINE SC SCH (22:00)
[2022-11-12] MEDS: ASP SC SCH (22:00)
[2022-11-12] MEDS: GABAPENTIN 300 MG CAP PO SCH (22:45)
[2022-11-12] MEDS: BACLOFEN 10 MG TAB PO SCH (22:45)
[2022-11-13] VITALS (8 sets, daily range): BP systolic 119–157; BP diastolic 71–95; PULSE 67–83; RESP 16–20; TEMP 97.6–98; O2SAT 94–100
[2022-11-13] MEDS ORDERED: IBUP-1456 PO (04:24)
[2022-11-13] MEDS ORDERED: ACET-6 PO (04:24)
[2022-11-13] MEDS ORDERED: TOPI100T29 PO (04:24)
[2022-11-13] MEDS ORDERED: GABA600T PO (04:24)
[2022-11-13 06:10] LABS: Basophils # (auto) 0 10 ^3/uL (0-0.2); Eosinophils # (auto) 0.1 10 ^3/uL (0-0.8); Hematocrit 35.9 % (36.0-46.0); Lymphocytes # (auto) 1.9 10 ^3/uL (0.4-5.4); Monocytes # (auto) 0.3 10 ^3/uL (0-1.3); Red Blood Cells 4.09 10^6/uL (4.0-5.20)
[2022-11-13 06:13] LABS: Basophils % (auto) 0.6 % (0.0-2.0); Eosinophils % (auto) 2.1 % (0.0-7.0); Hemoglobin 11.1 g/dL (12.2-16.2); Mean Corpuscular Hemoglobin 27.1 pg (28.0-32.0); Mean Corpuscular Hgb Conc. 30.8 g/dL (32.0-36.0); Mean Corpuscular Volume 87.8 fL (80.0-100.0); Monocytes % (auto) 6.4 % (0.0-12.0); Neutrophils % (auto) 55.9 % (37.0-80.0); Nucleated Red Blood Cells % 0.3 %; Red Cell Distribution Width 17.6 % (11.8-14.3); White Blood Cell 5.4 10^3/uL (4.4-10.8)
[2022-11-13] MEDS: GABAPENTIN 300 MG CAP PO SCH ×3 (06:23→21:16)
[2022-11-13] MEDS: LEVOTHYROXINE SODIUM 100 MCG TAB PO SCH (06:23)
[2022-11-13] MEDS: EMPAGLIFLOZIN 10 MG TAB PO SCH (06:23)
[2022-11-13] MEDS: ACCU-CHEK COMFORT CURVE STRIP VI SCH ×4 (06:26→21:16)
[2022-11-13] MEDS: InsuLIN REG 1unit/0.01ml Soln (100units/ml) SC SCH ×5 (06:47→21:34)
[2022-11-13 09:22] LABS: Albumin 3.1 g/dL (3.4-5.0); BUN/Creatinine Ratio 18.8 (10.0-20.0); Calcium 9.1 mg/dL (8.5-10.1); Potassium 3.9 mmol/L (3.5-5.1)
[2022-11-13 09:25] LABS: Bilirubin, Total 0.2 mg/dL (0.2-1.0); Total Protein 6.8 g/dL (6.4-8.2)
[2022-11-13] MEDS: PANTOPRAZOLE 40 MG TAB PO SCH (09:47)
[2022-11-13] MEDS: BACLOFEN 10 MG TAB PO SCH ×2 (09:47→21:16)
[2022-11-13] MEDS: ENOXAPARIN SOD 40 MG/0.4 ML SYRINGE SC SCH (09:50)
[2022-11-13] MEDS: INSULIN ASPART PROTAMINE SC SCH (10:00)
[2022-11-13] MEDS: ASP SC SCH (10:00)
[2022-11-13] MEDS: ALOGLIPTIN BENZOATE 25 MG PO SCH (10:00)
[2022-11-13] MEDS: HYDROcodone-ACET 5/325MG TAB PO PRN (15:10)
[2022-11-13 18:07] LABS: Urine Bacteria NONE SEEN /hpf (None Seen); Urine Blood Negative /uL (Negative); Urine Clarity Clear (Clear); Urine Color Colorless (Yellow); Urine Protein, UAD Negative (Negative); Urine Specific Gravity 1.018 (1.001-1.035); Urine Urobilinogen Normal (Negative); Urine WBC <1 /hpf (0 - 5); Urine pH 5.5 (5.0-8.0)
[2022-11-13] MEDS: INSULIN LANTUS (GLARGINE) 1 /0.01ml (100units/ml) SC SCH (22:00)
[2022-11-14] VITALS (7 sets, daily range): BP systolic 100–156; BP diastolic 50–82; PULSE 72–109; RESP 16–22; TEMP 97.6–98.3; O2SAT 94–97
[2022-11-14] MEDS: HYDROcodone-ACET 5/325MG TAB PO PRN ×3 (00:25→17:16)
[2022-11-14] MEDS: GABAPENTIN 300 MG CAP PO SCH ×3 (05:58→22:47)
[2022-11-14] MEDS: EMPAGLIFLOZIN 10 MG TAB PO SCH (05:59)
[2022-11-14] MEDS: LEVOTHYROXINE SODIUM 100 MCG TAB PO SCH (05:59)
[2022-11-14 06:21] LABS: Eosinophils # (auto) 0.1 10 ^3/uL (0-0.8); Hemoglobin 12.6 g/dL (12.2-16.2); Monocytes # (auto) 0.4 10 ^3/uL (0-1.3); White Blood Cell 5.8 10^3/uL (4.4-10.8)
[2022-11-14 06:23] LABS: Basophils # (auto) 0.1 10 ^3/uL (0-0.2); Basophils % (auto) 1.5 % (0.0-2.0); Eosinophils % (auto) 2.2 % (0.0-7.0); Hematocrit 40.9 % (36.0-46.0); Lymphocytes # (auto) 2.2 10 ^3/uL (0.4-5.4); Lymphocytes % (auto) 36.9 % (10.0-50.0); Mean Corpuscular Hemoglobin 26.5 pg (28.0-32.0); Mean Corpuscular Hgb Conc. 30.8 g/dL (32.0-36.0); Mean Corpuscular Volume 86.1 fL (80.0-100.0); Neutrophils # (auto) 3.1 10 ^3/uL (1.6-8.6); Neutrophils % (auto) 52.4 % (37.0-80.0); Nucleated Red Blood Cells % 0.4 %; Red Blood Cells 4.75 10^6/uL (4.0-5.20); Red Cell Distribution Width 17.9 % (11.8-14.3)
[2022-11-14 06:34] LABS: Albumin 3.3 g/dL (3.4-5.0); Anion Gap 13 (5-15); Blood Urea Nitrogen 24 mg/dL (7-18); Calcium 9.2 mg/dL (8.5-10.1); Carbon Dioxide 18 mmol/L (21-32); Chloride 102 mmol/L (98-107); Potassium 4.5 mmol/L (3.5-5.1); Sodium 133 mmol/L (136-145)
[2022-11-14] MEDS: InsuLIN REG 1unit/0.01ml Soln (100units/ml) SC SCH ×7 (06:34→22:00)
[2022-11-14 06:35] LABS: Alanine Aminotransferase 22 U/L (13-56); Aspartate Aminotransferase 18 U/L (15-37); BUN/Creatinine Ratio 25.5 (10.0-20.0); GFR African American 78 mL/min; GFR Non-African American 64 mL/min
[2022-11-14] MEDS: ACCU-CHEK COMFORT CURVE STRIP VI SCH ×4 (06:35→22:51)
[2022-11-14 06:57] LABS: Alkaline Phosphatase 125 U/L (45-117); Bilirubin, Total 0.3 mg/dL (0.2-1.0); Total Protein 7.2 g/dL (6.4-8.2)
[2022-11-14 07:01] LABS: Glucose 412 mg/dL (74-106)
[2022-11-14] MEDS: PANTOPRAZOLE 40 MG TAB PO SCH (08:09)
[2022-11-14] MEDS: ENOXAPARIN SOD 40 MG/0.4 ML SYRINGE SC SCH (08:09)
[2022-11-14] MEDS: BACLOFEN 10 MG TAB PO SCH ×2 (08:10→22:47)
[2022-11-14] MEDS: LOSARTAN POTASSIUM 50 MG TAB PO SCH (08:10)
[2022-11-14] MEDS: ALOGLIPTIN BENZOATE 25 MG PO SCH (10:00)
[2022-11-14] MEDS: CARBIDOPA W LEVODOPA 25/100mg TABLET PO SCH (22:46)
[2022-11-14] MEDS: INSULIN LANTUS (GLARGINE) 1 /0.01ml (100units/ml) SC SCH (22:59)
[2022-11-15] VITALS (7 sets, daily range): BP systolic 90–144; BP diastolic 59–93; PULSE 69–93; RESP 14–20; TEMP 97.7–98.1; O2SAT 90–96
[2022-11-15] MEDS: HYDROcodone-ACET 5/325MG TAB PO PRN ×4 (00:41→18:28)
[2022-11-15] MEDS: GABAPENTIN 300 MG CAP PO SCH ×3 (06:24→23:00)
[2022-11-15] MEDS: LEVOTHYROXINE SODIUM 100 MCG TAB PO SCH (06:24)
[2022-11-15] MEDS: EMPAGLIFLOZIN 10 MG TAB PO SCH (06:24)
[2022-11-15] MEDS: CARBIDOPA W LEVODOPA 25/100mg TABLET PO SCH ×3 (06:24→23:00)
[2022-11-15] MEDS: ACCU-CHEK COMFORT CURVE STRIP VI SCH ×4 (06:27→22:40)
[2022-11-15] MEDS: InsuLIN REG 1unit/0.01ml Soln (100units/ml) SC SCH ×7 (06:37→23:00)
[2022-11-15 07:21] LABS: Eosinophils # (auto) 0.1 10 ^3/uL (0-0.8); Hematocrit 40.9 % (36.0-46.0); Mean Corpuscular Volume 83.2 fL (80.0-100.0); Monocytes # (auto) 0.5 10 ^3/uL (0-1.3); Nucleated Red Blood Cells % 0.1 %; Red Cell Distribution Width 17.8 % (11.8-14.3)
[2022-11-15 07:23] LABS: Basophils # (auto) 0 10 ^3/uL (0-0.2); Basophils % (auto) 0.8 % (0.0-2.0); Eosinophils % (auto) 1.3 % (0.0-7.0); Hemoglobin 12.9 g/dL (12.2-16.2); Lymphocytes % (auto) 33.2 % (10.0-50.0); Mean Corpuscular Hemoglobin 26.2 pg (28.0-32.0); Mean Corpuscular Hgb Conc. 31.5 g/dL (32.0-36.0); Monocytes % (auto) 7.8 % (0.0-12.0); Neutrophils # (auto) 3.5 10 ^3/uL (1.6-8.6); Neutrophils % (auto) 56.9 % (37.0-80.0); Red Blood Cells 4.92 10^6/uL (4.0-5.20); White Blood Cell 6.1 10^3/uL (4.4-10.8)
[2022-11-15 07:27] LABS: Albumin 3.6 g/dL (3.4-5.0); Potassium 4.8 mmol/L (3.5-5.1)
[2022-11-15 07:33] LABS: BUN/Creatinine Ratio 27.6 (10.0-20.0); Bilirubin, Total 0.5 mg/dL (0.2-1.0); Total Protein 7.6 g/dL (6.4-8.2)
[2022-11-15] MEDS ORDERED: INSU1INJ26 SC (09:27)
[2022-11-15] MEDS ORDERED: CAR25T PO (09:27)
[2022-11-15] MEDS: LOSARTAN POTASSIUM 50 MG TAB PO SCH (10:00)
[2022-11-15] MEDS: ALOGLIPTIN BENZOATE 25 MG PO SCH (10:00)
[2022-11-15] MEDS: BACLOFEN 10 MG TAB PO SCH ×2 (10:04→23:00)
[2022-11-15] MEDS: ENOXAPARIN SOD 40 MG/0.4 ML SYRINGE SC SCH (10:04)
[2022-11-15] MEDS: PANTOPRAZOLE 40 MG TAB PO SCH (10:05)
[2022-11-15] MEDS: INSULIN LANTUS (GLARGINE) 1 /0.01ml (100units/ml) SC SCH (23:00)
[2022-11-16] MEDS: HYDROcodone-ACET 5/325MG TAB PO PRN ×2 (01:08→09:22)
[2022-11-16 05:00] VITALS: BP 108/74; PULSE 77; RESP 14; TEMP 98.1; O2SAT 94
[2022-11-16] MEDS: EMPAGLIFLOZIN 10 MG TAB PO SCH (06:46)
[2022-11-16] MEDS: LEVOTHYROXINE SODIUM 100 MCG TAB PO SCH (06:46)
[2022-11-16] MEDS: ACCU-CHEK COMFORT CURVE STRIP VI SCH ×3 (06:47→17:00)
[2022-11-16] MEDS: CARBIDOPA W LEVODOPA 25/100mg TABLET PO SCH ×2 (06:47→14:45)
[2022-11-16] MEDS: GABAPENTIN 300 MG CAP PO SCH ×2 (06:47→14:44)
[2022-11-16] MEDS: InsuLIN REG 1unit/0.01ml Soln (100units/ml) SC SCH ×6 (06:48→17:00)
[2022-11-16 08:00] VITALS: BP_SYST 101; BP_SYST 145; BP_DIAS 59; BP_DIAS 85; PULSE 79; PULSE 89; RESP 16; RESP 17; TEMP 98; TEMP 98.3; O2SAT 92; O2SAT 96
[2022-11-16] MEDS: PANTOPRAZOLE 40 MG TAB PO SCH (09:28)
[2022-11-16] MEDS: BACLOFEN 10 MG TAB PO SCH (09:28)
[2022-11-16] MEDS: ENOXAPARIN SOD 40 MG/0.4 ML SYRINGE SC SCH (09:28)
[2022-11-16] MEDS: LOSARTAN POTASSIUM 50 MG TAB PO SCH (09:29)
[2022-11-16] MEDS: ALOGLIPTIN BENZOATE 25 MG PO SCH (09:31)
[2022-11-16 10:39] LABS: Basophils # (auto) 0.1 10 ^3/uL (0-0.2); Basophils % (auto) 1.1 % (0.0-2.0); Eosinophils # (auto) 0.1 10 ^3/uL (0-0.8); Eosinophils % (auto) 1.4 % (0.0-7.0); Monocytes # (auto) 0.5 10 ^3/uL (0-1.3); Nucleated Red Blood Cells % 0.1 %
[2022-11-16 10:42] LABS: Hematocrit 41.4 % (36.0-46.0); Lymphocytes # (auto) 2.7 10 ^3/uL (0.4-5.4); Lymphocytes % (auto) 37.1 % (10.0-50.0); Mean Corpuscular Hemoglobin 26.4 pg (28.0-32.0); Mean Corpuscular Hgb Conc. 31.4 g/dL (32.0-36.0); Monocytes % (auto) 7.3 % (0.0-12.0); Neutrophils # (auto) 3.9 10 ^3/uL (1.6-8.6); Neutrophils % (auto) 53.1 % (37.0-80.0); Red Blood Cells 4.93 10^6/uL (4.0-5.20); Red Cell Distribution Width 17.7 % (11.8-14.3); White Blood Cell 7.3 10^3/uL (4.4-10.8)
[2022-11-16 12:00] VITALS: BP 105/63; PULSE 74; RESP 18; TEMP 98.3; O2SAT 94
[2022-11-16 14:24] LABS: Albumin 3.2 g/dL (3.4-5.0); Calcium 9.4 mg/dL (8.5-10.1); Potassium 4.4 mmol/L (3.5-5.1)
[2022-11-16 14:31] LABS: BUN/Creatinine Ratio 35.7 (10.0-20.0); Bilirubin, Total 0.2 mg/dL (0.2-1.0); Total Protein 6.7 g/dL (6.4-8.2)
[2022-11-16 14:46] VITALS: BP 108/74; TEMP 36.8
[2022-11-16 16:00] VITALS: BP 135/72; PULSE 72; RESP 16; TEMP 97.9; O2SAT 98
[2022-11-16] MEDS ORDERED: INSULIN LANTUS (GLARGINE) 1 /0.01ml (100units/ml) SC SCH (20:00)
== END 2022-11-16 20:06 | DRG 48 ==
LOC: EDBD 10:50 → ER 10:50 → OVERFLOW 15:00 → WEST WING 11-13 01:17
PROVIDERS: ADMIT Internal Medicine Pulmonary Disease
DX: E11.42 Type 2 diabetes mellitus with diabetic polyneuropathy (principal); E03.9 Hypothyroidism, unspecified; E11.65 Type 2 diabetes mellitus with hyperglycemia; E86.0 Dehydration; I10 Essential (primary) hypertension; F17.210 Nicotine dependence, cigarettes, uncomplicated; W18.39XA Other fall on same level, initial encounter; G89.29 Other chronic pain; Z82.3 Family history of stroke; Z82.49 Family history of ischemic heart disease and other diseases of the circulatory system; Z83.3 Family history of diabetes mellitus; Z90.710 Acquired absence of both cervix and uterus; Y93.89 Activity, other specified; Y99.8 Other external cause status; Y92.098 Other place in other non-institutional residence as the place of occurrence of the external cause
CPT/HCPCS: 36415; 71045; 73620; 80053; 81001; 82962; 83735; 84443; 84484; 85025; 87081; 96361; 96374; 97110; 97116; 97163; 97530; G0378; J1815

== ENCOUNTER 2023-07-22 08:04 | Inpatient (IN) | payer MEDICAID ==
[~2023-07-22] VITALS: Ht 160 cm; Wt 49.1 kg
[2023-07-22] VITALS (10 sets, daily range): BP systolic 91–135; BP diastolic 38–70; PULSE 61–146; RESP 14–30; O2SAT 94–100
[~2023-07-22 08:04] MED LIST changes: +ACET-6 PO; +CAR25T PO; +GABA600T PO; +IBUP-1456 PO; +TOPI100T29 PO
[2023-07-22] MEDS: SODIUM BICARB 8.4% 50Meq/50ml SYR Vial IV ONE ×3 (08:10→09:42)
[2023-07-22] MEDS: ETOMIDATE (2MG/ML) 20ML VIAL IV ONE ×2 (08:10→08:11)
[2023-07-22] MEDS: SUCCINYLCHOLINE CHLORIDE 20 MG/ML 10ML VIAL IV ONE ×2 (08:11)
[2023-07-22] MEDS: SODIUM BICARB 8.4% 50Meq/50ml SYR INJ ONE (08:12)
[2023-07-22] MEDS: InsuLIN REG 1unit/0.01ml Soln (100units/ml) IV ONE (08:13)
[2023-07-22] MEDS ORDERED: DEXTROSE (50%) 50ML SYRG IV PRN ×2 (08:15→10:00)
[2023-07-22] MEDS: MIDAZOLAM DRIP 50 mg/50mL 50 ML IV SCH (08:30)
[2023-07-22 08:36] LABS: Base Excess -23.4 mmol/L (-2.0-2.0)
[2023-07-22 08:45] LABS: Urine Bacteria None Seen /hpf (None Seen)
[2023-07-22] MEDS: MIDAZOLAM DRIP 50 mg/50mL 50 ML IV ONE (08:48)
[2023-07-22 08:51] LABS: Eosinophils # (auto) 0 10 ^3/uL (0-0.8); Hematocrit 40.5 % (36.0-46.0); Monocytes # (auto) 0.1 10 ^3/uL (0-1.3); White Blood Cell 15.8 10^3/uL (4.4-10.8)
[2023-07-22 08:51] LABS: Urine Blood TRACE /uL (Negative); Urine Clarity Clear (Clear); Urine Color Light-Yellow (Yellow); Urine Hyaline Cast FEW /lpf (0 - 2); Urine Mucus FEW (None Seen); Urine Protein, UAD 1+ (Negative); Urine Specific Gravity 1.019 (1.001-1.035); Urine Urobilinogen Normal (Negative); Urine WBC 7 /hpf (0 - 5)
[2023-07-22 08:53] LABS: Basophils # (auto) 0 10 ^3/uL (0-0.2); Basophils % (auto) 0.2 % (0.0-2.0); Hemoglobin 11.1 g/dL (12.2-16.2); Lymphocytes # (auto) 1.6 10 ^3/uL (0.4-5.4); Lymphocytes % (auto) 10.1 % (10.0-50.0); Mean Corpuscular Hgb Conc. 27.4 g/dL (32.0-36.0); Mean Corpuscular Volume 91.1 fL (80.0-100.0); Monocytes % (auto) 0.3 % (0.0-12.0); Neutrophils # (auto) 14.1 10 ^3/uL (1.6-8.6); Neutrophils % (auto) 89.4 % (37.0-80.0); Red Blood Cells 4.44 10^6/uL (4.0-5.20); Red Cell Distribution Width 22.1 % (11.8-14.3)
[2023-07-22] MEDS: SODIUM CHLORIDE 0.9% 1,000 ML IVB ONE (08:57)
[2023-07-22] MEDS: NOREPINEPHRINE 8 MG/250ML KIT 250 ML IV ONE (08:58)
[2023-07-22 09:04] LABS: Chloride 92 mmol/L (98-107); Sodium 133 mmol/L (136-145)
[2023-07-22] MEDS: INSULIN DRIP 100 UNIT/100ML 100 ML IV SCH (09:04)
[2023-07-22] MEDS: ACCU-CHEK COMFORT CURVE STRIP VI SCH ×2 (09:04→11:04)
[2023-07-22 09:05] LABS: Anion Gap 31.00001 (5-15)
[2023-07-22] MEDS: NOREPINEPHRINE 8 MG/250ML KIT 250 ML IV SCH ×2 (09:05→10:19)
[2023-07-22 09:06] LABS: Calcium 7.6 mg/dL (8.5-10.1)
[2023-07-22 09:11] LABS: BUN/Creatinine Ratio 11.7 (10.0-20.0); Blood Urea Nitrogen 35 mg/dL (9-23)
[2023-07-22 09:29] LABS: Carbon Dioxide < 10 mmol/L (20-30); Glucose 682 mg/dL (74-106); Potassium 5.9 mmol/L (3.5-5.1)
[2023-07-22] MEDS: CALCIUM GLUC 1,000mg/50ml-NS 50 ML IV ONE (09:41)
[2023-07-22] MEDS: cefTRIAXone 1GM/50ML D5W 50 ML IV ONE (09:41)
[2023-07-22] MEDS: VANCOMYCIN 1GM/200ML 200 ML IV ONE (09:42)
[2023-07-22] MEDS: SODIUM CHLORIDE 0.9% 1,000 ML IV ONE (09:43)
[2023-07-22] MEDS ORDERED: ONDANSETRON HCL 4 MG/2 ML VIAL IV PRN (10:00)
[2023-07-22] MEDS ORDERED: VANCOMYCIN PER PHARMACY 0 MG IV SCH (10:00)
[2023-07-22] MEDS ORDERED: SODIUM BICARB 50mEq/50ml Vial 50 ML in SOD CHL 0.45% 1,000 ML IV ONE (10:00)
[2023-07-22 10:45] LABS: Triglycerides 685 mg/dL (< 150)
[2023-07-22 10:47] LABS: Cholesterol 204 mg/dL (< 200); HDL Cholesterol 34 mg/dL (40-59)
[2023-07-22] MEDS: ENOXAPARIN SOD 30 MG/0.3 ML SYRINGE SC SCH (10:52)
[2023-07-22] MEDS: levETIRAcetam 1000 mg/100ml 100 ML IV SCH (10:52)
[2023-07-22 10:53] LABS: INR 0.98 (0.9-1.15); Prothrombin Time 10.3 sec (9.3-11.8)
[2023-07-22] MEDS: PANTOPRAZOLE 40 MG/10 ML VIAL INJ IV SCH (10:53)
[2023-07-22] MEDS: INSULIN LANTUS (GLARGINE) 1 /0.01ml (100units/ml) SC ONE ×2 (10:55→22:11)
[2023-07-22 11:02] LABS: Magnesium 2.5 mg/dL (1.6-2.6)
[2023-07-22] MEDS: SODIUM CHLORIDE 0.9% 1,000 ML IV SCH ×4 (12:01→23:00)
[2023-07-22 12:11] LABS: Alanine Aminotransferase 11 U/L (7-40); Albumin 3.3 g/dL (3.2-4.8); Alkaline Phosphatase 149 U/L (46-116); Anion Gap 28.00001 (5-15); Aspartate Aminotransferase 19 U/L (13-40); BUN/Creatinine Ratio 13.9 (10.0-20.0); Blood Urea Nitrogen 33 mg/dL (9-23); Calcium 7.3 mg/dL (8.5-10.1); Chloride 101 mmol/L (98-107); Potassium 3.6 mmol/L (3.5-5.1); Sodium 139 mmol/L (136-145)
[2023-07-22 12:12] LABS: Bilirubin, Total 0.2 mg/dL (0.2-1.0); Total Protein 5.1 g/dL (5.7-8.2)
[2023-07-22 12:13] LABS: Free T3 1.24 pg/mL (2.3-4.2)
[2023-07-22 12:18] LABS: Carbon Dioxide < 10 mmol/L (20-30); Glucose 490 mg/dL (74-106)
[2023-07-22 12:31] LABS: Base Excess -17.2 mmol/L (-2.0-2.0)
[2023-07-22 12:38] LABS: Creatinine, Urine 47.88 mg/dL (30.0-125.0)
[2023-07-22] MEDS: fentaNYL Drip 2500mCg/250mlNS 250 ML IV SCH (13:33)
[2023-07-22 13:39] LABS: Base Excess -16.1 mmol/L (-2.0-2.0)
[2023-07-22] MEDS: CEFEPIME 2GM/50ML 50 ML IV SCH (14:38)
[2023-07-22] MEDS ORDERED: SODIUM CHLORIDE 0.9% 1,000 ML IV SCH (16:00)
[2023-07-22] MEDS: D5W/SOD CHLO 0.9% 1,000 ML IV SCH (17:30)
[2023-07-22 20:15] LABS: Potassium 3.8 mmol/L (3.5-5.1)
[2023-07-22 20:16] LABS: Anion Gap 9 (5-15); Calcium 7.3 mg/dL (8.7-10.4); Carbon Dioxide 22 mmol/L (20-30)
[2023-07-22 20:21] LABS: BUN/Creatinine Ratio 16.2 (10.0-20.0); Blood Urea Nitrogen 30 mg/dL (9-23); Glucose 211 mg/dL (74-106)
[2023-07-22 20:23] LABS: Chloride 115 mmol/L (98-107); Sodium 146 mmol/L (136-145)
[2023-07-22] MEDS: ATORVASTATIN 20 MG TAB PO SCH (22:10)
[2023-07-22 22:12] LABS: Chloride 116 mmol/L (98-107); Potassium 3.8 mmol/L (3.5-5.1); Sodium 146 mmol/L (136-145)
[2023-07-22 22:13] LABS: Anion Gap 6 (5-15); Carbon Dioxide 24 mmol/L (20-30)
[2023-07-22 22:14] LABS: Calcium 7.3 mg/dL (8.7-10.4)
[2023-07-22 22:18] LABS: BUN/Creatinine Ratio 17.2 (10.0-20.0); Blood Urea Nitrogen 30 mg/dL (9-23); Glucose 205 mg/dL (74-106)
[2023-07-23] VITALS (72 sets, daily range): BP systolic 94–175; BP diastolic 58–96; PULSE 67–111; RESP 14–26; TEMP 97.3–98.4; O2SAT 97–100
[2023-07-23] MEDS: ACCU-CHEK COMFORT CURVE STRIP VI SCH (00:10)
[2023-07-23] MEDS: InsuLIN REG 1unit/0.01ml Soln (100units/ml) SC SCH (00:17)
[2023-07-23 04:19] LABS: Basophils # (auto) 0 10 ^3/uL (0-0.2); Eosinophils # (auto) 0 10 ^3/uL (0-0.8); Eosinophils % (auto) 0.3 % (0.0-7.0); Hemoglobin 10.5 g/dL (12.2-16.2)
[2023-07-23 04:23] LABS: Basophils % (auto) 0.3 % (0.0-2.0); Hematocrit 32.4 % (36.0-46.0); Mean Corpuscular Hemoglobin 25.3 pg (28.0-32.0); Mean Corpuscular Hgb Conc. 32.3 g/dL (32.0-36.0); Mean Corpuscular Volume 78.4 fL (80.0-100.0); Monocytes # (auto) 0.8 10 ^3/uL (0-1.3); Neutrophils # (auto) 7.8 10 ^3/uL (1.6-8.6); Neutrophils % (auto) 81.4 % (37.0-80.0); Red Blood Cells 4.13 10^6/uL (4.0-5.20); White Blood Cell 9.6 10^3/uL (4.4-10.8)
[2023-07-23 04:40] LABS: Alanine Aminotransferase 13 U/L (7-40); Albumin 2.8 g/dL (3.2-4.8); Alkaline Phosphatase 107 U/L (46-116); Anion Gap 7 (5-15); Aspartate Aminotransferase 16 U/L (13-40); BUN/Creatinine Ratio 17.1 (10.0-20.0); Bilirubin, Total 0.2 mg/dL (0.2-1.0); Blood Urea Nitrogen 22 mg/dL (9-23); Calcium 7.4 mg/dL (8.7-10.4); Carbon Dioxide 23 mmol/L (20-30); Chloride 119 mmol/L (98-107); Glucose 97 mg/dL (74-106); Potassium 3.2 mmol/L (3.5-5.1); Red Cell Distribution Width 20.9 % (11.8-14.3); Sodium 149 mmol/L (136-145); Total Protein 4.8 g/dL (5.7-8.2)
[2023-07-23 07:29] LABS: Base Excess -6.2 mmol/L (-2.0-2.0)
[2023-07-23] MEDS: POTASSIUM CHL 20MEQ/100ML 100 ML IV SCH (09:45)
[2023-07-23] MEDS ORDERED: LEVOTHYROXINE SODIUM 100 MCG/5 ML INJ IV SCH (10:00)
[2023-07-23] MEDS: INSULIN LANTUS (GLARGINE) 1 /0.01ml (100units/ml) SC SCH ×2 (11:01→23:06)
[2023-07-23] MEDS: SOD CHL 0.45% 1,000 ML IV SCH (11:29)
[2023-07-23] MEDS: cefTRIAXone 1GM/50ML D5W 50 ML IV ONE (11:41)
[2023-07-23] MEDS ORDERED: Glucerna 1.2 Cal 1Liter BOTTLE GT SCH (12:30)
[2023-07-23] MEDS ORDERED: LEVO125T7 PO (15:13)
[2023-07-23] MEDS ORDERED: TIZA1TAB20 PO (15:22)
[2023-07-23] MEDS ORDERED: MET25T PO (15:22)
[2023-07-23] MEDS ORDERED: PANT40TA2 PO (15:22)
[2023-07-23] MEDS ORDERED: DULO60CA41 PO (15:22)
[2023-07-23] MEDS ORDERED: LOSA-534 PO (15:22)
[2023-07-23] MEDS ORDERED: DOCU-94 PO (15:22)
[2023-07-23] MEDS ORDERED: APIX5TAB PO (15:22)
[2023-07-23] MEDS ORDERED: METH-1181 PO (15:22)
[2023-07-23] MEDS ORDERED: EMPA1TAB PO (15:22)
[2023-07-23] MEDS: hydrALAZINE HCL 20 MG/ML VL IV PRN (15:36)
[2023-07-23 17:35] LABS: Chloride 118 mmol/L (98-107); Potassium 4.1 mmol/L (3.5-5.1); Sodium 147 mmol/L (136-145)
[2023-07-23 17:36] LABS: Anion Gap 11 (5-15); Calcium 8.4 mg/dL (8.7-10.4); Carbon Dioxide 18 mmol/L (20-30)
[2023-07-23 17:41] LABS: BUN/Creatinine Ratio 21.4 (10.0-20.0); Blood Urea Nitrogen 21 mg/dL (9-23); Glucose 197 mg/dL (74-106)
[2023-07-23 20:36] LABS: Chloride 115 mmol/L (98-107); Potassium 4.1 mmol/L (3.5-5.1); Sodium 147 mmol/L (136-145)
[2023-07-23 20:37] LABS: Anion Gap 17 (5-15); Carbon Dioxide 15 mmol/L (20-30)
[2023-07-23 20:38] LABS: Calcium 8.4 mg/dL (8.5-10.1)
[2023-07-23 20:42] LABS: BUN/Creatinine Ratio 20.2 (10.0-20.0); Blood Urea Nitrogen 21 mg/dL (9-23); Glucose 300 mg/dL (74-106)
[2023-07-24] VITALS (93 sets, daily range): BP systolic 107–196; BP diastolic 56–105; PULSE 66–133; RESP 12–33; TEMP 97.2–99.1; O2SAT 97–100
[2023-07-24 05:58] LABS: Basophils # (auto) 0 10 ^3/uL (0-0.2); Eosinophils # (auto) 0 10 ^3/uL (0-0.8); Neutrophils # (auto) 6.3 10 ^3/uL (1.6-8.6); White Blood Cell 8.4 10^3/uL (4.4-10.8)
[2023-07-24 06:00] LABS: Basophils % (auto) 0.3 % (0.0-2.0); Eosinophils % (auto) 0.1 % (0.0-7.0); Hematocrit 33.6 % (36.0-46.0); Hemoglobin 10.7 g/dL (12.2-16.2); Lymphocytes # (auto) 1.4 10 ^3/uL (0.4-5.4); Lymphocytes % (auto) 17.2 % (10.0-50.0); Mean Corpuscular Hemoglobin 25.1 pg (28.0-32.0); Mean Corpuscular Hgb Conc. 31.8 g/dL (32.0-36.0); Mean Corpuscular Volume 78.9 fL (80.0-100.0); Monocytes # (auto) 0.6 10 ^3/uL (0-1.3); Monocytes % (auto) 7.1 % (0.0-12.0); Neutrophils % (auto) 75.3 % (37.0-80.0); Red Blood Cells 4.26 10^6/uL (4.0-5.20)
[2023-07-24 06:03] LABS: Red Cell Distribution Width 21.8 % (11.8-14.3)
[2023-07-24 06:07] LABS: Calcium 8.6 mg/dL (8.7-10.4); Chloride 118 mmol/L (98-107); Potassium 3.8 mmol/L (3.5-5.1); Sodium 148 mmol/L (136-145)
[2023-07-24 06:08] LABS: Anion Gap 9 (5-15); Carbon Dioxide 21 mmol/L (20-30)
[2023-07-24 06:13] LABS: BUN/Creatinine Ratio 15.6 (10.0-20.0); Blood Urea Nitrogen 15 mg/dL (9-23); Glucose 148 mg/dL (74-106)
[2023-07-24] MEDS: LEVOTHYROXINE SODIUM 100 MCG TAB PO SCH (06:31)
[2023-07-24] MEDS: cefTRIAXone 1GM/50ML D5W 50 ML IV SCH (08:17)
[2023-07-24] MEDS ORDERED: cefTRIAXone 1GM/50ML D5W 50 ML IV SCH (09:00)
[2023-07-24] MEDS ORDERED: METOPROLOL TARTRATE 1MG/1ML-5ML VIAL IV PRN ×2 (10:00)
[2023-07-24] MEDS ORDERED: LABETALOL HCL 5 MG/ML 4ML SYRINGE IV PRN (10:15)
[2023-07-24] MEDS: DexmedeTOMIDine 200 MCG in D5W 5% 48 ML IV SCH (10:21)
[2023-07-24] MEDS: METOPROLOL TARTRATE 25 MG TAB PO ONE (11:10)
[2023-07-24] MEDS: FREE WATER GT SCH (12:32)
[2023-07-24] MEDS: LABETALOL HCL 5 MG/ML 4ML SYRINGE IV PRN (18:39)
[2023-07-24] MEDS: METOPROLOL TARTRATE 25 MG TAB PO SCH (21:36)
[2023-07-25] VITALS (108 sets, daily range): BP systolic 97–195; BP diastolic 51–130; PULSE 59–129; RESP 11–34; TEMP 96.8–99.7; O2SAT 91–100
[2023-07-25 06:16] LABS: Basophils # (auto) 0 10 ^3/uL (0-0.2); Eosinophils # (auto) 0.1 10 ^3/uL (0-0.8); Lymphocytes # (auto) 0.7 10 ^3/uL (0.4-5.4); Monocytes # (auto) 0.3 10 ^3/uL (0-1.3); Neutrophils # (auto) 3.9 10 ^3/uL (1.6-8.6); Nucleated Red Blood Cells % 0.1 %
[2023-07-25 06:18] LABS: Basophils % (auto) 0.4 % (0.0-2.0); Eosinophils % (auto) 1.8 % (0.0-7.0); Hematocrit 30.1 % (36.0-46.0); Hemoglobin 9.6 g/dL (12.2-16.2); Lymphocytes % (auto) 13.4 % (10.0-50.0); Mean Corpuscular Hemoglobin 25.5 pg (28.0-32.0); Mean Corpuscular Hgb Conc. 31.7 g/dL (32.0-36.0); Mean Corpuscular Volume 80.3 fL (80.0-100.0); Monocytes % (auto) 6.3 % (0.0-12.0); Neutrophils % (auto) 78.1 % (37.0-80.0); Red Blood Cells 3.75 10^6/uL (4.0-5.20)
[2023-07-25 06:20] LABS: Red Cell Distribution Width 22.2 % (11.8-14.3)
[2023-07-25 06:21] LABS: Chloride 113 mmol/L (98-107); Potassium 3.4 mmol/L (3.5-5.1); Sodium 145 mmol/L (136-145)
[2023-07-25 06:22] LABS: Anion Gap 8 (5-15); Carbon Dioxide 24 mmol/L (20-30)
[2023-07-25 06:23] LABS: Calcium 8.3 mg/dL (8.5-10.1)
[2023-07-25 06:27] LABS: BUN/Creatinine Ratio 16.1 (10.0-20.0); Blood Urea Nitrogen 9 mg/dL (9-23); Glucose 112 mg/dL (74-106)
[2023-07-25] MEDS: ENOXAPARIN SOD 40 MG/0.4 ML SYRINGE SC SCH (07:29)
[2023-07-25 09:32] LABS: Base Excess -3.4 mmol/L (-2.0-2.0)
[2023-07-25] MEDS ORDERED: LABETALOL INJECTION 250 MG in SODIUM CHL 0.9% 200 ML IV ONE (10:15)
[2023-07-25] MEDS: PROPOFOL 100 ML IV SCH (10:21)
[2023-07-25] MEDS: POTASSIUM CHL 20MEQ/100ML 100 ML IV SCH (12:51)
[2023-07-25] MEDS: SOD CHL 0.45% 1,000 ML IV SCH (15:07)
[2023-07-25] MEDS: LABETALOL INJECTION 250 MG in SODIUM CHL 0.9% 200 ML IV SCH (19:37)
[2023-07-26] VITALS (94 sets, daily range): BP systolic 86–194; BP diastolic 42–116; PULSE 55–98; RESP 11–26; TEMP 97.5–99.9; O2SAT 94–100
[2023-07-26 06:08] LABS: Basophils # (auto) 0 10 ^3/uL (0-0.2); Eosinophils # (auto) 0.2 10 ^3/uL (0-0.8); Hemoglobin 9.9 g/dL (12.2-16.2); Lymphocytes # (auto) 0.8 10 ^3/uL (0.4-5.4); Mean Corpuscular Hemoglobin 25.4 pg (28.0-32.0); Mean Corpuscular Hgb Conc. 30.6 g/dL (32.0-36.0); Mean Corpuscular Volume 83.1 fL (80.0-100.0); Neutrophils # (auto) 4.8 10 ^3/uL (1.6-8.6); Nucleated Red Blood Cells % 0.1 %; White Blood Cell 6.2 10^3/uL (4.4-10.8)
[2023-07-26 06:11] LABS: Basophils % (auto) 0.2 % (0.0-2.0); Eosinophils % (auto) 2.7 % (0.0-7.0); Hematocrit 32.2 % (36.0-46.0); Lymphocytes % (auto) 12.4 % (10.0-50.0); Monocytes # (auto) 0.4 10 ^3/uL (0-1.3); Monocytes % (auto) 6.8 % (0.0-12.0); Neutrophils % (auto) 77.9 % (37.0-80.0); Red Blood Cells 3.88 10^6/uL (4.0-5.20)
[2023-07-26 06:18] LABS: Anion Gap 13 (5-15); Carbon Dioxide 19 mmol/L (20-30); Chloride 109 mmol/L (98-107); Potassium 3.9 mmol/L (3.5-5.1); Red Cell Distribution Width 22.9 % (11.8-14.3); Sodium 141 mmol/L (136-145)
[2023-07-26 06:20] LABS: Calcium 8.3 mg/dL (8.5-10.1)
[2023-07-26 06:24] LABS: BUN/Creatinine Ratio 9.1 (10.0-20.0); Blood Urea Nitrogen 5 mg/dL (9-23); Glucose 132 mg/dL (74-106)
[2023-07-26 07:20] LABS: Base Excess -6.9 mmol/L (-2.0-2.0)
[2023-07-27] VITALS (61 sets, daily range): BP systolic 81–171; BP diastolic 45–99; PULSE 62–94; RESP 13–26; TEMP 95.4–100.2; O2SAT 91–100
[2023-07-27 05:01] LABS: Basophils # (auto) 0 10 ^3/uL (0-0.2); Basophils % (auto) 0.2 % (0.0-2.0); Eosinophils # (auto) 0.1 10 ^3/uL (0-0.8); Hemoglobin 10.9 g/dL (12.2-16.2); Monocytes # (auto) 0.7 10 ^3/uL (0-1.3); Neutrophils # (auto) 6.1 10 ^3/uL (1.6-8.6); Neutrophils % (auto) 77.9 % (37.0-80.0); White Blood Cell 7.8 10^3/uL (4.4-10.8)
[2023-07-27 05:05] LABS: Eosinophils % (auto) 1.2 % (0.0-7.0); Hematocrit 34.6 % (36.0-46.0); Lymphocytes # (auto) 0.9 10 ^3/uL (0.4-5.4); Lymphocytes % (auto) 12.1 % (10.0-50.0); Mean Corpuscular Hemoglobin 24.9 pg (28.0-32.0); Mean Corpuscular Hgb Conc. 31.5 g/dL (32.0-36.0); Mean Corpuscular Volume 78.9 fL (80.0-100.0); Monocytes % (auto) 8.6 % (0.0-12.0); Red Blood Cells 4.38 10^6/uL (4.0-5.20); Red Cell Distribution Width 22.4 % (11.8-14.3)
[2023-07-27 05:13] LABS: Chloride 107 mmol/L (98-107); Potassium 3.5 mmol/L (3.5-5.1); Sodium 140 mmol/L (136-145)
[2023-07-27 05:14] LABS: Anion Gap 13 (5-15); Calcium 8.7 mg/dL (8.7-10.4); Carbon Dioxide 20 mmol/L (20-30)
[2023-07-27 05:19] LABS: BUN/Creatinine Ratio 9.5 (10.0-20.0); Blood Urea Nitrogen 6 mg/dL (9-23); Glucose 113 mg/dL (74-106)
[2023-07-27] MEDS: levETIRAcetam 1000 mg/100ml 100 ML IV SCH (07:47)
[2023-07-27 08:18] LABS: Base Excess -4.9 mmol/L (-2.0-2.0)
[2023-07-27 09:44] LABS: Base Excess -6.5 mmol/L (-2.0-2.0)
[2023-07-27] MEDS: InsuLIN REG 1unit/0.01ml Soln (100units/ml) SC SCH (16:00)
[2023-07-27] MEDS: ACCU-CHEK COMFORT CURVE STRIP VI SCH (16:00)
[2023-07-27] MEDS: ACETAMINOPHEN 650 mg PER 20.3 mL UD NG PRN (18:16)
[2023-07-28] VITALS (22 sets, daily range): BP systolic 113–169; BP diastolic 60–91; PULSE 71–96; RESP 9–26; TEMP 98–99.3; O2SAT 96–100
[2023-07-28 05:39] LABS: Basophils # (auto) 0 10 ^3/uL (0-0.2); Basophils % (auto) 0.3 % (0.0-2.0); Eosinophils # (auto) 0.1 10 ^3/uL (0-0.8); Hemoglobin 10.9 g/dL (12.2-16.2); Monocytes # (auto) 0.9 10 ^3/uL (0-1.3); Neutrophils # (auto) 5.8 10 ^3/uL (1.6-8.6)
[2023-07-28 05:42] LABS: Chloride 106 mmol/L (98-107); Eosinophils % (auto) 1.3 % (0.0-7.0); Hematocrit 34.5 % (36.0-46.0); Lymphocytes # (auto) 1.2 10 ^3/uL (0.4-5.4); Lymphocytes % (auto) 14.4 % (10.0-50.0); Mean Corpuscular Hemoglobin 25.1 pg (28.0-32.0); Mean Corpuscular Hgb Conc. 31.6 g/dL (32.0-36.0); Mean Corpuscular Volume 79.4 fL (80.0-100.0); Monocytes % (auto) 11.3 % (0.0-12.0); Neutrophils % (auto) 72.7 % (37.0-80.0); Potassium 3.5 mmol/L (3.5-5.1); Red Blood Cells 4.35 10^6/uL (4.0-5.20); Sodium 143 mmol/L (136-145)
[2023-07-28 05:43] LABS: Anion Gap 22 (5-15); Calcium 8.7 mg/dL (8.5-10.1); Carbon Dioxide 15 mmol/L (20-30)
[2023-07-28 05:48] LABS: BUN/Creatinine Ratio 9.6 (10.0-20.0); Blood Urea Nitrogen 7 mg/dL (9-23); Glucose 170 mg/dL (74-106)
[2023-07-28 05:52] LABS: Red Cell Distribution Width 22.7 % (11.8-14.3)
[2023-07-29] VITALS (8 sets, daily range): BP systolic 138–173; BP diastolic 77–96; PULSE 76–90; RESP 16–21; TEMP 97.1–98.6; O2SAT 2–100
[2023-07-29 07:00] LABS: Basophils # (auto) 0 10 ^3/uL (0-0.2); Eosinophils # (auto) 0.1 10 ^3/uL (0-0.8); Nucleated Red Blood Cells % 0.1 %
[2023-07-29 07:02] LABS: Basophils % (auto) 0.5 % (0.0-2.0); Eosinophils % (auto) 2.5 % (0.0-7.0); Hematocrit 34.4 % (36.0-46.0); Hemoglobin 10.9 g/dL (12.2-16.2); Lymphocytes # (auto) 1.1 10 ^3/uL (0.4-5.4); Lymphocytes % (auto) 19.5 % (10.0-50.0); Mean Corpuscular Hemoglobin 24.9 pg (28.0-32.0); Mean Corpuscular Hgb Conc. 31.6 g/dL (32.0-36.0); Mean Corpuscular Volume 78.8 fL (80.0-100.0); Monocytes # (auto) 0.6 10 ^3/uL (0-1.3); Monocytes % (auto) 10.4 % (0.0-12.0); Neutrophils % (auto) 67.1 % (37.0-80.0); Red Blood Cells 4.36 10^6/uL (4.0-5.20); Red Cell Distribution Width 22.8 % (11.8-14.3); White Blood Cell 5.9 10^3/uL (4.4-10.8)
[2023-07-29 07:20] LABS: Chloride 109 mmol/L (98-107); Sodium 146 mmol/L (136-145)
[2023-07-29 07:21] LABS: Anion Gap 18 (5-15); Calcium 8.5 mg/dL (8.5-10.1); Carbon Dioxide 19 mmol/L (20-30)
[2023-07-29 07:26] LABS: BUN/Creatinine Ratio 9.7 (10.0-20.0); Blood Urea Nitrogen 7 mg/dL (9-23); Glucose 158 mg/dL (74-106)
[2023-07-29] MEDS: POTASSIUM CHL 20MEQ/100ML 100 ML IV SCH (09:14)
[2023-07-29] MEDS: D5W 5% 1,000 ML IV ONE (16:57)
[2023-07-29] MEDS: METOPROLOL TARTRATE 25 MG TAB NG SCH (22:00)
[2023-07-29] MEDS: ATORVASTATIN 20 MG TAB NG SCH (22:00)
[2023-07-30] VITALS (10 sets, daily range): BP systolic 102–170; BP diastolic 60–96; PULSE 79–137; RESP 16–20; TEMP 97–99.7; O2SAT 2–100
[2023-07-30] MEDS: LEVOTHYROXINE SODIUM 100 MCG TAB NG SCH (05:41)
[2023-07-30] MEDS ORDERED: CLINIMIX PER PHARMACY 0 ML IV SCH (09:00)
[2023-07-30 10:45] LABS: Basophils # (auto) 0 10 ^3/uL (0-0.2); Hemoglobin 11.3 g/dL (12.2-16.2); Monocytes # (auto) 0.8 10 ^3/uL (0-1.3)
[2023-07-30 10:48] LABS: Basophils % (auto) 0.3 % (0.0-2.0); Eosinophils # (auto) 0.2 10 ^3/uL (0-0.8); Eosinophils % (auto) 2.5 % (0.0-7.0); Hematocrit 35.8 % (36.0-46.0); Lymphocytes % (auto) 13.8 % (10.0-50.0); Mean Corpuscular Hemoglobin 25.1 pg (28.0-32.0); Mean Corpuscular Hgb Conc. 31.7 g/dL (32.0-36.0); Monocytes % (auto) 11.8 % (0.0-12.0); Neutrophils % (auto) 71.6 % (37.0-80.0); Nucleated Red Blood Cells % 0.1 %; Red Blood Cells 4.53 10^6/uL (4.0-5.20)
[2023-07-30 10:53] LABS: Chloride 104 mmol/L (98-107); Potassium 3.3 mmol/L (3.5-5.1); Sodium 142 mmol/L (136-145)
[2023-07-30 10:54] LABS: Anion Gap 8 (5-15); Calcium 8.6 mg/dL (8.5-10.1); Carbon Dioxide 30 mmol/L (20-30)
[2023-07-30 10:59] LABS: Glucose 119 mg/dL (74-106)
[2023-07-30 11:03] LABS: BUN/Creatinine Ratio 7.8 (10.0-20.0); Blood Urea Nitrogen < 5 mg/dL (9-23)
[2023-07-30] MEDS ORDERED: POTASSIUM CHL 20MEQ/100ML 100 ML IV SCH (11:30)
[2023-07-30] MEDS: InsuLIN REG 1unit/0.01ml Soln (100units/ml) SC SCH (11:55)
[2023-07-30] MEDS: ACCU-CHEK COMFORT CURVE STRIP VI SCH (11:55)
[2023-07-30 12:15] LABS: Magnesium 1.4 mg/dL (1.6-2.6)
[2023-07-30 12:16] LABS: Phosphorus 1.4 mg/dL (2.4-5.1)
[2023-07-30] MEDS: POTASSIUM PHOSPHATE 44 MEQ in D5W 5% 250 ML IV ONE (14:32)
[2023-07-30] MEDS: MAGNESIUM SULFATE 1GM/100ML 100 ML IV SCH (15:00)
[2023-07-30] MEDS: LORazepam 2MG/ML-1ML VIAL IV PRN (18:42)
[2023-07-30 18:44] LABS: Base Excess -11.4 mmol/L (-2.0-2.0)
[2023-07-30] MEDS: ACETAMINOPHEN 650 MG RECT SUPP PR ONE (18:55)
[2023-07-30] MEDS: ACETAMINOPHEN 650 MG RECT SUPP PR PRN (19:10)
[2023-07-30] MEDS: MAGNESIUM SULFATE 1GM/100ML 100 ML IV ONE (19:40)
[2023-07-30] MEDS: levETIRAcetam 500 mg/100ml 100 ML IV ONE (21:13)
[2023-07-30] MEDS: VALPROATE INJ 1,000 MG in SODIUM CHL 0.9% 100 ML IV ONE (22:10)
[2023-07-30] MEDS: AMINO ACID INFUSION IN D5W 1,000 ML IV SCH (22:19)
[2023-07-31] VITALS (16 sets, daily range): BP systolic 102–161; BP diastolic 48–88; PULSE 66–117; RESP 18–22; TEMP 95.1–100.1; O2SAT 91–100
[2023-07-31] MEDS: MAGNESIUM SULFATE 1GM/100ML 100 ML IV SCH ×2 (00:38→00:39)
[2023-07-31] MEDS: VALPROATE INJ 500 MG in SODIUM CHL 0.9% 100 ML IV SCH (05:15)
[2023-07-31 06:21] LABS: Basophils # (auto) 0 10 ^3/uL (0-0.2); Eosinophils # (auto) 0.1 10 ^3/uL (0-0.8); Hemoglobin 9.8 g/dL (12.2-16.2); Lymphocytes # (auto) 1.4 10 ^3/uL (0.4-5.4); Monocytes # (auto) 0.5 10 ^3/uL (0-1.3); Neutrophils # (auto) 4.6 10 ^3/uL (1.6-8.6); Nucleated Red Blood Cells % 0.1 %
[2023-07-31 06:32] LABS: Basophils % (auto) 0.2 % (0.0-2.0); Eosinophils % (auto) 0.8 % (0.0-7.0); Lymphocytes % (auto) 20.7 % (10.0-50.0); Mean Corpuscular Hemoglobin 25.3 pg (28.0-32.0); Mean Corpuscular Hgb Conc. 31.6 g/dL (32.0-36.0); Mean Corpuscular Volume 80.1 fL (80.0-100.0); Monocytes % (auto) 7.3 % (0.0-12.0); Red Blood Cells 3.86 10^6/uL (4.0-5.20); White Blood Cell 6.5 10^3/uL (4.4-10.8)
[2023-07-31 06:33] LABS: Red Cell Distribution Width 22.3 % (11.8-14.3)
[2023-07-31 06:41] LABS: Alanine Aminotransferase 12 U/L (7-40); Albumin 2.9 g/dL (3.2-4.8); Alkaline Phosphatase 93 U/L (46-116); Anion Gap 8 (5-15); Aspartate Aminotransferase 19 U/L (13-40); Calcium 8.2 mg/dL (8.5-10.1); Carbon Dioxide 29 mmol/L (20-30); Chloride 103 mmol/L (98-107); Glucose 162 mg/dL (74-106); Potassium 3.2 mmol/L (3.5-5.1); Sodium 140 mmol/L (136-145)
[2023-07-31 06:42] LABS: Bilirubin, Total 0.2 mg/dL (0.2-1.0)
[2023-07-31 06:48] LABS: BUN/Creatinine Ratio 10.6 (10.0-20.0); Blood Urea Nitrogen < 5 mg/dL (9-23)
[2023-07-31 07:03] LABS: Magnesium 2.2 mg/dL (1.6-2.6)
[2023-07-31] MEDS: POTASSIUM CHL 20MEQ/100ML 100 ML IV SCH (09:53)
[2023-07-31] MEDS ORDERED: levETIRAcetam 1500 mg/100ml 100 ML IV SCH (10:00)
[2023-07-31] MEDS: MORPHINE SULFATE INJ 2 MG/ml SYRG IV PRN (10:23)
[2023-07-31] MEDS: levETIRAcetam 1000 mg/100ml 100 ML IV SCH (10:33)
[2023-07-31] MEDS: LORazepam 2MG/ML-1ML VIAL IV PRN (12:01)
[2023-07-31] MEDS ORDERED: CARBIDOPA W LEVODOPA 25/100mg TABLET PO SCH (14:00)
[2023-07-31] MEDS ORDERED: TOPIRAMATE 100 MG TAB NG ONE (15:00)
[2023-07-31] MEDS: BACLOFEN 10 MG TAB NG ONE (16:39)
[2023-07-31] MEDS ORDERED: TOPIRAMATE 100 MG TAB PO SCH (22:00)
[2023-07-31] MEDS ORDERED: BACLOFEN 10 MG TAB PO SCH (22:00)
[2023-07-31] MEDS: METHOCARBAMOL 500 MG TAB PO SCH (22:30)
[2023-07-31] MEDS: BACLOFEN 10 MG TAB NG SCH (22:31)
[2023-07-31] MEDS: OXYCODONE W/ ACETAMINOPHEN 5/325MG TABLET PO ONE (22:32)
[2023-07-31] MEDS: CARBIDOPA W LEVODOPA 25/100mg TABLET NG SCH (22:32)
[2023-08-01] VITALS (58 sets, daily range): BP systolic 80–164; BP diastolic 52–84; PULSE 71–87; RESP 13–20; TEMP 97.4–98.2; O2SAT 93–100
[2023-08-01] MEDS: DEXTROSE (50%) 50ML SYRG IV SCH (05:53)
[2023-08-01 06:27] LABS: Chloride 106 mmol/L (98-107); Potassium 3.2 mmol/L (3.5-5.1); Sodium 142 mmol/L (136-145)
[2023-08-01 06:28] LABS: Anion Gap 6 (5-15); Calcium 8.5 mg/dL (8.7-10.4); Carbon Dioxide 30 mmol/L (20-30)
[2023-08-01 06:33] LABS: BUN/Creatinine Ratio 12.2 (10.0-20.0); Blood Urea Nitrogen 6 mg/dL (9-23); Glucose 61 mg/dL (74-106)
[2023-08-01 06:34] LABS: Magnesium 1.8 mg/dL (1.6-2.6)
[2023-08-01 07:05] LABS: Basophils # (auto) 0 10 ^3/uL (0-0.2); Basophils % (auto) 0.5 % (0.0-2.0); Eosinophils # (auto) 0.1 10 ^3/uL (0-0.8); Hemoglobin 10.3 g/dL (12.2-16.2); Lymphocytes # (auto) 1.4 10 ^3/uL (0.4-5.4); Monocytes # (auto) 0.4 10 ^3/uL (0-1.3); Monocytes % (auto) 6.1 % (0.0-12.0); Red Blood Cells 4.09 10^6/uL (4.0-5.20)
[2023-08-01 07:09] LABS: Phosphorus 2.6 mg/dL (2.4-5.1)
[2023-08-01 07:13] LABS: Eosinophils % (auto) 1.4 % (0.0-7.0); Hematocrit 32.7 % (36.0-46.0); Lymphocytes % (auto) 20.6 % (10.0-50.0); Mean Corpuscular Hemoglobin 25.1 pg (28.0-32.0); Mean Corpuscular Hgb Conc. 31.5 g/dL (32.0-36.0); Mean Corpuscular Volume 79.9 fL (80.0-100.0); Neutrophils # (auto) 4.8 10 ^3/uL (1.6-8.6); Neutrophils % (auto) 71.4 % (37.0-80.0); Nucleated Red Blood Cells % 0.1 %; White Blood Cell 6.7 10^3/uL (4.4-10.8)
[2023-08-01 08:13] LABS: Red Cell Distribution Width 21.3 % (11.8-14.3)
[2023-08-01] MEDS: ROCURONIUM 10MG/ML 10ML VIAL IV ONE (09:34)
[2023-08-01] MEDS: ETOMIDATE (2MG/ML) 20ML VIAL IV ONE (09:34)
[2023-08-01] MEDS: fentaNYL Drip 2500mCg/250mlNS 250 ML IV ONE (09:35)
[2023-08-01] MEDS: MIDAZOLAM DRIP 50 mg/50mL 50 ML IV ONE (09:36)
[2023-08-01] MEDS ORDERED: LIDOCAINE 2%HCL (LOCAL ANESTH.) INJ 20ML MDV ONE (09:45)
[2023-08-01] MEDS ORDERED: LIDOCAINE 2% JELLY 11ml (GLYDO) ONE (09:45)
[2023-08-01] MEDS ORDERED: MIDAZOLAM HCL 5 MG/ML-1ML VIAL ONE (09:45)
[2023-08-01] MEDS ORDERED: SODIUM CHLORIDE LOCK 10 ML ONE (09:45)
[2023-08-01] MEDS ORDERED: fentaNYL CITRATE 100 MCG/2 ML VL ONE (09:46)
[2023-08-01] MEDS ORDERED: diphenhdrAMINE HCL 50 MG/1 ML VL ONE (09:46)
[2023-08-01] MEDS ORDERED: FLUMAZENIL 0.1 MG/ML INJ 10ML MDV IV ONE (09:46)
[2023-08-01] MEDS ORDERED: NALOXONE HCL 0.4 MG/ML VIAL ONE (09:46)
[2023-08-01] MEDS: NOREPINEPHRINE 8 MG/250ML KIT 250 ML IV ONE (09:50)
[2023-08-01] MEDS: fentaNYL Drip 2500mCg/250mlNS 250 ML IV SCH (11:26)
[2023-08-01] MEDS: MIDAZOLAM DRIP 50 mg/50mL 50 ML IV SCH (11:27)
[2023-08-01] MEDS: POTASSIUM EFFERVESENT TAB 25 MEQ PO ONE (12:25)
[2023-08-01] MEDS: INSULIN LANTUS (GLARGINE) 1 /0.01ml (100units/ml) SC SCH (12:40)
[2023-08-01] MEDS: MAGNESIUM SULFATE 1GM/100ML 100 ML IV ONE (14:22)
[2023-08-01] MEDS: NOREPINEPHRINE 8 MG/250ML KIT 250 ML IV SCH (17:06)
[2023-08-02] VITALS (113 sets, daily range): BP systolic 89–139; BP diastolic 53–88; PULSE 65–89; RESP 13–27; TEMP 97.8–98.7; O2SAT 94–100
[2023-08-02 04:42] LABS: Albumin 2.9 g/dL (3.2-4.8); Alkaline Phosphatase 91 U/L (46-116); Anion Gap 6 (5-15); Aspartate Aminotransferase 11 U/L (13-40); BUN/Creatinine Ratio 20.4 (10.0-20.0); Blood Urea Nitrogen 10 mg/dL (9-23); Calcium 8.4 mg/dL (8.7-10.4); Carbon Dioxide 32 mmol/L (20-30); Chloride 102 mmol/L (98-107); Glucose 136 mg/dL (74-106); Magnesium 1.7 mg/dL (1.6-2.6); Potassium 3.4 mmol/L (3.5-5.1); Sodium 140 mmol/L (136-145)
[2023-08-02 04:43] LABS: Bilirubin, Total 0.4 mg/dL (0.2-1.0); Total Protein 4.8 g/dL (5.7-8.2)
[2023-08-02 04:44] LABS: Alanine Aminotransferase < 9 U/L (7-40)
[2023-08-02 04:59] LABS: Basophils # (auto) 0 10 ^3/uL (0-0.2); Basophils % (auto) 0.1 % (0.0-2.0); Eosinophils # (auto) 0.1 10 ^3/uL (0-0.8); Eosinophils % (auto) 0.9 % (0.0-7.0); Hematocrit 31.2 % (36.0-46.0); Hemoglobin 9.9 g/dL (12.2-16.2); Lymphocytes % (auto) 7.4 % (10.0-50.0); Mean Corpuscular Hemoglobin 25.1 pg (28.0-32.0); Mean Corpuscular Hgb Conc. 31.8 g/dL (32.0-36.0); Mean Corpuscular Volume 79.1 fL (80.0-100.0); Monocytes # (auto) 0.6 10 ^3/uL (0-1.3); Monocytes % (auto) 4.5 % (0.0-12.0); Neutrophils # (auto) 11.6 10 ^3/uL (1.6-8.6); Neutrophils % (auto) 87.1 % (37.0-80.0); Red Blood Cells 3.95 10^6/uL (4.0-5.20); Red Cell Distribution Width 21.8 % (11.8-14.3); White Blood Cell 13.4 10^3/uL (4.4-10.8)
[2023-08-02 05:04] LABS: Phosphorus 1.2 mg/dL (2.4-5.1)
[2023-08-02 08:15] LABS: Base Excess 6.1 mmol/L (-2.0-2.0)
[2023-08-02] MEDS ORDERED: VANCOMYCIN PER PHARMACY 0 MG IV SCH (09:30)
[2023-08-02] MEDS: MAGNESIUM SULFATE 1GM/100ML 100 ML IV ONE (09:54)
[2023-08-02] MEDS: POTASSIUM CHL 20MEQ/100ML 100 ML IV SCH (09:54)
[2023-08-02] MEDS: VANCOMYCIN 750mg/150ml 150 ML IV ONE (10:53)
[2023-08-02] MEDS: CEFEPIME 1GM/ 50ML 50 ML IV ONE (11:35)
[2023-08-02] MEDS: CEFEPIME 1GM/ 50ML 50 ML IV SCH (21:46)
[2023-08-03] VITALS (116 sets, daily range): BP systolic 85–174; BP diastolic 48–96; PULSE 56–103; RESP 11–34; TEMP 96.9–99.2; O2SAT 96–100
[2023-08-03] MEDS: VANCOMYCIN 750mg/150ml 150 ML IV SCH (01:51)
[2023-08-03 03:51] LABS: Basophils # (auto) 0 10 ^3/uL (0-0.2); Eosinophils # (auto) 0.1 10 ^3/uL (0-0.8); Hematocrit 29.7 % (36.0-46.0); Monocytes # (auto) 0.7 10 ^3/uL (0-1.3)
[2023-08-03 03:54] LABS: Basophils % (auto) 0.1 % (0.0-2.0); Eosinophils % (auto) 1.3 % (0.0-7.0); Hemoglobin 9.5 g/dL (12.2-16.2); Lymphocytes % (auto) 8.8 % (10.0-50.0); Mean Corpuscular Hemoglobin 25.4 pg (28.0-32.0); Mean Corpuscular Hgb Conc. 31.9 g/dL (32.0-36.0); Mean Corpuscular Volume 79.6 fL (80.0-100.0); Monocytes % (auto) 6.5 % (0.0-12.0); Neutrophils # (auto) 9.1 10 ^3/uL (1.6-8.6); Neutrophils % (auto) 83.3 % (37.0-80.0); Red Blood Cells 3.74 10^6/uL (4.0-5.20)
[2023-08-03 04:00] LABS: Red Cell Distribution Width 22.2 % (11.8-14.3)
[2023-08-03 04:13] LABS: Albumin 2.8 g/dL (3.2-4.8); Alkaline Phosphatase 105 U/L (46-116); Anion Gap 6 (5-15); Aspartate Aminotransferase 8 U/L (13-40); BUN/Creatinine Ratio 17.4 (10.0-20.0); Blood Urea Nitrogen 8 mg/dL (9-23); Calcium 8.2 mg/dL (8.7-10.4); Carbon Dioxide 30 mmol/L (20-30); Chloride 102 mmol/L (98-107); Glucose 145 mg/dL (74-106); Magnesium 1.7 mg/dL (1.6-2.6); Potassium 3.8 mmol/L (3.5-5.1); Sodium 138 mmol/L (136-145)
[2023-08-03 04:14] LABS: Alanine Aminotransferase < 9 U/L (7-40); Bilirubin, Total 0.3 mg/dL (0.2-1.0); Total Protein 4.9 g/dL (5.7-8.2)
[2023-08-03 05:24] LABS: Phosphorus 1.9 mg/dL (2.4-5.1)
[2023-08-03] MEDS: ALBUTEROL SULF 2.5 MG/0.5ML(0.5%) NEB SOLN NEB PRN (06:10)
[2023-08-03 07:46] LABS: Base Excess 5.8 mmol/L (-2.0-2.0)
[2023-08-03] MEDS: MAGNESIUM SULFATE 1GM/100ML 100 ML IV SCH (12:02)
[2023-08-03] MEDS: EPINEPHrine HCL 0.5 ML NEB ONE (13:31)
[2023-08-03] MEDS: DexAMETHasone SOD PHOS 10MG/1ML VIAL INJ IV ONE (13:56)
[2023-08-03 18:06] LABS: Base Excess 6.5 mmol/L (-2.0-2.0)
[2023-08-03] MEDS: D5W 5% 1,000 ML IV SCH (18:15)
[2023-08-03 19:17] LABS: Chloride 104 mmol/L (98-107); Potassium 3.4 mmol/L (3.5-5.1); Sodium 142 mmol/L (136-145)
[2023-08-03 19:18] LABS: Anion Gap 6 (5-15); Calcium 8.4 mg/dL (8.7-10.4); Carbon Dioxide 32 mmol/L (20-30)
[2023-08-03 19:23] LABS: BUN/Creatinine Ratio 11.3 (10.0-20.0); Blood Urea Nitrogen 6 mg/dL (9-23); Glucose 165 mg/dL (74-106)
[2023-08-04] VITALS (102 sets, daily range): BP systolic 100–182; BP diastolic 55–97; PULSE 67–109; RESP 9–27; TEMP 97.3–98.4; O2SAT 93–100
[2023-08-04 08:32] LABS: Basophils # (auto) 0 10 ^3/uL (0-0.2); Eosinophils # (auto) 0 10 ^3/uL (0-0.8); Eosinophils % (auto) 0.1 % (0.0-7.0); Lymphocytes # (auto) 0.9 10 ^3/uL (0.4-5.4); Monocytes # (auto) 0.4 10 ^3/uL (0-1.3); White Blood Cell 7.9 10^3/uL (4.4-10.8)
[2023-08-04 08:34] LABS: Basophils % (auto) 0.1 % (0.0-2.0); Hematocrit 29.8 % (36.0-46.0); Hemoglobin 9.6 g/dL (12.2-16.2); Lymphocytes % (auto) 11.6 % (10.0-50.0); Mean Corpuscular Hemoglobin 25.5 pg (28.0-32.0); Mean Corpuscular Hgb Conc. 32.3 g/dL (32.0-36.0); Monocytes % (auto) 5.4 % (0.0-12.0); Neutrophils # (auto) 6.6 10 ^3/uL (1.6-8.6); Neutrophils % (auto) 82.8 % (37.0-80.0); Nucleated Red Blood Cells % 0.1 %; Red Blood Cells 3.77 10^6/uL (4.0-5.20); Red Cell Distribution Width 22.2 % (11.8-14.3)
[2023-08-04 08:42] LABS: Chloride 104 mmol/L (98-107); Potassium 3.2 mmol/L (3.5-5.1); Sodium 141 mmol/L (136-145)
[2023-08-04 08:43] LABS: Calcium 8.4 mg/dL (8.5-10.1)
[2023-08-04 08:48] LABS: Glucose 158 mg/dL (74-106)
[2023-08-04 08:51] LABS: BUN/Creatinine Ratio 8.9 (10.0-20.0); Blood Urea Nitrogen < 5 mg/dL (9-23)
[2023-08-04 08:53] LABS: Anion Gap 7 (5-15); Carbon Dioxide 30 mmol/L (20-30)
[2023-08-04] MEDS: POTASSIUM CHL 20MEQ/100ML 100 ML IV SCH (14:19)
[2023-08-04] MEDS: FUROSEMIDE 20 MG/2 ML VIAL IV ONE (14:19)
[2023-08-04] MEDS: POTASSIUM CHL 20MEQ/100ML 100 ML IV ONE (18:40)
[2023-08-04] MEDS: VANCOMYCIN 750mg/150ml 150 ML IV SCH (19:53)
[2023-08-05] VITALS (39 sets, daily range): BP systolic 85–160; BP diastolic 48–82; PULSE 50–91; RESP 9–24; TEMP 97.3–98.7; O2SAT 92–100
[2023-08-05 03:31] LABS: Calcium 8.9 mg/dL (8.7-10.4); Chloride 103 mmol/L (98-107); Potassium 3.5 mmol/L (3.5-5.1); Sodium 143 mmol/L (136-145)
[2023-08-05 03:32] LABS: Anion Gap 6 (5-15); Carbon Dioxide 34 mmol/L (20-30)
[2023-08-05 03:37] LABS: Glucose 61 mg/dL (74-106)
[2023-08-05 03:40] LABS: Basophils # (auto) 0 10 ^3/uL (0-0.2); Eosinophils # (auto) 0 10 ^3/uL (0-0.8); Hemoglobin 9.9 g/dL (12.2-16.2); Lymphocytes # (auto) 0.7 10 ^3/uL (0.4-5.4)
[2023-08-05 03:42] LABS: Basophils % (auto) 0.2 % (0.0-2.0); Eosinophils % (auto) 0.8 % (0.0-7.0); Hematocrit 31.5 % (36.0-46.0); Lymphocytes % (auto) 14.1 % (10.0-50.0); Mean Corpuscular Hemoglobin 24.7 pg (28.0-32.0); Mean Corpuscular Hgb Conc. 31.4 g/dL (32.0-36.0); Mean Corpuscular Volume 78.8 fL (80.0-100.0); Monocytes # (auto) 0.4 10 ^3/uL (0-1.3); Neutrophils # (auto) 3.9 10 ^3/uL (1.6-8.6); Neutrophils % (auto) 77.9 % (37.0-80.0); Nucleated Red Blood Cells % 0.2 %; Red Cell Distribution Width 22.7 % (11.8-14.3)
[2023-08-05 03:44] LABS: BUN/Creatinine Ratio 10.2 (10.0-20.0); Blood Urea Nitrogen < 5 mg/dL (9-23)
[2023-08-05] MEDS: cefTRIAXone 1GM/50ML D5W 50 ML IV ONE (11:22)
[2023-08-05] MEDS: ACETYLCYSTEINE 10 %(100MG/ML) SOL 4ML NEB SCH (14:12)
[2023-08-06] VITALS (35 sets, daily range): BP systolic 85–144; BP diastolic 46–86; PULSE 66–84; RESP 12–25; TEMP 97.9–98.3; O2SAT 96–100
[2023-08-06 05:13] LABS: Chloride 102 mmol/L (98-107); Potassium 3.4 mmol/L (3.5-5.1); Sodium 139 mmol/L (136-145)
[2023-08-06 05:14] LABS: Anion Gap 4 (5-15); Calcium 8.7 mg/dL (8.7-10.4); Carbon Dioxide 33 mmol/L (20-30)
[2023-08-06 05:19] LABS: BUN/Creatinine Ratio 9.3 (10.0-20.0); Blood Urea Nitrogen 5 mg/dL (9-23); Glucose 121 mg/dL (74-106)
[2023-08-06 06:00] LABS: Basophils # (auto) 0 10 ^3/uL (0-0.2); Eosinophils # (auto) 0 10 ^3/uL (0-0.8); Hemoglobin 9.7 g/dL (12.2-16.2); Lymphocytes # (auto) 0.9 10 ^3/uL (0.4-5.4); Mean Corpuscular Hemoglobin 24.9 pg (28.0-32.0); Monocytes # (auto) 0.3 10 ^3/uL (0-1.3); Neutrophils # (auto) 1.9 10 ^3/uL (1.6-8.6); Red Blood Cells 3.89 10^6/uL (4.0-5.20)
[2023-08-06 06:02] LABS: Basophils % (auto) 0.3 % (0.0-2.0); Lymphocytes % (auto) 29.4 % (10.0-50.0); Mean Corpuscular Hgb Conc. 31.2 g/dL (32.0-36.0); Mean Corpuscular Volume 79.8 fL (80.0-100.0); Monocytes % (auto) 9.3 % (0.0-12.0); Nucleated Red Blood Cells % 0.2 %; White Blood Cell 3.2 10^3/uL (4.4-10.8)
[2023-08-06 06:56] LABS: Red Cell Distribution Width 22.3 % (11.8-14.3)
[2023-08-06] MEDS: cefTRIAXone 1GM/50ML D5W 50 ML IV SCH (09:42)
[2023-08-06] MEDS: VALPROATE INJ 500 MG in SODIUM CHL 0.9% 100 ML IV SCH (10:09)
[2023-08-06 14:24] LABS: Rapid Influenza A Negative (Negative); Rapid Influenza B Negative (Negative)
[2023-08-06 14:25] LABS: COVID19 ANTIGEN SOFIA FIA NEGATIVE (NEGATIVE)
[2023-08-06] MEDS: Jevity 1.2 Cal/Fiber 1 Liter GT SCH (22:21)
[2023-08-07] VITALS (33 sets, daily range): BP systolic 94–148; BP diastolic 55–79; PULSE 60–86; RESP 9–98; TEMP 97.9–100.1; O2SAT 19–100
[2023-08-07 05:12] LABS: Basophils # (auto) 0 10 ^3/uL (0-0.2); Lymphocytes # (auto) 0.8 10 ^3/uL (0.4-5.4); Monocytes # (auto) 0.5 10 ^3/uL (0-1.3); Neutrophils # (auto) 2.2 10 ^3/uL (1.6-8.6); Nucleated Red Blood Cells % 0.2 %
[2023-08-07 05:14] LABS: Basophils % (auto) 0.4 % (0.0-2.0); Eosinophils # (auto) 0 10 ^3/uL (0-0.8); Eosinophils % (auto) 1.2 % (0.0-7.0); Hematocrit 30.8 % (36.0-46.0); Hemoglobin 9.6 g/dL (12.2-16.2); Lymphocytes % (auto) 23.6 % (10.0-50.0); Mean Corpuscular Hemoglobin 25.1 pg (28.0-32.0); Mean Corpuscular Hgb Conc. 31.3 g/dL (32.0-36.0); Mean Corpuscular Volume 80.3 fL (80.0-100.0); Monocytes % (auto) 13.4 % (0.0-12.0); Neutrophils % (auto) 61.4 % (37.0-80.0); Red Blood Cells 3.84 10^6/uL (4.0-5.20); Red Cell Distribution Width 22.3 % (11.8-14.3); White Blood Cell 3.5 10^3/uL (4.4-10.8)
[2023-08-07 05:21] LABS: Chloride 103 mmol/L (98-107); Potassium 3.6 mmol/L (3.5-5.1); Sodium 140 mmol/L (136-145)
[2023-08-07 05:22] LABS: Anion Gap 5 (5-15); Carbon Dioxide 32 mmol/L (20-30)
[2023-08-07 05:23] LABS: Calcium 8.4 mg/dL (8.5-10.1)
[2023-08-07 05:28] LABS: BUN/Creatinine Ratio 10.7 (10.0-20.0); Blood Urea Nitrogen 6 mg/dL (9-23); Glucose 202 mg/dL (74-106)
[2023-08-07] MEDS: VALPROATE IV SCH (14:27)
[2023-08-07] MEDS: SODIUM CHL 0.9% IV SCH (14:27)
[2023-08-08] VITALS (75 sets, daily range): BP systolic 66–211; BP diastolic 32–124; PULSE 55–198; RESP 16–98; TEMP 97.3–100.2; O2SAT 93–100
[2023-08-08] MEDS: SODIUM CHLORIDE 0.9% 250 ML IV ONE (08:00)
[2023-08-08] MEDS: NOREPINEPHRINE 8 MG/250ML KIT 250 ML IV SCH (08:23)
[2023-08-08] MEDS: NOREPINEPHRINE 8 MG/250ML KIT 250 ML IV ONE (09:05)
[2023-08-08] MEDS: MORPHINE SULFATE INJ 2 MG/ml SYRG IV PRN (18:20)
[2023-08-09] VITALS (8 sets, daily range): BP systolic 70–99; BP diastolic 34–57; PULSE 62–112; RESP 16–47; TEMP 97.1–101.8; O2SAT 70–100
[2023-08-09] MEDS: LORazepam 2MG/ML-1ML VIAL IV PRN (05:03)
[2023-08-10] VITALS (7 sets, daily range): BP systolic 94–121; BP diastolic 44–64; PULSE 84–109; RESP 19–24; TEMP 97.6–100; O2SAT 94–99
[2023-08-11] VITALS (12 sets, daily range): BP systolic 59–112; BP diastolic 25–63; PULSE 77–91; RESP 22–40; TEMP 92.3–99; O2SAT 41–100
[2023-08-12] VITALS (8 sets, daily range): BP systolic 42–69; BP diastolic 19–31; PULSE 60–99; RESP 20–60; TEMP 93.6; O2SAT 58–92
== END 2023-08-13 01:42 | DRG 720 ==
LOC: EDBD 08:04 → ER 08:04 → TELE 11:46 → ICU CENTRL 11:46 → TELE-CENTR 07-28 15:03 → TELE-EAST 07-30 20:30 → DOU 07-31 00:36 → TELE-EAST 07-31 00:45 → ICU WEST 08-01 10:41 → DOU IN ICU 08-05 20:40 → ICU CENTRL 08-08 10:30 → TELE-EAST 08-09 00:45 → EAST 08-09 03:16
PROVIDERS: ADMIT Internal Medicine Pulmonary Disease; ATTEND Internal Medicine
PROC: 5A1955Z Respiratory Ventilation, Greater than 96 Consecutive Hours (ICD-10-PCS; 2023-07-22)
PROC: 0BH17EZ Insertion of Endotracheal Airway into Trachea, Via Natural or Artificial Opening (ICD-10-PCS; 2023-07-22)
PROC: 05HA33Z Insertion of Infusion Device into Left Brachial Vein, Percutaneous Approach (ICD-10-PCS; 2023-07-28)
PROC: B54NZZA Ultrasonography of Left Upper Extremity Veins, Guidance (ICD-10-PCS; 2023-07-28)
PROC: 02HV33Z Insertion of Infusion Device into Superior Vena Cava, Percutaneous Approach (ICD-10-PCS; 2023-08-01)
PROC: B548ZZA Ultrasonography of Superior Vena Cava, Guidance (ICD-10-PCS; 2023-08-01)
PROC: 0B21XEZ Change Endotracheal Airway in Trachea, External Approach (ICD-10-PCS; 2023-08-01)
PROC: 5A1945Z Respiratory Ventilation, 24-96 Consecutive Hours (ICD-10-PCS; 2023-08-01)
PROC: 0BC68ZZ Extirpation of Matter from Right Lower Lobe Bronchus, Via Natural or Artificial Opening Endoscopic (ICD-10-PCS; principal; 2023-08-01 10:00)
PROC: 5A09357 Assistance with Respiratory Ventilation, Less than 24 Consecutive Hours, Continuous Positive Airway Pressure (ICD-10-PCS; 2023-08-03)
PROC: 5A1935Z Respiratory Ventilation, Less than 24 Consecutive Hours (ICD-10-PCS; 2023-08-04)
DX: A41.9 Sepsis, unspecified organism (principal); N17.0 Acute kidney failure with tubular necrosis; J96.01 Acute respiratory failure with hypoxia; J69.0 Pneumonitis due to inhalation of food and vomit; G93.41 Metabolic encephalopathy; I21.4 Non-ST elevation (NSTEMI) myocardial infarction; E11.10 Type 2 diabetes mellitus with ketoacidosis without coma; G40.401 Other generalized epilepsy and epileptic syndromes, not intractable, with status epilepticus; G93.1 Anoxic brain damage, not elsewhere classified; R65.20 Severe sepsis without septic shock; D63.1 Anemia in chronic kidney disease; E83.51 Hypocalcemia; Z20.822 Contact with and (suspected) exposure to COVID-19; E11.22 Type 2 diabetes mellitus with diabetic chronic kidney disease; E03.9 Hypothyroidism, unspecified; E78.5 Hyperlipidemia, unspecified; E86.0 Dehydration; Z66 Do not resuscitate; E87.1 Hypo-osmolality and hyponatremia; E87.5 Hyperkalemia; F17.210 Nicotine dependence, cigarettes, uncomplicated; G24.9 Dystonia, unspecified; G93.89 Other specified disorders of brain; N18.9 Chronic kidney disease, unspecified; N39.0 Urinary tract infection, site not specified; I12.9 Hypertensive chronic kidney disease with stage 1 through stage 4 chronic kidney disease, or unspecified chronic kidney disease; G20.B1 Parkinson's disease with dyskinesia, without mention of fluctuations; M10.9 Gout, unspecified; T68.XXXA Hypothermia, initial encounter; E87.0 Hyperosmolality and hypernatremia; E87.6 Hypokalemia; I16.0 Hypertensive urgency; E11.42 Type 2 diabetes mellitus with diabetic polyneuropathy; X31.XXXA Exposure to excessive natural cold, initial encounter; Z90.710 Acquired absence of both cervix and uterus; Z82.49 Family history of ischemic heart disease and other diseases of the circulatory system; Z74.01 Bed confinement status; Z79.4 Long term (current) use of insulin; Z83.3 Family history of diabetes mellitus; Z82.3 Family history of stroke; Z79.899 Other long term (current) drug therapy
CPT/HCPCS: 31500; 31622; 36415; 36600; 70450; 71045; 73562; 80048; 80053; 80061; 80202; 81001; 82010; 82040; 82550; 82570; 82805; 82962; 83036; 83605; 83735; 83930; 84100; 84300; 84439; 84443; 84481; 84484; 85025; 85610; 86850; 86900; 86901; 87040; 87070; 87077; 87081; 87086; 87186; 87205; 87426; 87804; 92507; 92610; 93005; 93306; 94002; 94003; 94640; 94660; 95819; 97163; 99291; 99292; C9113; G0378; J0330; J1100; J1815; J2250; J2704; J3480; J3490; J7060